=== PATIENT | female | born 1960 | race Caucasian/White ===

== ENCOUNTER 2016-07-15 17:54 | Emergency (ER) | payer OTHER ==
[~2016-07-15] VITALS: Ht 162.6 cm; Wt 127.0 kg
[~2016-07-15 17:54] MED LIST: ALBUTEROL SULFAT3 M1 INH; ATORVASTATIN CA40 MG PO; AUGMENTIN 875 M1 TAB PO; CARISOPRODOL350 MG PO; CELECOXIB200 MG PO; DEXTROAMPH SACC20 MG PO; FLUTICASON0.05 MG/A2 NAS; FUROSEMIDE40 MG PO; HUMALOG 100U100 U/ML SC; LEVAQUIN500 MG PO; LEVEMIR FL300 UNITS/ SC; LISINOPRIL20 MG PO; LYRICA150 MG PO; METFORMIN HYD1000 MG PO; METHADONE HYDRO10 MG PO; MONTELUKAST SOD10 MG PO; MORPHINE SULFAT30 M1 PO; POTASSIUM CHLO20 ME1 PO; TUSSIONEX PENN480 ML PO
--- NOTE | 2016-07-15 18:20 | ED GENERAL ADULT ---
History of Present Illness General Chief Complaint: General Adult Stated Complaint: BIBA FOR LOW BLOOD SUGAR Source: patient Exam Limitations: no limitations Vital Signs & Intake/Output Vital Signs & Intake/Output Vital Signs Date Time Temp Pulse Resp B/P Pulse O2 O2 Flow FiO2 Ox Delivery Rate 07/15 2045 97.9 81 20 147/76 91 Room Air 07/15 1849 Room Air 07/15 1808 98.3 73 16 117/55 98 Room Air Allergies Coded Allergies: NO KNOWN ALLERGIES (03/19/11) Reconcile Medications Albuterol Sulfate 3 ML NEB 3 ML INH TID ASTHMA/BRONCHITIS (Reported) AMOXICILLIN/POTASSIUM CLAV (Augmentin 875-125 Tablet) 875 MG/125 MG TAB 1 TAB PO BID DOG BITE/OPEN FRACTURE Amphetamine Salt Combination (Dextroamph Sacc/Amph Asp/Dextroam Sulf/Amphet) 20 MG TAB 1 TAB PO TID ADHD (Reported) Atorvastatin Calcium (Lipitor) 40 MG TABLET 1 TAB PO DAILY CHOLESTEROL ( Reported) Carisoprodol 350 MG TABLET 1 TAB PO 4 TIMES/DAY MUSCLE SPASMS (Reported) Celecoxib 200 MG CAPSULE 1 CAP PO DAILY OA (Reported) Fluticasone Propionate 50 MCG/ACTUATION SPRAY.SUSP 1 SPRAY JOSELO DAILY SINUSES (Reported) Furosemide 40 MG TABLET 1-2 TAB PO AD DIURETIC (Reported) HYDROCODONE/CHLORPHEN P-STIREX (Tussionex Pennkinetic Susp) (Unknown Strength) ALICIA.ER.12H (Unknown Dose) PO AD BRONCHITIS (Reported) Insulin Detemir (Levemir Flexpen) 100 UNIT/ML (3 ML) INSULN.PEN 23 UNITS SC QHS DIABETES (Reported) Insulin Lispro (Humalog) 100 UNIT/ML VIAL 10-20 UNITS SC TID AC DIABETES ( Reported) Levofloxacin (Levaquin) 500 MG TABLET 1 TAB PO DAILY BRONCHITIS/SINUS INFECTION (Reported) Lisinopril 20 MG TABLET 1 TAB PO DAILY BP (Reported) METFORMIN HCL (Metformin Hydrochloride) 1,000 MG TABLET 0.5 TAB PO DAILY DIABETES (Reported) METHADONE HCL (Methadone Hydrochloride) 10 MG TABLET 8 TAB PO AD PAIN ( Reported) Montelukast Sodium 10 MG TABLET 1 TAB PO QPM ALLERGIES (Reported) Morphine Sulfate 30 MG TAB 1 TAB PO 4 TIMES/DAY PAIN (Reported) Potassium Chloride 20 MEQ TABLET.ER 1 TAB PO DAILY SUPPLEMENT (Reported) Pregabalin (Lyrica) 150 MG CAPSULE 1 CAP PO BID NEUROPATHY (Reported) Triage Nurses Notes Reviewed? yes HPI: This patient is a 55 year old female with a past medical history including diabetes who presented to the emergency department [facility] for evaluation of low blood sugar. The patient reported that she went to a doctor's appointment this afternoon without eating anything beforehand. She reported that after her appointment she went to a restaurant to get soup. She reported, "I must have started to pass out or something because then the police came and brought me here."Her blood sugar en route was 40. She was given 200cc of D10 which brought the sugar up to 147. The patient is denying and chest pain, difficulty breathing , nausea, vomiting, headache, dizziness, lightheadedness, fevers, or any other symptoms. She reported, "I just dont feel good." (DANIELLE ALSTON PA-C) Past History Travel History Traveled to [place] past 21 day No Medical History Any Pertinent Medical History? see below for history Cardiovascular: hypertension, hyperlipidemia Respiratory: asthma Musculoskeletal: chronic back pain Endocrine: diabetes Tetanus Vaccine: 08/23/14 Surgical History Surgical History: non-contributory Psychosocial History What is your primary language Vietnamese Family History Hx Contributory? No (DANIELLE ALSTON PA-C) Review of Systems Review of Systems Constitutional: Reports: no symptoms. EENTM: Reports: no symptoms. Respiratory: Reports: no symptoms. Cardiovascular: Reports: no symptoms. GI: Reports: no symptoms. Genitourinary: Reports: no symptoms. Musculoskeletal: Reports: no symptoms. Skin: Reports: no symptoms. Neurological/Psychological: Reports: no symptoms. Hematologic/Endocrine: Reports: see HPI. All Other Systems: Reviewed and Negative (DANIELLE ALSTON PA-C) Physical Exam Physical Exam General Appearance: well developed/nourished, alert, awake, mild distress Comments: Well-developed well-nourished person in no acute distress HEENT: Normal EENT exam, head normocephalic, moist mucous membranes PERRLA bilaterally Neck: Supple, no lymphadenopathy Back: Normal inspection Cardiovascular: Regular rate and rhythm with no murmurs, rubs, or gallops Respiratory: Chest nontender. No respiratory distress. Few scattered expiratory wheezes heard on auscultation with no rales or rhonchi Abdomen: Soft, nontender nondistended, no appreciable organomegaly. Normal bowel sounds. No ascites Extremity: Noormal and equal pulses. Neuro: Alert oriented x3, cranial nerves II through XII grossly intact. Skin: No appreciable rash on exposed skin, skin is warm and dry. Psych: Mood and affect is flat Core Measures ACS in differential dx? Yes CVA/TIA Diagnosis: No Severe Sepsis Present: No Septic Shock Present: No (GAMALIEL PRYOR,DANIELLE) Progress Differential Diagnoses I considered the following diagnoses in my evaluation of the patient: [ hypoglycemia, DKA, medicaiton reaction, syncope, sepsis] Diagnostic Imaging: Viewed by Me: Radiology Read. Discussed w/RAD: Radiology Read. CXR Impression: PATIENT: ANGEL PARR PRESENT AGE: 55 PATIENT ACCOUNT NO: [id number] : 58 LOCATION: [facility] ORDERING PHYSICIAN: DANIELLE ALSTON PA-C SERVICE DATE: 07/15/16 EXAM TYPE: RAD - XRY- PORTABLE CHEST XRAY EXAMINATION: XR PORTABLE CHEST CLINICAL INFORMATION: Low breath sounds. Wheezing. COMPARISON: Chest x-ray 06/13/2013 TECHNIQUE: Portable AP portable view of the chest was obtained. 7:10 PM FINDINGS: Patient rotated to the right. Status post median sternotomy. No pulmonary vascular congestion. No infiltrate or pleural effusion. No pneumothorax. IMPRESSION: No acute change of chest. DICTATED BY: ROCCO RUBIO MD DATE/TIME DICTATED:07/15/162018 GREASE PACKER:NITIN DATE/TIME TRANSCRIBED:07/15/162018 CONFIDENTIAL, DO NOT COPY WITHOUT APPROPRIATE AUTHORIZATION. <Electronically signed in Other Vendor System> SIGNED BY: ROCCO RUBIO MD 07/15/162023 Initial ED EKG: none Comments: 07/15/2016 7:38:24 PM: Informed by RN that the patient is refusing second amp of D50. The patient was up to void and is currently sitting up eating a food tray. She is calling her to let him know where she is. Discussed this patient with Dr. Garcia who suggested that she be put on a D10 drip. 07/15/2016 8:17:38 PM: I was at the patient's bedside for [id number] evaluation. She is sitting up in the stretcher, alert and oriented. She is currently eating from a food tray. No acute distress and nontoxic appearing. The patient is still refusing another amp of D50. She reported, "I just need to eat." 07/15/2016 8:58:11 PM: Again at the patient's bedside for re-evaluation. She finished eating and is alert and oriented. Reporting that she wants to go home. Last took insulin at around 12:30PM. Will recheck blood sugar. 07/15/2016 9:59:13 PM: This patient is requesitng to go home. Alert and oriented x23. BS 130. Discussed this patient with Dr. Garcia who is in agreement that this patient can be discharged at this time. (GAMALIEL PRYOR,DANIELLE) Plan of Care: Orders Procedure Date/time Status Heart Healthy Diet 07/16 B Active LACTIC ACID 07/15 2118 Active URINALYSIS 07/15 1818 Complete AMMONIA 07/15 1818 Complete LACTIC ACID 07/15 1818 Complete COMPREHENSIVE METABOLIC PANEL 07/15 1818 Complete CBC WITHOUT DIFFERENTIAL 07/15 1818 Complete ACETONE 07/15 1818 Complete Laboratory Tests 07/15/16 1930: Urine Color YEL, Urine Clarity CLEAR, Urine pH 6.5, Ur Specific [place] <= 1.005 , Urine Protein NEG, Urine Ketones NEG, Urine Nitrite NEG, Urine Bilirubin NEG, Urine Urobilinogen 0.2, Ur Leukocyte Esterase NEG, Ur Microscopic EXAM NOT REQUIRED, Urine Hemoglobin NEG, Urine Glucose NEG 07/15/16 1840: Anion Gap 8, Estimated GFR > 60, BUN/Creatinine Ratio 20.0, Glucose 197 H, Lactic Acid 1.1, Calcium 8.7, Total Bilirubin 0.2, AST 35, ALT 78 H, Alkaline Phosphatase 93, Ammonia 12, Total Protein 6.4, Albumin 3.6, Globulin 2.8, Albumin/Globulin Ratio 1.3, CBC w Diff NO MAN DIFF REQ, RBC 4.18 L, MCV 86.6, MCH 28.8, RDW 15.7 H, MPV 7.9, Gran % 75.7 H, Lymphocytes % 14.3 L, Monocytes % 7.8, Eosinophils % 2.0, Basophils % 0.2, Absolute Granulocytes 8.5 H, Absolute Lymphocytes 1.6, Absolute Monocytes 0.9 H, Absolute Eosinophils 0.2, Absolute Basophils 0, PUBS MCHC 33.2, Acetone Level NEGATIVE Departure Departure Disposition: HOME OR SELF CARE Condition: Stable Clinical Impression Primary Impression: Hypoglycemia Referrals: DAVID NORTH,ENMA Allen (PCP/Family) Additional Instructions: Please schedule a follow-up appointment with your primary care physician. Return iummediately for any worsening symptoms or concerns. Departure Forms: Customer Survey General Discharge Information (DANIELLE ALSTON PA-C) PA/DISK OPERATOR Co-Sign Statement Statement: ED Attending supervision documentation- [] I saw and evaluated the patient. I have also reviewed all the pertinent lab results and diagnostic results. I agree with the findings and the plan of care as documented in the PA's/DISK OPERATOR's documentation. [X] I have reviewed the ED Record and agree with the PA's/DISK OPERATOR's documentation. [] Additions or exceptions (if any) to the PAs/DISK OPERATOR's note and plan are summarized below: [] (GLORIA NORTH,CEE Torre) Critical Care Note Critical Care Note Critical Care Time: 30-74 min (DANIELLE ALSTON PA-C)
[2016-07-15 18:48] LABS: ABSOLUTE BASOPHIL COUNT 0 /CUMM (0.0-0.2); ABSOLUTE EOSINOPHIL COUNT 0.2 /CUMM (0.0-0.7); ABSOLUTE GRANULOCYTE CT 8.5 /CUMM (1.4-6.5); ABSOLUTE LYMPH COUNT 1.6 /CUMM (1.2-3.4); ABSOLUTE MONOCYTE COUNT 0.9 /CUMM (0.10-0.60); BASOPHIL % 0.2 % (0.0-2.0); GRANULOCYTE % 75.7 % (42.2-75.2); HEMATOCRIT 36.2 % (37-47); MEAN CORPUSCULAR HGB 28.8 PG (27.0-31.0); MEAN CORPUSCULAR HGB CONC 33.2 G/DL (33.0-37.0); MEAN CORPUSCULAR VOLUME 86.6 FL (81.0-99.0); MEAN PLATELET VOLUME 7.9 FL (7.4-10.4); PLATELET COUNT 271 /CUMM (130-400); RBC DISTRIBUTION WIDTH 15.7 % (11.5-14.5); RED BLOOD CELL CT 4.18 /CUMM (4.20-5.40); WHITE BLOOD CELL COUNT 11.2 /CUMM (4.8-10.8)
--- NOTE | 2016-07-15 20:24 | RADIOLOGY REPORT ---
EXAMINATION: XR PORTABLE CHEST CLINICAL INFORMATION: Low breath sounds. Wheezing. COMPARISON: Chest x-ray 06/13/2013 TECHNIQUE: Portable AP portable view of the chest was obtained. 7:10 PM FINDINGS: Patient rotated to the right. Status post median sternotomy. No pulmonary vascular congestion. No infiltrate or pleural effusion. No pneumothorax. IMPRESSION: No acute change of chest.
[2016-07-15 20:46] VITALS: BP 147/76
== END 2016-07-15 22:06 ==
LOC: ERH 17:54
PROVIDERS: Physician Assistant
DX: E11.649 Type 2 diabetes mellitus with hypoglycemia without coma (principal)
CPT/HCPCS: 81003; 96374

== ENCOUNTER 2016-08-28 15:21 | Inpatient (IN) | payer OTHER, MEDICARE ==
[~2016-08-28] VITALS: Ht 162.6 cm; Wt 122.5 kg
--- NOTE | 2016-08-28 15:25 | NUR ---
56 YEAR OLD FEMALE BIBA FROM DOCTORS OFFICE FOR SHORTNESS OF BREATH. PER EMS PT HAS BEEN TREATED FOR URI SYMPTOMS, UPON ARRIVAL O2 SAT WAS IN THE LOW 90'S. PT ARRIVED TO DEPARTMENT ALERT AND ORIENTED X3 WITH DUONEB RUNNING. PT REPORTS RELIEF FROM BREATHING TREATMENT, SPEAKING IN FULL SENTENCES. PT CHIEF COMPLAINT IS OF RASH ON ABDOMEN, PT ALSO REPORTS THE CELLULITIS IN BLE IS "FLARED UP."
--- NOTE | 2016-08-28 15:34 | ED GENERAL ADULT ---
History of Present Illness General Chief Complaint: Dyspnea (COPD, CHF, Other) Stated Complaint: BIBA SOB Source: patient, EMS Exam Limitations: no limitations Vital Signs & Intake/Output Vital Signs & Intake/Output Vital Signs Date Time Temp Pulse Resp B/P Pulse O2 O2 Flow FiO2 Ox Delivery Rate 08/29 2023 96.5 80 18 162/82 93 Nasal 2.0L Cannula 08/28 1850 94 Nasal 3.0L Cannula 08/28 1741 96.2 86 20 146/68 95 Nasal 2.0L Cannula 08/28 1606 91 Nasal 3.0L Cannula 08/28 1550 97 Nasal 4.0L Cannula 08/28 1547 98.8 22 84 Room Air Room Air 08/28 1524 88 22 132/68 98 Non ReBreather Allergies Coded Allergies: NO KNOWN ALLERGIES (03/19/11) Reconcile Medications Albuterol Sulfate 2.5 MG/3 ML (0.083 %) VIAL.NEB 1 Vial INH/ABBEY 4 TIMES/DAY COPD (Reported) Albuterol Sulfate (Ventolin Hfa) 90 MCG HFA.AER.AD 2 PUF INH PRN COPD ( Reported) Carisoprodol 350 MG TABLET 1 TAB PO TID MUSCLE RELAXER (Reported) Fluticasone Propionate 50 MCG/ACTUATION SPRAY.SUSP 2 SPRAY [place]B DAILY ALLERGIES (Reported) Fluticasone/Salmeterol (Advair 250-50 Diskus) 250 MCG-50 MCG/DOSE BLST.W.DEV 1 PUF INH BID COPD (Reported) Furosemide 80 MG TABLET 2 TAB PO QAM DIURETIC (Reported) Furosemide (Lasix) 80 MG TABLET 1 TAB PO QPM DIURETIC (Reported) Insulin Detemir (Levemir Flextouch) 100 UNIT/ML (3 ML) INSULN.PEN 24 UNITS SC QHS DM (Reported) Insulin Lispro (Humalog Kwikpen U-100) 100 UNIT/ML INSULN.PEN 15 UNITS SC QAM DM (Reported) Insulin Lispro (Humalog Kwikpen U-100) 100 UNIT/ML INSULN.PEN 30 UNITS SC BID DM (Reported) Levofloxacin 500 MG TABLET 1 TAB PO DAILY ANTIBIOTIC (Reported) Lisinopril 20 MG TABLET 1 TAB PO DAILY BP (Reported) Metformin HCl 1,000 MG TABLET 1 TAB PO BID DM (Reported) Methadone Hydrochloride (Methadone HCl) 10 MG TABLET 70 MG PO DAILY PAIN ( Reported) Metolazone 2.5 MG TABLET 1 TAB PO 2XW DIURETIC (Reported) Morphine Sulfate 15 MG TABLET 1 TAB PO TID PAIN (Reported) Potassium Chloride 20 MEQ TAB.ER.PRT 1 TAB PO TID SUPPLEMENT (Reported) Prednisone 5 MG TABLET 10 MG PO BID STEROID (Reported) Pregabalin (Lyrica) 300 MG CAPSULE 1 CAP PO BID NERVE PAIN (Reported) Tiotropium [place] (Spiriva) 18 MCG CAP.W.DEV 1 CAP INH DAILY COPD (Reported) Trazodone HCl 50 MG TABLET 1 TAB PO QPM SLEEP (Reported) Triamcinolone Acetonide 0.1 % CREAM..G. 1 KENA TOP PRN RASH (Reported) Triage Note: 56 YEAR OLD FEMALE BIBA FROM DOCTORS OFFICE FOR SHORTNESS OF BREATH. PER EMS PT HAS BEEN TREATED FOR URI SYMPTOMS, UPON ARRIVAL O2 SAT WAS IN THE LOW 90'S. PT ARRIVED TO DEPARTMENT ALERT AND ORIENTED X3 WITH DUONEB RUNNING. PT REPORTS RELIEF FROM BREATHING TREATMENT, SPEAKING IN FULL SENTENCES. PT CHIEF COMPLAINT IS OF RASH ON ABDOMEN, PT ALSO REPORTS THE CELLULITIS IN BLE IS "FLARED UP." Triage Nurses Notes Reviewed? yes Onset: Abrupt Duration: day(s): Timing: recent history HPI: 08/28/16 The patient was seen on arrival She is a 56-year-old female presents to the emergency department with severe difficulty breathing and expiratory wheezes. She has significant COPD. She continues to smoke. The onset of the symptoms were abrupt, the duration is really unknown, the severity is significant as her symptoms required her to come to the emergency department for care. Upon arrival her O2 sats were in the low 80s. She was confused at times. She is placed on oxygen. She was given albuterol Atrovent nebulizer treatment. Past History Travel History Traveled to [place] past 21 day No Medical History Any Pertinent Medical History? see below for history Neurological: NONE EENT: NONE Cardiovascular: hypertension, hyperlipidemia Respiratory: asthma Gastrointestinal: NONE Hepatic: NONE Renal: NONE Musculoskeletal: chronic back pain Psychiatric: NONE Endocrine: diabetes Blood Disorders: NONE Cancer(s): NONE Tetanus Vaccine: 08/23/14 Surgical History Surgical History: non-contributory Psychosocial History What is your primary language Uzbek Tobacco Use: Never used Family History Hx Contributory? No Review of Systems Review of Systems Constitutional: Denies: fever. EENTM: Denies: visual changes. Respiratory: Reports: cough, short of breath. Cardiovascular: Denies: chest pain. GI: Denies: abdominal pain. Genitourinary: Reports: no symptoms. Musculoskeletal: Reports: no symptoms. Skin: Reports: no symptoms. Neurological/Psychological: Reports: no symptoms. Hematologic/Endocrine: Denies: bruising, bleeding. Physical Exam Physical Exam General Appearance: alert, awake, anxious, moderate distress Head: atraumatic, normal appearance Eyes: Bilateral: normal appearance, PERRL, EOMI. Ears, Nose, Throat: normal ENT inspection Neck: normal inspection, supple Respiratory: decreased breath sounds, wheezing Cardiovascular: tachycardia Peripheral Pulses: 4+ radial (R), 4+ radial (L) Gastrointestinal: soft, non-tender Back: normal range of motion Extremities: pedal edema Neurologic/Psych: awake, alert, oriented x 3 Skin: intact, normal color, warm/dry Core Measures ACS in differential dx? No CVA/TIA Diagnosis: No Severe Sepsis Present: No Septic Shock Present: No Progress Differential Diagnoses I considered the following diagnoses in my evaluation of the patient: [COPD, CHF , pulmonary embolism, pneumonia] Plan of Care: Orders Procedure Date/time Status Consistent Carbohydrate 3 08/29 B Active CBC WITHOUT DIFFERENTIAL 08/29 0600 Active BASIC ELECTROLYTES PLUS BUN&CR 08/29 0600 Active TRC EVALUATION (GEN) 08/28 2120 Active Pathway - chart 08/28 2120 Active CULTURE,URINE 08/28 2120 Active STREP PNEUMO URINARY ANTIGEN 08/28 2120 Active LEGIONELLA URINARY ANTIGEN 08/28 2120 Active BLOOD CULTURE 08/28 2120 Active URINE DRUGS OF ABUSE 08/28 2120 Active URINALYSIS 08/28 2120 Active TROPONIN LEVEL 08/28 2120 Active EKG 08/28 2120 Active CTA CHEST-PULMONARY EMBOLISM 08/29 2055 Active Patient Data 08/28 1927 Active ED Holding Orders 08/28 1841 Active Admit to inpatient 08/28 1841 Active Vital Signs 08/28 1841 Active Code Status 08/28 1841 Active CIWA 08/28 1750 Active FingerStick- Glucose 08/28 1602 Active Add-on Test (ER Only) 08/28 1551 Active ARTERIAL BLOOD GAS (GEN) 08/28 1544 Active Telemetry/Process Technician 08/28 1544 Complete Intake & Output 08/28 1543 Active B-TYPE NATRIURETIC PEP (BNP) 08/28 1529 Complete TROPONIN LEVEL 08/28 1528 Complete D-DIMER 08/28 1528 Complete COMPREHENSIVE METABOLIC PANEL 08/28 1528 Complete CBC WITHOUT DIFFERENTIAL 08/28 1528 Complete EKG 08/28 1525 Active US-EXT BILAT VENOUS DOPPLER 08/28 UNK Active House Staff 08/28 UNK Active VTE Mechanical Prophylaxis 08/28 UNK Active Vital Signs 08/28 UNK Active Intake & Output 08/28 UNK Active FingerStick- Glucose 08/28 UNK Active Current Medications Sig/Zeyad Start time Last Medication Dose Stop Time Status Admin Furosemide 160 MG DAILY 08/29 1000 AC (Lasix) Lisinopril 20 MG DAILY 08/29 1000 AC (Prinivil) Methadone HCl 70 MG DAILY 08/29 1000 AC (Dolophine) Pregabalin 300 MG BID 08/29 1000 AC (Lyrica) Tiotropium [place] 1 PUF DAILY 08/29 1000 AC (Spiriva) Insulin Aspart 0 TIDAC 08/29 0800 AC (NovoLOG) Methylprednisolone 40 MG Q8 08/29 0600 AC (Solumedrol) Azithromycin 500 MG DAILY 08/28 2200 AC (Zithromax) Sodium Chloride 250 ML (Normal Saline 0.9%) Budesonide/ 2 PUF BID 08/28 2200 AC Formoterol Fumarate (Symbicort) Carisoprodol 350 MG TID 08/28 2200 AC (Soma) Furosemide 80 MG QPM 08/28 220 AC (Lasix) Heparin Sodium 5,000 UNIT Q8 08/280 AC (Porcine) Insulin Detemir 12 UNITS BID 08/28 2199 AC (Levemir) Morphine Sulfate 15 MG TID 08/28 2199 AC (MSIR) Trazodone HCl 50 MG QPM 08/28 220 AC (Desyrel) Laboratory Tests 08/28/16 1550: pH 7.36, pCO2 48 H, pO2 73 L, HCO3 27, ABG O2 Sat (Measured) 91.0 L, P-50 ( Temp Corrected) N, Carboxyhemoglobin 2.5, O2 Concentration % 4L, Temperature 98.8, O2 Delivery Method NC, Phlebotomy Draw Site RIGHT RADIAL 08/28/16 1544: Troponin I Cancelled, D-Dimer Cancelled 08/28/16 1529: Anion Gap 9, Estimated GFR > 60, BUN/Creatinine Ratio 14.0, Glucose 36 *L, Calcium 9.0, Total Bilirubin 0.4, AST 56 H, ALT 103 H, Alkaline Phosphatase 83 , Troponin I < 0.01, Hzg-O-Vkhqhcaqfzn Pept 653 H, Total Protein 6.6, Albumin 3.8, Globulin 2.8, Albumin/Globulin Ratio 1.4, CBC w Diff NO MAN DIFF REQ, RBC 4.30, MCV 86.6, MCH 28.6, RDW 16.4 H, MPV 8.0, Gran % 88.6 H, Lymphocytes % 6.5 L, Monocytes % 4.0, Eosinophils % 0.8, Basophils % 0.1, Absolute Granulocytes 9.5 H, Absolute Lymphocytes 0.7 L, Absolute Monocytes 0.4, Absolute Eosinophils 0.1, Absolute Basophils 0, PUBS MCHC 33.0 08/28/16 1528: D-Dimer 390 H Microbiology 08/28 2120 URINE ROUT: Legionella Antigen - ORD 08/28 2120 URINE ROUT: Streptococcus pneumoniae Antigen (M - ORD 08/28 2120 URINE ROUT: Urine Culture - ORD 08/28 2120 BLOOD: Blood Culture - ORD 08/28 2120 BLOOD: Blood Culture - ORD Initial ED EKG: NSR, nonspecific ST T wave chg, right bundle-branch block, left anterior fascicular block, no significant change from the old Prior EKG: unchanged Departure Departure Disposition: STILL A PATIENT Condition: Stable Clinical Impression Primary Impression: COPD (chronic obstructive pulmonary disease) Referrals: ENMA HERNANDEZ MD (PCP/Family) Departure Forms: Customer Survey General Discharge Information Comments Chest x-ray was negative for pneumonia PATIENT: ANGEL PARR PRESENT AGE: 56 PATIENT ACCOUNT NO: [id number] : 58 LOCATION: [facility] ORDERING PHYSICIAN: EDGARDO DAVIES DO SERVICE DATE: 08/28/16 EXAM TYPE: RAD - XRY-PORTABLE CHEST XRAY EXAMINATION: XR PORTABLE CHEST CLINICAL INFORMATION: Shortness of breath COMPARISON: Chest x-ray 07/15/2016 , 06/13/2013 TECHNIQUE: Portable AP view of the chest was obtained. 3:49 PM FINDINGS: There is breathing motion. Status post median sternotomy. Heart size is enlarged. No pulmonary vascular congestion. No infiltrate or pleural effusion. Leads overlie the chest. IMPRESSION: No acute abnormality of chest. DICTATED BY: ROCCO RUBIO MD DATE/TIME DICTATED:08/28/161558 REMOTE PILOT OPERATOR:NITIN DATE/TIME TRANSCRIBED:08/28/161558 CONFIDENTIAL, DO NOT COPY WITHOUT APPROPRIATE AUTHORIZATION. <Electronically signed in Other Vendor System> SIGNED BY: ROCCO RUBIO MD 08/28/16 1445 Admission Note Spoke With: DAVE VELÁSQUEZ MD Documentation of Exam: Documentation of any treatments & extenuating circumstances including Concerns Regarding Discharge (functional status, medication knowledge or non-compliance, living conditions, etc.) that warrant an admission rather than observation: [The patient needs admission for IV steroids, oxygen, nebulizer treatments every 4-6 hours] Critical Care Note Critical Care Note Critical Care Time: 30-74 min
--- NOTE | 2016-08-28 15:42 | NUR ---
DR. DAVIES TO BEDSIDE FOR EVAL.
[2016-08-28 15:47] LABS: ABSOLUTE BASOPHIL COUNT 0 /CUMM (0.0-0.2); ABSOLUTE EOSINOPHIL COUNT 0.1 /CUMM (0.0-0.7); ABSOLUTE GRANULOCYTE CT 9.5 /CUMM (1.4-6.5); ABSOLUTE LYMPH COUNT 0.7 /CUMM (1.2-3.4); ABSOLUTE MONOCYTE COUNT 0.4 /CUMM (0.10-0.60); BASOPHIL % 0.1 % (0.0-2.0); EOSINOPHIL % 0.8 % (0-5); GRANULOCYTE % 88.6 % (42.2-75.2); HEMATOCRIT 37.2 % (37-47); MEAN CORPUSCULAR HGB 28.6 PG (27.0-31.0); MEAN CORPUSCULAR VOLUME 86.6 FL (81.0-99.0); PLATELET COUNT 251 /CUMM (130-400); RBC DISTRIBUTION WIDTH 16.4 % (11.5-14.5); WHITE BLOOD CELL COUNT 10.7 /CUMM (4.8-10.8)
--- NOTE | 2016-08-28 15:48 | NUR ---
RESPIRATORY TO BEDSIDE FOR DUONEB. RADIOLOGY TO BEDSIDE FOR PCXY.
--- NOTE | 2016-08-28 16:05 | NUR ---
PT FOUND TO HAVE FBG <50, DR. DAVIES AWARE, PT PROVIDED WITH APPLE JUICE. WILL RECHECK IN 30 MINUTES.
--- NOTE | 2016-08-28 16:07 | RADIOLOGY REPORT ---
EXAMINATION: XR PORTABLE CHEST CLINICAL INFORMATION: Shortness of breath COMPARISON: Chest x-ray 07/15/2016 , 06/13/2013 TECHNIQUE: Portable AP view of the chest was obtained. 3:49 PM FINDINGS: There is breathing motion. Status post median sternotomy. Heart size is enlarged. No pulmonary vascular congestion. No infiltrate or pleural effusion. Leads overlie the chest. IMPRESSION: No acute abnormality of chest.
--- NOTE | 2016-08-28 16:15 | NUR ---
CRITICAL TEST RESULTS [id number] ANGEL PARR 56 F TESTS AND RESULTS: GLUCOSE 36 Results received and read back by: KELLY MAYO Results received date and time: 08/28/16 1615 The following provider was notified of the results, and read the results back: DR DAVIES Notified date and time: 08/28/16 at 1615
--- NOTE | 2016-08-28 16:33 | NUR ---
REPEAT FBG 70 AT THIS TIME.
--- NOTE | 2016-08-28 16:56 | NUR ---
ASSISTED PT UP TO BEDSIDE COMMODE. PT URINATED APPROX 300CC IN COMMODE. PT BACK IN BED, EATING FOOD TRAY AT THIS TIME
[2016-08-28] MEDS ORDERED: ALBUTEROL2.5 MG/3 M INH/SOL (18:29)
[2016-08-28] MEDS ORDERED: TRIAMCINOLONE A15 G1 TOP (18:30)
[2016-08-28] MEDS ORDERED: FUROSEMIDE80 M1 PO (18:30)
[2016-08-28] MEDS ORDERED: LASIX80 M1 PO (18:30)
[2016-08-28] MEDS ORDERED: ADVAIR 250-501 EACH INH (18:31)
[2016-08-28] MEDS ORDERED: METOLAZONE2.5 M1 PO (18:31)
[2016-08-28] MEDS ORDERED: METFORMIN HCL1000 M1 PO (18:32)
[2016-08-28] MEDS ORDERED: SPIRIVA18 MCG INH (18:32)
[2016-08-28] MEDS ORDERED: LEVOFLOXACIN500 M1 PO (18:32)
[2016-08-28] MEDS ORDERED: MORPHINE SULFAT15 M4 PO (18:33)
[2016-08-28] MEDS ORDERED: METHADONE HCL10 M1 PO (18:33)
[2016-08-28] MEDS ORDERED: PREDNISONE5 M1 PO (18:34)
[2016-08-28] MEDS ORDERED: POTASSIUM CHLO20 ME2 PO (18:34)
[2016-08-28] MEDS ORDERED: TRAZODONE HCL50 M1 PO (18:35)
[2016-08-28] MEDS ORDERED: VENTOLIN HFA18 GM INH (18:35)
[2016-08-28] MEDS ORDERED: HUMALOG KW100 UNIT/1 SC ×2 (18:36→18:37)
[2016-08-28] MEDS ORDERED: FLUTICASONE PRO16 GM NASB (18:36)
[2016-08-28] MEDS ORDERED: CARISOPRODOL350 M1 PO (18:37)
[2016-08-28] MEDS ORDERED: LISINOPRIL20 M1 PO (18:37)
[2016-08-28] MEDS ORDERED: LYRICA300 M1 PO (18:38)
[2016-08-28] MEDS ORDERED: LEVEMIR FL100 UNIT/1 SC (18:38)
--- NOTE | 2016-08-28 19:08 | NUR ---
RT TO BEDSIDE FOR SECOND DUONEB. PT REMAINS ON NC 3L WITH 02 SATURATION 95%.
--- NOTE | 2016-08-28 19:51 | NUR ---
PT ASSIGNED TO ROOM 220 BED 1
--- NOTE | 2016-08-28 20:02 | History & Physical ---
KAT NORTH,SERA 08/28/162000: General Information and HPI History of Present Illness: Ms. Erazo is a 56 year old lady with a PMH significant for HTN, type 2 DM, aortic stenosis s/p valve replacement, COPD, suspected NISHANT, chronic back pain on methadone, and chronic tobacco use, never been admitted to [facility] previously, who presents with worsening exertional dyspnea with cough producitve of yellow sputum over the past 2 weeks. Patient has had exertional dyspnea since December last year and has been on prednisone for the past 2 months. However her resp symptoms acutely worsened about 2 weeks ago. She was supposed to see her PCP but missed her appointment. Since then her dyspnea has even worsened and when she finally saw her PCP today she was found to be hypoxic in 70s. Patient was then sent in by the PCP to ED for further evaluation. She uses albuterol neb QID at home with Ventolin PRN. Patient usually smokes up to 2 PPD but recently only 7 cigs/day because of dyspnea. At the time of the interveiw the patieht denies any f/c, cough, palpitations, dizziness, lightheadedness, abdominal pain, dysuria. ROS remarkable for frequent urination and some chest discomfrt. In ED patient was found to be hypoglycemic with blood glucose of 36. Patient was given glucose with improvement in her FSG to 70 and then 248. On patient is a current smoker up to 2 PPD for 20+ years. She denies any alcohol or illciit drug use. She lives at home with her currently. Brother recently from heroin overdose. She uses a cane and scooter for ambulation. Patient denies any medical illnesses in her family. PCP - Dr. Raymond Pain - Dr. Camejo Full code. Allergies/Medications Allergies: Coded Allergies: NO KNOWN ALLERGIES (03/19/11) Home Med list Albuterol Sulfate 2.5 MG/3 ML (0.083 %) VIAL.NEB 1 Vial INH/ABBEY 4 TIMES/DAY COPD (Reported) Albuterol Sulfate (Ventolin Hfa) 90 MCG HFA.AER.AD 2 PUF INH PRN COPD ( Reported) Carisoprodol 350 MG TABLET 1 TAB PO TID MUSCLE RELAXER (Reported) Fluticasone Propionate 50 MCG/ACTUATION SPRAY.SUSP 2 SPRAY NASB DAILY ALLERGIES (Reported) Fluticasone/Salmeterol (Advair 250-50 Diskus) 250 MCG-50 MCG/DOSE BLST.W.DEV 1 PUF INH BID COPD (Reported) Furosemide 80 MG TABLET 2 TAB PO QAM DIURETIC (Reported) Furosemide (Lasix) 80 MG TABLET 1 TAB PO QPM DIURETIC (Reported) Insulin Detemir (Levemir Flextouch) 100 UNIT/ML (3 ML) INSULN.PEN 24 UNITS SC QHS DM (Reported) Insulin Lispro (Humalog Kwikpen U-100) 100 UNIT/ML INSULN.PEN 15 UNITS SC QAM DM (Reported) Insulin Lispro (Humalog Kwikpen U-100) 100 UNIT/ML INSULN.PEN 30 UNITS SC BID DM (Reported) Levofloxacin 500 MG TABLET 1 TAB PO DAILY ANTIBIOTIC (Reported) Lisinopril 20 MG TABLET 1 TAB PO DAILY BP (Reported) Metformin HCl 1,000 MG TABLET 1 TAB PO BID DM (Reported) Methadone Hydrochloride (Methadone HCl) 10 MG TABLET 70 MG PO DAILY PAIN ( Reported) Metolazone 2.5 MG TABLET 1 TAB PO 2XW DIURETIC (Reported) Morphine Sulfate 15 MG TABLET 1 TAB PO TID PAIN (Reported) Potassium Chloride 20 MEQ TAB.ER.PRT 1 TAB PO TID SUPPLEMENT (Reported) Prednisone 5 MG TABLET 10 MG PO BID STEROID (Reported) Pregabalin (Lyrica) 300 MG CAPSULE 1 CAP PO BID NERVE PAIN (Reported) Tiotropium [place] (Spiriva) 18 MCG CAP.W.DEV 1 CAP INH DAILY COPD (Reported) Trazodone HCl 50 MG TABLET 1 TAB PO QPM SLEEP (Reported) Triamcinolone Acetonide 0.1 % CREAM..G. 1 KENA TOP PRN RASH (Reported) Past History Travel History Traveled to [place] past 21 day No Medical History Neurological: NONE EENT: NONE Cardiovascular: hypertension, hyperlipidemia Respiratory: asthma Gastrointestinal: NONE Hepatic: NONE Renal: NONE Musculoskeletal: chronic back pain Psychiatric: NONE Endocrine: diabetes Blood Disorders: NONE Cancer(s): NONE Tetanus Vaccine: 08/23/14 Surgical History Surgical History: non-contributory Past Family/Social History Family History Relations & Conditions if any Family history was reviewed; no changes noted. Psychosocial History Where do you live? Home Who Do You Live With? spouse Smoking Status: Current Everyday Smoker ETOH Use: denies use Illicit Drug Use: denies illicit drug use Functional Ability Ambulation: cane Review of Systems Review of Systems Constitutional: Reports: see HPI. Exam & Diagnostic Data Last 24 Hrs of Vital Signs/I&O Vital Signs Date Time Temp Pulse Resp B/P Pulse O2 O2 Flow FiO2 Ox Delivery Rate 08/29 2023 96.5 80 18 162/82 93 Nasal 2.0L Cannula 08/28 1850 94 Nasal 3.0L Cannula 08/28 1741 96.2 86 20 146/68 95 Nasal 2.0L Cannula 08/28 1606 91 Nasal 3.0L Cannula 08/28 1550 97 Nasal 4.0L Cannula 08/28 1547 98.8 22 84 Room Air Room Air 08/28 1524 88 22 132/68 98 Non ReBreather Physical Exam General Appearance Alert, Oriented X3, Cooperative, No Acute Distress Skin Erythema and dry skin in BLEs HEENT Atraumatic, PERRLA, EOMI, Mucous Membr. moist/pink Neck Supple, No JVD, No LAD Cardiovascular Regular Rate, Normal S1, Normal S2, No Murmurs, Gallops, Rubs Lungs Clear to Auscultation, Normal Air Movement Abdomen Normal Bowel Sounds, Soft, No Tenderness Extremities Pedal edema in BLEs, Erythema up to the knees in both legs Vascular Normal Pulses, Pulses Symmetrical Last 24 Hrs of Labs/Romain: Laboratory Tests 08/28/16 1550: pH 7.36, pCO2 48 H, pO2 73 L, HCO3 27, ABG O2 Sat (Measured) 91.0 L, P-50 ( Temp Corrected) N, Carboxyhemoglobin 2.5, O2 Concentration % 4L, Temperature 98.8, O2 Delivery Method NC, Phlebotomy Draw Site RIGHT RADIAL 08/28/16 1544: Troponin I Cancelled, D-Dimer Cancelled 08/28/16 1529: Anion Gap 9, Estimated GFR > 60, BUN/Creatinine Ratio 14.0, Glucose 36 *L, Calcium 9.0, Total Bilirubin 0.4, AST 56 H, ALT 103 H, Alkaline Phosphatase 83 , Troponin I < 0.01, Eun-H-Vnrtemxybni Pept 653 H, Total Protein 6.6, Albumin 3.8, Globulin 2.8, Albumin/Globulin Ratio 1.4, CBC w Diff NO MAN DIFF REQ, RBC 4.30, MCV 86.6, MCH 28.6, RDW 16.4 H, MPV 8.0, Gran % 88.6 H, Lymphocytes % 6.5 L, Monocytes % 4.0, Eosinophils % 0.8, Basophils % 0.1, Absolute Granulocytes 9.5 H, Absolute Lymphocytes 0.7 L, Absolute Monocytes 0.4, Absolute Eosinophils 0.1, Absolute Basophils 0, PUBS MCHC 33.0 08/28/16 1528: D-Dimer 390 H Microbiology 08/28 2120 URINE ROUT: Legionella Antigen - ORD 08/28 2120 URINE ROUT: Streptococcus pneumoniae Antigen (M - ORD 08/28 2120 URINE ROUT: Urine Culture - ORD 08/28 2120 BLOOD: Blood Culture - ORD 08/28 2120 BLOOD: Blood Culture - ORD Assessment/Plan Assessment: Ms. Erazo is a 56 year old lady with a PMH significant for HTN, type 2 DM, asthma, supsected COPD not on home oxygen, NISHANT, chronic back pain on methadone, and chronic tobacco use, never been admitted to [facility] previously, who presents with worsening exertional dyspnea with cough producitve of yellow sputum over the past 2 weeks concerning for COPD exacerbation. # Acute hypoxic resp failure * Admit to * Vitals per protocol * TRC neb tx and O2 support as needed * CTA to r/o PE * Plans for COPD as discussed below # COPD exacerbation * IV Solumedrol * IV Zithromax * Consult pulm in the morning * Follow sputum cx # Poorly controlled DM type 2 * Hold oral hypoglycemics * Novolog SSI with accuchecks * Endo consulted for the morning, appreciate recs # Bilateral pedal edema Unlikely to be 2/2 cellulitis since it's bilateral and patient has been afebrile. * Resume Lasix at home dose * Venous doppler of BLE to r/o DVTs # Frequent urination May be contributed by Lasix use. Denies dysuria. Afebrile thus far. * Follow UA/Ucx & Bcx * Cont to monitor for signs of infection # HTN * Resume home meds lisinopril and Lasix # Chronic back pain * Cont home dose of methadone 70mg daily (40mg QAM & 30mg QHS) * Resume other home pain meds # Chronic tobacco use * Nicotine patch 21 - Diabetic diet - Severe pain pathway - DVT ppx with SQH - Full code Full code As Ranked By This Provider Problem List: 1. Hypoglycemia 2. COPD (chronic obstructive pulmonary disease) Core Measures/Miscellaneous Acute Coronary Syndrome ACS Diagnosis: No Cerebrovascular Accident CVA/TIA Diagnosis: No Congestive Heart Failure CHF Diagnosis: No Venous Thromboembolism VTE Risk Factors: Age > 40 No [facility] VTE prophylaxis d/t: LE Edema No VTE Pharm Prophylaxis d/t: No contraindications VTE Diagnosis: No VTE Type: NONE VTE Confirmed by (Test): NONE Sepsis Focused Exam Sepsis Cardiac Exam: Tachycardia Severe Sepsis Severe Sepsis Present: No Septic Shock Septic Shock Present: No Miscellaneous Documentation Attending Case Discussed With: DAVE VELÁSQUEZ MD Primary Care Physician: ENMA HERNANDEZ MD Patient sees these Specialists See HPI Level of Patient Care: General Medicine RACHEL NORTH,MIRA 08/28/168: Resident Review Statement Resident Statement: examined this patient, discussed with purchasing internship Other Findings: Ms. Erazo is a 56-year-old lady with a medical history of extensive nicotine use, diabetes, COPD, hypertension, chronic back pain on methadone, that presented to the emergency room with complaint of dyspnea. She saw her PCP today and was noted to be hypoxic in the 70s and was subsequently sent to the emergency room. She was also found to be hypoglycemic, she had one such episode again back in June 2016. She admitted to having some fevers and muscle aches, yellowish-green sputum going on over the course of last couple of days, she was given Levaquin a couple of days ago by her PCP without much alleviation of her symptoms. Denies any chest pain. She also has chronic venous insufficiency because of which she takes heavy doses of Lasix. She had aortic valve repair back in the 1970s and again in 1998. Vital signs are stable, lungs are rhonchorous and bilateral wheezes appreciated, heart sounds are normal, abdomen soft, constant non-tender bowel sounds are present, bilateral lower extremities are erythematous however not warm Chest x-ray shows no acute abnormality Labs are significant for an elevated d-dimer (possibly because of obesity), hypoglycemia Assessment- 1. COPD exacerbation 2. Obstructive sleep apnea, likelyl given body habitus but never had a sleep study 3. Hypoglycemia, likely secondary to dietary nonadherence after taking insulin 4. Hypertension 5. Insulin-dependent diabetes mellitus 6. Chronic back pain 7. UTI like symptoms 8. Nicotine dependance Plan- GEN med admit Vitals per protocol Garrison culture IV azithromycin for now, IV steroids Urinalysis and culture, U tox Endocrine and pulmonary consults Confirm methadone dose with pharmacy Nicotine 21 g patch Check one more set of troponin and EKG CTA and bilateral lower extremity Dopplers Continue home dose of pain meds DVT prophylaxis with subcutaneous heparin Consistent carb diet Full code DIDIER NORTH, [facility] 08/28/16 2200: Attending MD Review Statement Attending Statement Attending MD Statement: examined this patient, discuss w/resident/PA/RADIO STATION OPERATOR, agreed w/resident/PA/RADIO STATION OPERATOR Attending Assessment/Plan: 56 yo morbidly obese F, smoker, with h/o T2DM, HTN, asthma/?COPD, chronic back pain/lumbar radiculopathy on methadone (previous neurostimulator implant), chronic LE edema, 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 Chills+, chest discomfort+. She reports that since Dec 2015, her symptoms have gradually worsened. She has been treated with Azithro and most recently placed on Levofloxacin, and has been on prednisone (2 tabs now up to 4 tabs QD) for past 1-2 months, without much relief. She has never been diagnosed with COPD, sleep apnea and has not seen a Senior Compliance Officer. ROS: Urinary frequency+, no dysuria. She was seen in the ER on Jul 15 for hypoglycemia as she took insulin but did not eat. She had seen Endocrine @ [facility], but never really followed up. Vitals: sats 84% RA --> 94% on 4L, afebrile, HR 80's. Exam: dry mucous membranes. Pupils equal and RTL, not pin point. Chest b/l expiratory wheezes, reduced air entry. Heart S1S2 regular, ?systolic murmur+, Abdo: soft, NT, multiple scratch/ scab perez. LE: B/l 2+ pitting edema with stasis dermatitis+. Labs: no leukocytosis, D-dimer 390, bicarb 33, glucose 36, AST 56, ALT 103, trop < 0.01, proBNP 653. AB.36/48/73/27 (chronic compensated respiratory acidosis , with metabolic alkalosis). CXR: no infiltrate or effusion. EKG: SR, RBBB, LVH, Qtc 488. Echo (2016): EF 65%, stage 1 diastolic dysfunction, LVH, mild aortic stenosis. 1. Acute hypoxemic respiratory failure, chronic compensated respiratory acidosis / hypercarbia in the setting of COPD exacerbation. No underlying pneumonia or CHF. She may have an undiagnosed component of NISHANT or OHS. Also, she is on chronic opiate therapy placing her at high risk for hypercarbic respiratory failure. GM admit, TRC nebs, sputum culture, IV steroids, IV azithromycin, CTA chest to rule out PE, smoking cessation counseling, nicotine patch. Patient has never had a formal PFT, obtain Pulm consult and outpatient PFTs/ sleep study. Check urine tox screen, UA to rule out UTI. Check TSH, free T4. Check serial ekg and troponin. 2. Recurrent hypoglycemia in this patient with T2DM on insulin. Patient takes her insulin but does not eat after, causing hypoglycemic episodes. She needs nutritional consult, diabetic teaching and re-adjustment of her diabetic meds. Monitor accucheks, check HbA1c, hold OHA, continue insulin lantus and humalog at lower dose. Obtain Endo consult. 3. B/l LE edema appears chronic with stasis dermatitis. I do not think she has bilateral cellulitis. Elevate lower extremities. Will obtain LE dopplers to rule out DVT. Continue lasix and metolazone as prescribed. 4. Chronic back pain on methadone. Prescribed by Dr. Laws and received from [facility]. Confirm dose in AM and resume. Continue morphine 15 TID. 5. Transaminitis of unclear etiology. IV hydration and recheck LFTs in AM. If persistentl elevated, consider RUQ ultrasound, hepatitis panel, etc. DVT ppx Hep SC. Full code.
--- NOTE | 2016-08-28 22:01 | Admission Certification ---
Admission Certification Certification Statement - As attending physician, I certify that at the time of - admission, based on clinical presentation, severity of - symptoms, need for further diagnostic testing and - therapeutic interventions, and risk of adverse outcomes - without in-hospital treatment, in my clinical assessment, - this patient requires an acute hospital stay for a minimum - of two nights or longer. I have also considered psychsocial - factors such as support system, advanced age, financial - issues, cognitive issues, and failed out-patient treatments, - past re-admission history, safety of patient, and lack of - compliance as applicable. Specific rationale supporting this admission is: Acute hypoxemic respiratory failure, chronic hypercarbia in the setting of COPD exacerbation.
--- NOTE | 2016-08-28 22:52 | NUR ---
NURSE NOTE: PT CAME TO FLOOR AAOX3, 2LNC, IV ACESSS. 10/25 PAIN. REPORT FROM JEAN-CLAUDE IN ED. PT CAME TO FLOOR VIA TRANSPORT ONLY, NO FAMILY ETC. VSS, WILL CONTINUE TO MONITOR.
--- NOTE | 2016-08-28 22:55 | NUR ---
NURSE NOTE: PT WENT TO CAT SCAN FOR CHEST CT. RADIOLOGY JUST CALLED TO INFORM PT LIKELY TO REFUSE. WILL CONTINUE TO MONITOR.
--- NOTE | 2016-08-28 23:05 | NUR ---
NURSE NOTE: CT SCAN CALLED PT REFUSED SCAN.
[2016-08-28 23:30] VITALS: BP 153/78
[2016-08-29] VITALS: BP 153/78
--- NOTE | 2016-08-29 02:37 | CT SCAN REPORT ---
EXAMINATION: CT PULMONARY EMBOLISM STUDY CLINICAL INFORMATION: Dyspnea, tachycardia. COMPARISON: 08/28/2016. TECHNIQUE: Contiguous helical images of the chest were obtained following the administration of IV contrast. Multiplanar reconstructions were performed. MIPS were obtained and reviewed. DLP: 585 mGy-cm. CONTRAST: 73 mL of Optiray 350 were administered without incident. FINDINGS: The heart is of normal size. There is no pericardial effusion. The great vessels are unremarkable. Specifically, there is no pulmonary arterial filling defect. There is no CT evidence for pulmonary embolism. There are no chest wall masses. Intact midline sternal wires are present. Review of lung windows demonstrates that there are neither pleural effusions nor pneumothoraces. There is a small focus of and groundglass opacification within the superior segment of the right lower lobe. There are no pulmonary parenchymal nodules. Limited evaluation of the upper abdomen demonstrates that the liver is of normal size and attenuation without focal lesions. Normal adrenal glands are identified. IMPRESSION: No CT evidence for pulmonary embolism. Small focus of groundglass opacification within the superior segment of the right lower lobe.
[2016-08-29 07:27] VITALS: BP 142/76
--- NOTE | 2016-08-29 07:45 | NUR ---
APPX 2310, PT RETURNED FROM CT SCAN HAVING REFUSED PROCEDURE. AFTER VISIT FROM MD KAT ZAMORA, PT AGREED TO TRY SCAN AGAIN. XANAX ORDERED BY AND GIVEN TO PT. ORDERED SCEDULED METHADONE NOT BE GIVEN UNTIL PT RETURNED FROM CT SCAN. UPON RETURN, PT GIVEN METHADONE AND RESTING COMFORTABLY
[2016-08-29 08:04] LABS: ABSOLUTE BASOPHIL COUNT 0 /CUMM (0.0-0.2); ABSOLUTE EOSINOPHIL COUNT 0 /CUMM (0.0-0.7); ABSOLUTE GRANULOCYTE CT 5.7 /CUMM (1.4-6.5); ABSOLUTE LYMPH COUNT 0.8 /CUMM (1.2-3.4); ABSOLUTE MONOCYTE COUNT 0.5 /CUMM (0.10-0.60); BASOPHIL % 0.2 % (0.0-2.0); EOSINOPHIL % 0 % (0-5); GRANULOCYTE % 80.9 % (42.2-75.2); HEMATOCRIT 34.9 % (37-47); MEAN CORPUSCULAR HGB 28.8 PG (27.0-31.0); MEAN CORPUSCULAR HGB CONC 33.2 G/DL (33.0-37.0); MEAN CORPUSCULAR VOLUME 86.8 FL (81.0-99.0); MEAN PLATELET VOLUME 8.4 FL (7.4-10.4); PLATELET COUNT 254 /CUMM (130-400); RBC DISTRIBUTION WIDTH 16.5 % (11.5-14.5); RED BLOOD CELL CT 4.02 /CUMM (4.20-5.40)
--- NOTE | 2016-08-29 09:19 | Cons- Pulmonary ---
General Information and HPI Consulting Request Date of Consult: 08/29/16 Requested By: nam Reason for Consult: Hypoxic respiratory failure COPD exacerbation History of Present Illness: Patient is a 56-year-old morbidly obese woman actively smoking history of chronic pain on multiple opiates suspected sleep apnea status post aVR admitted with acute on chronic shortness of breath. Patient smokes as much as 2 packs per day and has had persistent shortness of breath. She presented hypoxic to the emergency room. CTA was negative for PE or evidence of pneumonia. Oxygen saturation on 2 L is 98%. Cardiac ultrasound in January showed no evidence of pulmonary hypertension. Allergies/Medications Allergies: Coded Allergies: NO KNOWN ALLERGIES (03/19/11) Home Med List: Albuterol Sulfate 2.5 MG/3 ML (0.083 %) VIAL.NEB 1 Vial INH/ABBEY 4 TIMES/DAY COPD (Reported) Albuterol Sulfate (Ventolin Hfa) 90 MCG HFA.AER.AD 2 PUF INH PRN COPD ( Reported) Carisoprodol 350 MG TABLET 1 TAB PO TID MUSCLE RELAXER (Reported) Fluticasone Propionate 50 MCG/ACTUATION SPRAY.SUSP 2 SPRAY NASB DAILY ALLERGIES (Reported) Fluticasone/Salmeterol (Advair 250-50 Diskus) 250 MCG-50 MCG/DOSE BLST.W.DEV 1 PUF INH BID COPD (Reported) Furosemide 80 MG TABLET 2 TAB PO QAM DIURETIC (Reported) Furosemide (Lasix) 80 MG TABLET 1 TAB PO QPM DIURETIC (Reported) Insulin Detemir (Levemir Flextouch) 100 UNIT/ML (3 ML) INSULN.PEN 24 UNITS SC QHS DM (Reported) Insulin Lispro (Humalog Kwikpen U-100) 100 UNIT/ML INSULN.PEN 15 UNITS SC QAM DM (Reported) Insulin Lispro (Humalog Kwikpen U-100) 100 UNIT/ML INSULN.PEN 30 UNITS SC BID DM (Reported) Levofloxacin 500 MG TABLET 1 TAB PO DAILY ANTIBIOTIC (Reported) Lisinopril 20 MG TABLET 1 TAB PO DAILY BP (Reported) Metformin HCl 1,000 MG TABLET 1 TAB PO BID DM (Reported) Methadone Hydrochloride (Methadone HCl) 10 MG TABLET 70 MG PO DAILY PAIN ( Reported) Metolazone 2.5 MG TABLET 1 TAB PO 2XW DIURETIC (Reported) Morphine Sulfate 15 MG TABLET 1 TAB PO TID PAIN (Reported) Potassium Chloride 20 MEQ TAB.ER.PRT 1 TAB PO TID SUPPLEMENT (Reported) Prednisone 5 MG TABLET 10 MG PO BID STEROID (Reported) Pregabalin (Lyrica) 300 MG CAPSULE 1 CAP PO BID NERVE PAIN (Reported) Tiotropium [place] (Spiriva) 18 MCG CAP.W.DEV 1 CAP INH DAILY COPD (Reported) Trazodone HCl 50 MG TABLET 1 TAB PO QPM SLEEP (Reported) Triamcinolone Acetonide 0.1 % CREAM..G. 1 KENA TOP PRN RASH (Reported) Review of Systems Review of Systems Constitutional: Denies: chills, fever. Cardiovascular: Reports: edema. Denies: chest pain. Respiratory: Reports: cough, orthopnea, short of breath. GI: Denies: abdominal pain, diarrhea, melena. Past History Travel History Traveled to [place] past 21 day No Medical History Neurological: NONE EENT: NONE Cardiovascular: hypertension, hyperlipidemia Respiratory: asthma Gastrointestinal: NONE Hepatic: NONE Renal: NONE Musculoskeletal: chronic back pain Psychiatric: NONE Endocrine: diabetes Blood Disorders: NONE Cancer(s): NONE Surgical History Surgical History: non-contributory Psychosocial History Where Do You Live? Home Who Do You Live With? spouse Smoking Status: Current Everyday Smoker ETOH Use: denies use Illicit Drug Use: denies illicit drug use Functional Ability Ambulation: cane Exam & Diagnostic Data Last 24 Hrs of Vital Signs/I&O Vital Signs Date Time Temp Pulse Resp B/P Pulse O2 O2 Flow FiO2 Ox Delivery Rate 08/29 0727 97.6 80 20 142/76 98 Nasal 2.0L Cannula 08/29 0000 Nasal 2.0L Cannula 08/29 0000 98.7 20 88 153/78 08/28 2330 98.7 88 20 153/78 95 Nasal 2.0L Cannula 08/28 2210 95 Nasal 2.0L Cannula 08/28 202 96.5 80 18 162/82 93 Nasal 2.0L Cannula 08/28 1850 94 Nasal 3.0L Cannula 08/28 1741 96.2 86 20 146/68 95 Nasal 2.0L Cannula 08/28 1606 91 Nasal 3.0L Cannula 08/28 1550 97 Nasal 4.0L Cannula 08/28 1547 98.8 22 84 Room Air Room Air 08/28 1524 88 22 132/68 98 Non ReBreather Intake & Output 08/29 1600 08/29 0800 08/29 0000 Intake Total 270 240 Output Total 1400 Balance -1130 240 Intake, IV 270 Intake, Oral 240 Output, Urine 1400 Patient 270 lb Weight Last 48 Hrs of Labs/Romain: Laboratory Tests 08/29/16 0900: pH 7.41, pCO2 52 H, pO2 86, HCO3 33 H, ABG O2 Sat (Measured) 96.0, Carboxyhemoglobin 1.2 L, O2 Concentration % 3L, O2 Delivery Method NC, Phlebotomy Draw Site RIGHT RADIAL 08/29/16 0611: Anion Gap 9, Estimated GFR > 60, BUN/Creatinine Ratio 15.0, Glucose Pending, Hemoglobin A1c Pending, Total Bilirubin 0.2, Direct Bilirubin 0.2, AST 41 H, ALT 101 H, Alkaline Phosphatase 115, Total Protein 6.1 L, Albumin 3.4 L, CBC w Diff NO MAN DIFF REQ, RBC 4.02 L, MCV 86.8, MCH 28.8, RDW 16.5 H, MPV 8.4, Gran % 80.9 H, Lymphocytes % 11.4 L, Monocytes % 7.5, Eosinophils % 0, Basophils % 0.2, Absolute Granulocytes 5.7, Absolute Lymphocytes 0.8 L, Absolute Monocytes 0.5, Absolute Eosinophils 0, Absolute Basophils 0, PUBS MCHC 33.2 08/29/16 0225: Urine Opiates Screen 1805.00, Methadone Screen > 735 H, Barbiturate Screen < 60 , Ur Phencyclidine Scrn < 6.00, Amphetamines Screen < 100, U Benzodiazepines Scrn < 85, Urine Cocaine Screen < 50, Urine Cannabis Screen < 5.00, Urine Color YEL, Urine Clarity CLEAR, Urine pH 6.0, Ur Specific [place] 1.010, Urine Protein NEG, Urine Ketones NEG, Urine Nitrite NEG, Urine Bilirubin NEG, Urine Urobilinogen 0.2, Ur Leukocyte Esterase NEG, Ur Microscopic EXAM NOT REQUIRED, Urine Hemoglobin NEG, Urine Glucose >=1000 H 08/29/16 0015: Troponin I < 0.01 08/28/16 1550: pH 7.36, pCO2 48 H, pO2 73 L, HCO3 27, ABG O2 Sat (Measured) 91.0 L, P-50 ( Temp Corrected) N, Carboxyhemoglobin 2.5, O2 Concentration % 4L, Temperature 98.8, O2 Delivery Method NC, Phlebotomy Draw Site RIGHT RADIAL 08/28/16 1544: Troponin I Cancelled, D-Dimer Cancelled 08/28/16 1529: Anion Gap 9, Estimated GFR > 60, BUN/Creatinine Ratio 14.0, Glucose 36 *L, Calcium 9.0, Total Bilirubin 0.4, AST 56 H, ALT 103 H, Alkaline Phosphatase 83 , Troponin I < 0.01, Ual-C-Vzracpoigvv Pept 653 H, Total Protein 6.6, Albumin 3.8, Globulin 2.8, Albumin/Globulin Ratio 1.4, TSH 1.410, Free T4 1.16, CBC w Diff NO MAN DIFF REQ, RBC 4.30, MCV 86.6, MCH 28.6, RDW 16.4 H, MPV 8.0, Gran % 88.6 H, Lymphocytes % 6.5 L, Monocytes % 4.0, Eosinophils % 0.8, Basophils % 0.1, Absolute Granulocytes 9.5 H, Absolute Lymphocytes 0.7 L, Absolute Monocytes 0.4, Absolute Eosinophils 0.1, Absolute Basophils 0, PUBS MCHC 33.0 08/28/16 1528: D-Dimer 390 H Assessment/Plan Impression/Plan: 36-year-old morbidly obese woman on high-dose opiates admitted with exacerbation of COPD she's been counseled regarding the need for smoking cessation. She likely has evidence of chronic hypercarbia based on elevated bicarbonate. There is high suspicion for pulmonary hypertension and venous insufficiency with chronic edema and erythema. Recommendations: Assess blood gas. Trial of BiPAP especially at night with settings of ST 28 IPAP 18 EPAP 6. Continue IV steroids and antibiotics. Minimize narcotics with evidence of hypercarbia. Patient should have an outpatient sleep study. Patient is been counseled regarding the need for smoking cessation. Agent will require follow-up outpatient CT scan for groundglass opacity seen on CAT scan. DVT prophylaxis Consult Acknowledgment - Thank you for your consult request.
--- NOTE | 2016-08-29 11:26 | PN- Housestaff ---
SAUL NORTH,BANDAR 08/29/16 1126: Subjective Follow-up For: COPD exacerbation Elevated d-dimer Bilateral lower extremity edema Increase LFT Subjective: Saw patient at bedside this a.m. She seems significantly lethargic when speaking with her she kept falling asleep in the middle of the conversation. Patient denied any dizziness confusion and headache nausea vomiting. She stated to his usual health. We'll order an ABG. Patient states that she is not on CPAP or BiPAP or oxygen at home. Review of Systems Constitutional: Reports: malaise. Denies: chills, fever. EENTM: Reports: no symptoms. Cardiovascular: Denies: chest pain, palpitations. Respiratory: Denies: cough, short of breath, sputum production, wheezing. Gastrointestinal: Reports: no symptoms. Genitourinary: Reports: no symptoms. Musculoskeletal: Denies: muscle pain, muscle stiffness. Skin: Denies: erythema, lesions, rash. Objective Last 24 Hrs of Vital Signs/I&O Vital Signs Date Time Temp Pulse Resp B/P Pulse O2 O2 Flow FiO2 Ox Delivery Rate 08/29 1558 96 Nasal 3.0L Cannula 08/29 1424 98.2 77 20 150/70 92 08/29 1058 Nasal 3.0L Cannula 08/29 1025 80 142/76 08/29 0917 Nasal 3.0L Cannula 08/29 0800 Nasal 2.0L Cannula 08/29 0727 97.6 80 20 142/76 98 Nasal 2.0L Cannula 08/29 0000 Nasal 2.0L Cannula 08/29 0000 98.7 20 88 153/78 08/28 2330 98.7 88 20 153/78 95 Nasal 2.0L Cannula 08/28 2210 95 Nasal 2.0L Cannula 08/28 2024 96.5 80 18 162/82 93 Nasal 2.0L Cannula 08/28 1850 94 Nasal 3.0L Cannula 08/28 1741 96.2 86 20 146/68 95 Nasal 2.0L Cannula Intake & Output 08/29 1600 08/29 0800 08/29 0000 Intake Total 270 240 Output Total 1601 1400 Balance -1601 -1130 240 Intake, IV 270 Intake, Oral 240 Output, Stool 1 Output, Urine 1600 1400 Patient 122.47 kg Weight Physical Exam General Appearance: Alert, Oriented X3, Cooperative, No Acute Distress Skin: No Rashes, No Significant Lesion HEENT: Atraumatic, PERRLA, EOMI Neck: Supple Cardiovascular: Regular Rate, Normal S1, Normal S2, No Murmurs Lungs: lungs sounded extremely tight with decreased air movement. She had some slight expiratory wheezes. No crackles or rhonchi appreciated Abdomen: Soft, No Tenderness Extremities: bilateral lower extremities erythematous from ankle to knee. Significant cracking of the heels. Patient looks like she has poor hygiene. She also has chronic venous stasis changes. Both lower extremities warm to touch. Right > Left lower extremity erythema Vascular: Pulses Symmetrical Assessment/Plan Assessment: This is a 56-year-old female past medical history significant for hypertension, diabetes, aortic stenosis status post valve replacement, COPD not on home OT, NISHANT, chronic back pain on methadone, and a 2 pack per day habit for "forever." She comes in for chief complaint of exertional dyspnea or productive cough. Patient states her symptoms worsened acutely over the past 2 weeks however they' ve been present since last December. She has been on chronic prednisone therapy for the past 2 months. She is admitted to the general medicine floor for continued evaluation of bilateral lower extremity erythema and COPD exacerbation. Plan 1. Acute hypoxic 20 failure: Patient was found to be desaturating to the 70s and 80s at PCP office. Was sent to ED. She has been saturating well on 2 L O2. She does not use any oxygen at home. She is on chronic prednisone therapy for the past 2 months per PCP. She has a 2 pack per day habit of smoking. She is somnolent and lethargic this AM. * Follow-up ABG * Appreciate pulmonary consult. * BiPAP trial for night, see supervisor lump room note for settings 2. Diabetes: Patient given an episode of hypoglycemia. She states that she took overdose of insulin but different doctor's appointment and did not have time to eat. To have hypoglycemia down to 36 in ED upon admission. Her usual home regimen involves 24 units of Levemir twice a day and 15 units of short- acting prior to breakfast, followed by 15 units prior to lunch and 30 units prior to dinner. * Endocrinology consult appreciated * Levemir decreased to 12 units to this regimen * Her sliding scale was modified see order. 3. Elevated d-dimer: Patient given a d-dimer 390, given shortness of breath there was suspicion for possibility of PE. CTA was negative. However did show some groundglass opacities. * Unsure of etiology of elevated d-dimer. Patient does have lower extremity erythema, possibly DVT versus cellulitis. 4. Bilateral lower extremity erythema: Patient came in with bilateral lower extremity edema THAT she states acutely worsened over the past 4 days. There are some ground glass opacities present bilaterally. Need to rule out DCT vs cellulitis. * bilat le dopplers * watch off abx full code chemical dvt ppx diabetic diet Problem List: 1. COPD (chronic obstructive pulmonary disease) 2. Hypoglycemia Pain Ratin Pain Location: none Pain Goal: Remain pain free Pain Plan: current reg Tomorrow's Labs & Rationales: cbc bep MELISSA COREAS 08/29/16 1300: Objective Last 24 Hrs of Vital Signs/I&O Vital Signs Date Time Temp Pulse Resp B/P Pulse O2 O2 Flow FiO2 Ox Delivery Rate 08/31 0955 80 120/80 08/31 0853 93 Nasal 2.0L Cannula 08/31 0800 92 Nasal 2.0L Cannula 08/31 0651 98.2 73 20 140/80 100 Nasal Cannula 08/31 0600 98.2 73 20 140/80 08/31 0354 88 95 08/31 0038 82 96 08/31 0000 96 BIPAP 30% 08/30 2310 88 97 08/30 2140 98.1 81 20 140/80 96 08/30 1630 96 08/30 1600 Nasal 2.0L Cannula 08/30 1555 89 97 08/30 1539 97 Nasal 2.0L Cannula 08/30 1401 98.7 76 20 142/80 96 Nasal 3.0L Cannula 08/30 1205 95 Intake & Output 08/31 1600 08/31 0800 08/31 0000 Intake Total 600 600 Output Total 1600 501 Balance -1000 99 Intake, IV 0 Intake, Oral 600 600 Number 0 Bowel Movements Output, Stool 1 Output, Urine 1600 500 Attending MD Review Statement Attending Statement Attending MD Statement: examined this patient, discuss w/resident/PA/CHURN OPERATOR MARGARINE, agreed w/resident/PA/CHURN OPERATOR MARGARINE, discussed with family, reviewed EMR data (avail), discussed with nursing, discussed with case mgmt, reviewed images Attending Assessment/Plan: "56 yo morbidly obese F, smoker, with h/o T2DM, HTN, asthma/?COPD, chronic back pain/lumbar radiculopathy on methadone (previous neurostimulator implant), chronic LE edema, 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 Chills+, chest discomfort+. She reports that since Dec 2015, her symptoms have gradually worsened. She has been treated with Azithro and most recently placed on Levofloxacin, and has been on prednisone (2 tabs now up to 4 tabs QD) for past 1-2 months, without much relief. She has never been diagnosed with COPD, sleep apnea and has not seen a Knitting Inspector." ASSESSMENT AND PLAN 1. Acute respiratory failure, chronic compensated respiratory acidosis/ hypercarbia in the setting of COPD exacerbation. No underlying pneumonia or CHF. She may have an undiagnosed component of NISHANT or OHS. Pulmonary consulted , c/w iv Steroids, abx. trial of bipap at night as per pulm. obtain ECHO. Patient will require f/u o/p CT chest for groundglass opacity. 2. Recurrent hypoglycemia in this patient with T2DM on insulin. Diabetes education RISS and titrate insulin as needed. 3. B/l LE edema appears chronic with stasis dermatitis. refused USG b/l legs 4. Chronic back pain on methadone. Prescribed by Dr. Laws and received from [facility]. resume methadone. 5. Transaminitis of unclear etiology. IV hydration. If persistently elevated, consider RUQ ultrasound, hepatitis panel, etc. DVT ppx Hep SC. Full code.
--- NOTE | 2016-08-29 12:48 | Cons- Endocrinology ---
General Information and HPI Consulting Request Date of Consult: 08/29/16 Requested By: medical team Reason for Consult: management of DM type 2 Source of Information: patient, old records Exam Limitations: no limitations History of Present Illness: 56 year old female with a PMH significant for HTN, type 2 DM, aortic stenosis s/ p valve replacement, COPD, ? NISHANT, chronic back pain on methadone, and chronic tobacco use, presented with worsening exertional dyspnea, producitve cough of yellow sputum over the past 2 weeks, and skins lesions along with ? cellulitis of both LE. At home, she was on metformin, twice a day, Levemir 24 units daily and Humalog before meals. She was on prednisone prior to admission. In hospital, she has been on Levemir 12 units twice a day, Novolog coverage before meals. Her FSGs were 70, 248, 279 and 218. Allergies/Medications Allergies: Coded Allergies: NO KNOWN ALLERGIES (03/19/11) Home Med List: Albuterol Sulfate 2.5 MG/3 ML (0.083 %) VIAL.NEB 1 Vial INH/ABBEY 4 TIMES/DAY COPD (Reported) Albuterol Sulfate (Ventolin Hfa) 90 MCG HFA.AER.AD 2 PUF INH PRN COPD ( Reported) Carisoprodol 350 MG TABLET 1 TAB PO TID MUSCLE RELAXER (Reported) Fluticasone Propionate 50 MCG/ACTUATION SPRAY.SUSP 2 SPRAY [place]B DAILY ALLERGIES (Reported) Fluticasone/Salmeterol (Advair 250-50 Diskus) 250 MCG-50 MCG/DOSE BLST.W.DEV 1 PUF INH BID COPD (Reported) Furosemide 80 MG TABLET 2 TAB PO QAM DIURETIC (Reported) Furosemide (Lasix) 80 MG TABLET 1 TAB PO QPM DIURETIC (Reported) Insulin Detemir (Levemir Flextouch) 100 UNIT/ML (3 ML) INSULN.PEN 24 UNITS SC QHS DM (Reported) Insulin Lispro (Humalog Kwikpen U-100) 100 UNIT/ML INSULN.PEN 15 UNITS SC QAM DM (Reported) Insulin Lispro (Humalog Kwikpen U-100) 100 UNIT/ML INSULN.PEN 30 UNITS SC BID DM (Reported) Levofloxacin 500 MG TABLET 1 TAB PO DAILY ANTIBIOTIC (Reported) Lisinopril 20 MG TABLET 1 TAB PO DAILY BP (Reported) Metformin HCl 1,000 MG TABLET 1 TAB PO BID DM (Reported) Methadone Hydrochloride (Methadone HCl) 10 MG TABLET 70 MG PO DAILY PAIN ( Reported) Metolazone 2.5 MG TABLET 1 TAB PO 2XW DIURETIC (Reported) Morphine Sulfate 15 MG TABLET 1 TAB PO TID PAIN (Reported) Potassium Chloride 20 MEQ TAB.ER.PRT 1 TAB PO TID SUPPLEMENT (Reported) Prednisone 5 MG TABLET 10 MG PO BID STEROID (Reported) Pregabalin (Lyrica) 300 MG CAPSULE 1 CAP PO BID NERVE PAIN (Reported) Tiotropium [place] (Spiriva) 18 MCG CAP.W.DEV 1 CAP INH DAILY COPD (Reported) Trazodone HCl 50 MG TABLET 1 TAB PO QPM SLEEP (Reported) Triamcinolone Acetonide 0.1 % CREAM..G. 1 KENA TOP PRN RASH (Reported) Review of Systems Review of Systems Constitutional: Reports: see HPI. Cardiovascular: Denies: chest pain. Respiratory: Reports: cough, short of breath, sputum production. GI: Denies: abdominal pain. Genitourinary: Reports: frequency. Skin: Reports: see HPI (scattered lesions over body), erythema (on her LE bilaterally) . Past History Travel History Traveled to [place] past 21 day No Medical History Neurological: NONE EENT: NONE Cardiovascular: hypertension, hyperlipidemia Respiratory: asthma Gastrointestinal: NONE Hepatic: NONE Renal: NONE Musculoskeletal: chronic back pain Psychiatric: NONE Endocrine: diabetes Blood Disorders: NONE Cancer(s): NONE Surgical History Surgical History: non-contributory Psychosocial History Where Do You Live? Home Who Do You Live With? spouse Smoking Status: Current Everyday Smoker ETOH Use: denies use Illicit Drug Use: denies illicit drug use Functional Ability Ambulation: cane Exam & Diagnostic Data Last 24 Hrs of Vital Signs/I&O Vital Signs Date Time Temp Pulse Resp B/P Pulse O2 O2 Flow FiO2 Ox Delivery Rate 08/29 1058 Nasal 3.0L Cannula 08/29 1025 80 142/76 08/29 0917 Nasal 3.0L Cannula 08/29 0800 Nasal 2.0L Cannula 08/29 0727 97.6 80 20 142/76 98 Nasal 2.0L Cannula 08/29 0000 Nasal 2.0L Cannula 08/29 0000 98.7 20 88 153/78 08/28 2330 98.7 88 20 153/78 95 Nasal 2.0L Cannula 08/28 2210 95 Nasal 2.0L Cannula 08/29 2023 96.5 80 18 162/82 93 Nasal 2.0L Cannula 08/28 1850 94 Nasal 3.0L Cannula 08/28 1741 96.2 86 20 146/68 95 Nasal 2.0L Cannula 08/28 1606 91 Nasal 3.0L Cannula 08/28 1550 97 Nasal 4.0L Cannula 08/28 1547 98.8 22 84 Room Air Room Air 08/28 1524 88 22 132/68 98 Non ReBreather Intake & Output 08/29 1600 08/29 0800 08/29 0000 Intake Total 270 240 Output Total 600 1400 Balance -600 -1130 240 Intake, IV 270 Intake, Oral 240 Output, Urine 600 1400 Patient 270 lb Weight Physical Exam General Appearance: mild distress, obese Neck: cushingoid appearance ? due to steroid Respiratory: crackles, rhonchi, wheezing Cardiovascular: regular rate/rhythm Gastrointestinal: distention Extremities: swelling, erythema on LE bilaterally Labs/Romain Results: Laboratory Tests 08/29 08/29 0900 0611 Blood Gas pH (7.35 - 7.45 PH) 7.41 pCO2 (35 - 45 TORR) 52 H pO2 (80 - 100 TORR) 86 HCO3 (21 - 28 MEQ/L) 33 H ABG O2 Sat (Measured) (>96.0 %) 96.0 Carboxyhemoglobin (1.5 - 5.0 %) 1.2 L O2 Concentration % 3L O2 Delivery Method NC Chemistry Sodium (137 - 145 mmol/L) 138 Potassium (3.5 - 5.1 mmol/L) 3.9 Chloride (98 - 107 mmol/L) 93 L Carbon Dioxide (22 - 30 mmol/L) 36 H Anion Gap (5 - 16) 9 BUN (7 - 17 mg/dL) 9 Creatinine (0.5 - 1.0 mg/dL) 0.6 Estimated GFR (>60 ml/min) > 60 BUN/Creatinine Ratio (7 - 25 %) 15.0 Glucose (65 - 99 mg/dL) 324 H Hemoglobin A1c (4.2 - 5.8 %) 8.5 H Total Bilirubin (0.2 - 1.3 mg/dL) 0.2 Direct Bilirubin (< 0.4 mg/dL) 0.2 AST (14 - 36 U/L) 41 H ALT (9 - 52 U/L) 101 H Alkaline Phosphatase (<127 U/L) 115 Total Protein (6.3 - 8.2 g/dL) 6.1 L Albumin (3.5 - 5.0 g/dL) 3.4 L Hematology CBC w Diff NO MAN DIFF REQ WBC (4.8 - 10.8 /CUMM) 7.0 RBC (4.20 - 5.40 /CUMM) 4.02 L Hgb (12.0 - 16.0 G/DL) 11.6 L Hct (37 - 47 %) 34.9 L MCV (81.0 - 99.0 FL) 86.8 MCH (27.0 - 31.0 PG) 28.8 RDW (11.5 - 14.5 %) 16.5 H Plt Count (130 - 400 /CUMM) 254 MPV (7.4 - 10.4 FL) 8.4 Gran % (42.2 - 75.2 %) 80.9 H Lymphocytes % (20.5 - 51.1 %) 11.4 L Monocytes % (1.7 - 9.3 %) 7.5 Eosinophils % (0 - 5 %) 0 Basophils % (0.0 - 2.0 %) 0.2 Absolute Granulocytes (1.4 - 6.5 /CUMM) 5.7 Absolute Lymphocytes (1.2 - 3.4 /CUMM) 0.8 L Absolute Monocytes (0.10 - 0.60 /CUMM) 0.5 Absolute Eosinophils (0.0 - 0.7 /CUMM) 0 Absolute Basophils (0.0 - 0.2 /CUMM) 0 PUBS MCHC (33.0 - 37.0 G/DL) 33.2 Miscellaneous Phlebotomy Draw Site RIGHT RADIAL 08/29 08/29 0225 0015 Chemistry Troponin I (< 0.11 ng/ml) < 0.01 Toxicology Urine Opiates Screen (>2000 NG/ML) 1805.00 Methadone Screen (>300 NG/ML) > 735 H Barbiturate Screen (>200 NG/ML) < 60 Ur Phencyclidine Scrn (>25 NG/ML) < 6.00 Amphetamines Screen (>1000 NG/ML) < 100 U Benzodiazepines Scrn (>200 NG/ML) < 85 Urine Cocaine Screen (>300 NG/ML) < 50 Urine Cannabis Screen (>50 NG/ML) < 5.00 Urines Urine Color (YEL,AMB,STR) YEL Urine Clarity (CLEAR) CLEAR Urine pH (5.0 - 8.0) 6.0 Ur Specific [place] (1.001 - 1.035) 1.010 Urine Protein (NEG,<30 MG/DL) NEG Urine Ketones (NEG) NEG Urine Nitrite (NEG) NEG Urine Bilirubin (NEG) NEG Urine Urobilinogen (0.1 - 1.0 EU/dl) 0.2 Ur Leukocyte Esterase (NEG) NEG Ur Microscopic EXAM NOT REQUIRED Urine Hemoglobin (NEG) NEG Urine Glucose (N MG/DL) >=1000 H 08/28 08/28 1550 1544 Blood Gas pH (7.35 - 7.45 PH) 7.36 pCO2 (35 - 45 TORR) 48 H pO2 (80 - 100 TORR) 73 L HCO3 (21 - 28 MEQ/L) 27 ABG O2 Sat (Measured) (>96.0 %) 91.0 L P-50 (Temp Corrected) N Carboxyhemoglobin (1.5 - 5.0 %) 2.5 O2 Concentration % 4L Temperature (97.0 - 100.0 FARH) 98.8 O2 Delivery Method NC Chemistry Troponin I Cancelled Coagulation D-Dimer Cancelled Miscellaneous Phlebotomy Draw Site RIGHT RADIAL 08/28 08/28 1529 1528 Chemistry Sodium (137 - 145 mmol/L) 140 Potassium (3.5 - 5.1 mmol/L) 4.0 Chloride (98 - 107 mmol/L) 97 L Carbon Dioxide (22 - 30 mmol/L) 33 H Anion Gap (5 - 16) 9 BUN (7 - 17 mg/dL) 7 Creatinine (0.5 - 1.0 mg/dL) 0.5 Estimated GFR (>60 ml/min) > 60 BUN/Creatinine Ratio (7 - 25 %) 14.0 Glucose (65 - 99 mg/dL) 36 *L Calcium (8.4 - 10.2 mg/dL) 9.0 Total Bilirubin (0.2 - 1.3 mg/dL) 0.4 AST (14 - 36 U/L) 56 H ALT (9 - 52 U/L) 103 H Alkaline Phosphatase (<127 U/L) 83 Troponin I (< 0.11 ng/ml) < 0.01 Hlo-[id number]-Umgkvummxzl Pept (<125 pg/mL) 653 H Total Protein (6.3 - 8.2 g/dL) 6.6 Albumin (3.5 - 5.0 g/dL) 3.8 Globulin (1.9 - 4.2 gm/dL) 2.8 Albumin/Globulin Ratio (1.1 - 2.2 %) 1.4 TSH (0.270 - 4.200 uIU/mL) 1.410 Free T4 (0.64 - 1.79 ng/dL) 1.16 Coagulation D-Dimer (70 - 232 ng/ml) 390 H Hematology CBC w Diff NO MAN DIFF REQ WBC (4.8 - 10.8 /CUMM) 10.7 RBC (4.20 - 5.40 /CUMM) 4.30 Hgb (12.0 - 16.0 G/DL) 12.3 Hct (37 - 47 %) 37.2 MCV (81.0 - 99.0 FL) 86.6 MCH (27.0 - 31.0 PG) 28.6 RDW (11.5 - 14.5 %) 16.4 H Plt Count (130 - 400 /CUMM) 251 MPV (7.4 - 10.4 FL) 8.0 Gran % (42.2 - 75.2 %) 88.6 H Lymphocytes % (20.5 - 51.1 %) 6.5 L Monocytes % (1.7 - 9.3 %) 4.0 Eosinophils % (0 - 5 %) 0.8 Basophils % (0.0 - 2.0 %) 0.1 Absolute Granulocytes (1.4 - 6.5 /CUMM) 9.5 H Absolute Lymphocytes (1.2 - 3.4 /CUMM) 0.7 L Absolute Monocytes (0.10 - 0.60 /CUMM) 0.4 Absolute Eosinophils (0.0 - 0.7 /CUMM) 0.1 Absolute Basophils (0.0 - 0.2 /CUMM) 0 PUBS MCHC (33.0 - 37.0 G/DL) 33.0 Assessment/Plan Assessment/Plan 56 year old female with a PMH significant for HTN, type 2 DM, aortic stenosis s/ p valve replacement, COPD, ? NISHANT, chronic back pain on methadone, and chronic tobacco use, presented with worsening exertional dyspnea, producitve cough of yellow sputum over the past 2 weeks, and skins lesions along with ? cellulitis of both LE. Currently she is on solumedrol 40 mg iv every 8 hours and she is covered by Azithromycin. Plan: 1. continue Levemir 12 units twice a day; 2. adjust Novolog coverage before meals-- detail see the inpatient DM order; 3. add Novolog coverage at bedtime-- detail see the inpatient DM order; 4. recommend culture of skin lesions and consider antibiotic coverage for ? skin lesions. 5. monitor FSGs; will follow. Inpatient Diabetes Orders Before Each Meal: Bolus Insulin: Novolog < 80 mg/dl: no coverage 80-100 mg/dl: 4 units 101-120 mg/dl: 4 units 121-150 mg/dl: 4 units 151-200 mg/dl: 6 units 201-250 mg/dl: 8 units 251-300 mg/dl: 10 units 301-350 mg/dl: 12 units 351-400 mg/dl: 14 units > 400 mg/dl: 16 units Bedtime: Bolus Insulin: Novolog < 80 mg/dl: no coverage 80-100 mg/dl: no coverage 101-120 mg/dl: no coverage 121-150 mg/dl: no covearge 151-200 mg/dl: no coverage 201-250 mg/dl: 2 units 251-300 mg/dl: 4 units 301-350 mg/dl: 6 units 351-400 mg/dl: 7 units > 400 mg/dl: 8 units Consult Acknowledgment - Thank you for your consult request.
[2016-08-29 14:24] VITALS: BP 150/70
--- NOTE | 2016-08-29 14:53 | ULTRASOUND REPORT ---
EXAMINATION: US TRIPLEX LOWER EXTREMITY, BILATERAL CLINICAL INFORMATION: Bilateral lower extremity edema and swelling. COMPARISON: None. TECHNIQUE: Color-flow triplex imaging with spectral analysis and compression Doppler were performed on the bilateral lower extremities. FINDINGS: Respiratory variation, normal compression and augmented flow are noted throughout the bilateral lower extremities. The visualized common femoral vein, proximal greater saphenous vein, femoral vein, profunda femoral vein, popliteal vein and visualized mid calf venous segments show no evidence of deep venous thrombosis. There is no George's cyst. IMPRESSION: Normal triplex scan without evidence of deep venous thrombosis involving the bilateral lower extremities.
--- NOTE | 2016-08-29 18:17 | NUR ---
PT REQUESTING ALL 4 SIDE RAILS UP WHILE PATIENT IS SLEEPING AND HAS THEM DOWN WHEN PATIENT IS AWAKE. WILL CONTINUE TO MONITOR.
[2016-08-29 22:00] VITALS: BP 130/70
[2016-08-29 22:06] VITALS: BP 130/70
[2016-08-30 02:00] VITALS: BP 130/76
[2016-08-30 06:00] VITALS: BP 140/74
[2016-08-30 07:05] VITALS: BP 140/74
--- NOTE | 2016-08-30 08:32 | PN- Housestaff ---
[facility] 08/30/16 0831: Subjective Follow-up For: COPD exacerbation Elevated d-dimer Bilateral lower extremity edema Increase LFT Subjective: Afebrile, hemodynamically stable, has racing will on 3 L of oxygen, he would overnight events reported. Patient looks lethargic and sleepy. She denies any current pain. Review of Systems Constitutional: Reports: see HPI. Objective Last 24 Hrs of Vital Signs/I&O Vital Signs Date Time Temp Pulse Resp B/P Pulse O2 O2 Flow FiO2 Ox Delivery Rate 08/30 1401 98.7 76 20 142/80 96 Nasal 3.0L Cannula 08/30 1205 95 08/30 1054 84 99 08/30 0935 75 150/78 08/30 0845 92 Nasal 2.0L Cannula 08/30 0800 Nasal 3.0L Cannula 08/30 0705 97.9 78 20 140/74 97 CPAP 08/30 0600 97.9 78 20 140/74 08/30 0543 82 99 08/30 0337 70 98 08/30 0200 98.6 89 24 130/76 08/30 0058 71 98 08/30 0000 98 Nasal 2.0L Cannula 08/29 2217 90 98 08/29 2206 98.5 94 24 130/70 97 Nasal 2.0L Cannula 08/29 2200 98.5 90 24 130/70 08/29 1558 96 Nasal 3.0L Cannula Intake & Output 08/30 1600 08/30 0800 08/30 0000 Intake Total 260 Output Total 925 071 5718 Balance -600 -390 -1550 Intake, IV 20 Intake, Oral 240 Output, Urine 085 440 3238 Physical Exam General Appearance: Alert, Oriented X3, Cooperative, No Acute Distress Skin: rash over the chest and lower extremity bilaterally below-knee Cardiovascular: Regular Rate, Normal S1, Normal S2, No Murmurs Lungs: decrease air entry over both lungs with B/L wheezing Abdomen: Soft, No Tenderness Neurological: Normal Speech Extremities: No Clubbing, No Cyanosis, No Edema, bilateral lower extremity erythema below the knee level Current Medications: Current Medications Sig/Zeyad Start time Last Medication Dose Route Stop Time Status Admin Albuterol Sulfate 3 ML EVERY 4 HRS/AWAKE 08/29 0930 AC 08/30 INH 1149 Azithromycin 500 MG DAILY 08/28 2199 AC 08/30 Sodium Chloride 250 ML IV 0942 Budesonide/ 2 PUF BID 08/28 2200 AC 08/30 Formoterol Fumarate INH 0944 Carisoprodol 350 MG TID 08/28 2200 AC 08/30 PO 0938 Fluticasone 2 SPRAY DAILY 08/29 1552 AC 08/29 Propionate JOSELO 1647 Furosemide 160 MG DAILY 08/29 1000 AC 08/30 PO 0936 Furosemide 80 MG QPM 08/28 2200 AC 08/28 PO 2356 Heparin Sodium 5,000 UNIT Q8 08/28 2200 AC 08/30 (Porcine) SC 0526 Insulin Aspart 0 TIDAC/HS 08/29 1700 AC 08/30 SC 1236 Insulin Detemir 18 UNITS BID 08/30 2200 AC SC Insulin Detemir 12 UNITS BID 08/28 2200 DC 08/30 SC 0940 Lisinopril 20 MG DAILY 08/29 1000 AC 08/30 PO 0935 Methadone HCl 40 MG DAILY 08/29 1000 AC 08/30 PO 0939 Methadone HCl 30 MG AT BEDTIME 08/28 2230 AC 08/29 PO 2147 Methylprednisolone 40 MG Q12 08/300 AC IV Methylprednisolone 40 MG Q8 08/29 0600 DC 08/30 IV 0527 Morphine Sulfate 15 MG TID 08/28 2200 AC 08/30 PO 0938 Nicotine 21 MG DAILY 08/29 1000 AC 08/30 TOP 0551 Pregabalin 300 MG BID 08/29 1000 AC 08/30 PO 0938 Tiotropium [place] 1 PUF DAILY 08/29 1000 AC 08/30 INH 0943 Trazodone HCl 50 MG QPM 08/28 2200 AC 08/29 PO 2146 Last 24 Hrs of Lab/Romain Results Last 24 Hrs of Labs/Mics: Laboratory Tests 08/30/16 0850: Anion Gap 12, Estimated GFR > 60, BUN/Creatinine Ratio 20.0, CBC w Diff NO MAN DIFF REQ, RBC 4.24, MCV 87.2, MCH 28.5, RDW 16.9 H, MPV 8.6, Gran % 88.1 H, Lymphocytes % 7.3 L, Monocytes % 4.5, Eosinophils % 0.1, Basophils % 0 L, Absolute Granulocytes 8.2 H, Absolute Lymphocytes 0.7 L, Absolute Monocytes 0.4, Absolute Eosinophils 0, Absolute Basophils 0, PUBS MCHC 32.7 L Assessment/Plan Assessment: This is a 56-year-old female past medical history significant for hypertension, diabetes, aortic stenosis status post valve replacement, COPD not on home OT, NISHANT, chronic back pain on methadone, and a 2 pack per day habit for "forever." She comes in for chief complaint of exertional dyspnea or productive cough. Patient states her symptoms worsened acutely over the past 2 weeks however they' ve been present since last December. She has been on chronic prednisone therapy for the past 2 months. She is admitted to the general medicine floor for continued evaluation of bilateral lower extremity erythema and COPD exacerbation. Plan 1. Acute hypoxic resp failure: Patient was found to be desaturating to the 70s and 80s at PCP office. Was sent to ED. She has been saturating well on 2 L O2. She does not use any oxygen at home. She is on chronic prednisone therapy for the past 2 months per PCP. She has a 2 pack per day habit of smoking. She is somnolent and lethargic this AM. * Follow-up ABG * Appreciate pulmonary consult. * BiPAP trial for night, see assistant operator note for settings * We will decrease steroids to Solu-Medrol 40 mg every 12 * Pulmonology recommended outpatient sleep study. * She will be instructed to follow-up outpatient CT scan for groundglass opacity seen on CAT scan 2. Diabetes: Patient given an episode of hypoglycemia. She states that she took overdose of insulin but different doctor's appointment and did not have time to eat. To have hypoglycemia down to 36 in ED upon admission. Her usual home regimen involves 24 units of Levemir twice a day and 15 units of short- acting prior to breakfast, followed by 15 units prior to lunch and 30 units prior to dinner. * Endocrinology consult appreciated * Increased Levemir to 18 units twice a day * Her sliding scale was modified as per endocrinology (higher ) see order. 3. Elevated d-dimer: Patient given a d-dimer 390, given shortness of breath there was suspicion for possibility of PE. CTA was negative. * NTD for now 4. Bilateral lower extremity erythema: Patient came in with bilateral lower extremity edema THAT she states acutely worsened over the past 4 days. There are some ground glass opacities present bilaterally. Need to rule out DVT vs cellulitis. So lower extremity venous Doppler was done and was negative for DVTs * She is on azithromycin 500 mg IV daily full code chemical dvt ppx diabetic diet Problem List: 1. COPD (chronic obstructive pulmonary disease) Pain Ratin Pain Location: na Pain Goal: Remain pain free Pain Plan: See A&P Tomorrow's Labs & Rationales: CBC for WBC MELISSA COREAS 08/30/16 1012: Attending MD Review Statement Attending Statement Attending MD Statement: examined this patient, discuss w/resident/PA/METAL WINDOW SCREEN ASSEMBLER, agreed w/resident/PA/METAL WINDOW SCREEN ASSEMBLER, discussed with family, reviewed EMR data (avail), discussed with nursing, discussed with case mgmt, reviewed images Attending Assessment/Plan: "56 yo morbidly obese F, smoker, with h/o T2DM, HTN, asthma/?COPD, chronic back pain/lumbar radiculopathy on methadone (previous neurostimulator implant), chronic LE edema, 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 Chills+, chest discomfort+. She reports that since Dec 2015, her symptoms have gradually worsened. She has been treated with Azithro and most recently placed on Levofloxacin, and has been on prednisone (2 tabs now up to 4 tabs QD) for past 1-2 months, without much relief. She has never been diagnosed with COPD, sleep apnea and has not seen a [facility]." ASSESSMENT AND PLAN 1. Acute respiratory failure, chronic compensated respiratory acidosis/ hypercarbia in the setting of COPD exacerbation. No underlying pneumonia or CHF. She may have an undiagnosed component of NISHANT or OHS. Pulmonary on board, c/w iv Steroids, taper steroids, abx. trial of bipap at night as per pulm. obtain ECHO. Patient will require f/u o/p CT chest for groundglass opacity. 2. Recurrent hypoglycemia in this patient with T2DM on insulin. Diabetes education RISS and titrate insulin as needed. Endocrinology consulted, f/u endo recommendations. 3. B/l LE edema appears chronic with stasis dermatitis. refused USG b/l legs 4. Chronic back pain on methadone. Prescribed by Dr. Laws and received from [facility]. resume methadone. 5. Transaminitis f/u LFTs. DVT ppx Hep SC. Full code.
[2016-08-30 09:32] LABS: ABSOLUTE BASOPHIL COUNT 0 /CUMM (0.0-0.2); ABSOLUTE EOSINOPHIL COUNT 0 /CUMM (0.0-0.7); ABSOLUTE GRANULOCYTE CT 8.2 /CUMM (1.4-6.5); ABSOLUTE LYMPH COUNT 0.7 /CUMM (1.2-3.4); ABSOLUTE MONOCYTE COUNT 0.4 /CUMM (0.10-0.60); BASOPHIL % 0 % (0.0-2.0); EOSINOPHIL % 0.1 % (0-5); MEAN CORPUSCULAR HGB 28.5 PG (27.0-31.0); MEAN CORPUSCULAR HGB CONC 32.7 G/DL (33.0-37.0); MEAN CORPUSCULAR VOLUME 87.2 FL (81.0-99.0); MEAN PLATELET VOLUME 8.6 FL (7.4-10.4); PLATELET COUNT 287 /CUMM (130-400); RBC DISTRIBUTION WIDTH 16.9 % (11.5-14.5); RED BLOOD CELL CT 4.24 /CUMM (4.20-5.40); WHITE BLOOD CELL COUNT 9.3 /CUMM (4.8-10.8)
--- NOTE | 2016-08-30 09:32 | PN- Diabetes ---
Assessment/Plan Assessment: This 56-year-old woman has diabetes mellitus type 2 associated with morbid obesity. She came in with exacerbation of COPD and also has a rash with excoriated areas on her abdomen and chest. She has chronic edema of her legs with redness swelling and weeping. The patient's insulin regimen was adjusted by Dr. Anne yesterday. Fingerstick blood sugars remain high. Her fingerstick blood sugar before breakfast today is 322. Yesterday later in the day even after adjustment her before dinner blood sugar was 271 and bedtime 332. The patient is on Solu-Medrol 40 mg every 8 hours which is aggravating her sugar control. Plan: Suggest increase the patient's Levemir to 18 units twice a day. In addition we need to adjust her sliding scale NovoLog before meals. Sliding-scale NovoLog before meals should be 80-150 give 8 units Humalog, 151-200 give 10 units NovoLog, 201-250 give 12 units NovoLog, 251-300 give 14 units NovoLog, 301-350 give 16 units NovoLog, 351-400 give 18 units NovoLog. Bedtime sliding-scale NovoLog should be less than 250 give no insulin, 251-300 give 3 units NovoLog, 301-350 give 4 units NovoLog, 351-400 give 5 units NovoLog. Subjective Subjective: Concerned about rash Review of Systems Constitutional: Denies: chills, fever. Cardiovascular: Denies: chest pain. Respiratory: Reports: cough, short of breath. Gastrointestinal: Denies: nausea, vomiting. Skin: Reports: rash. Objective Last 24 Hrs of Vital Signs/I&O Vital Signs Date Time Temp Pulse Resp B/P Pulse O2 O2 Flow FiO2 Ox Delivery Rate 08/30 0845 92 Nasal 2.0L Cannula 08/30 0705 97.9 78 20 140/74 97 CPAP 08/30 0600 97.9 78 20 140/74 08/30 0543 82 99 08/30 0337 70 98 08/30 0200 98.6 89 24 130/76 08/30 0058 71 98 08/30 0000 98 Nasal 2.0L Cannula 08/29 2217 90 98 08/29 2206 98.5 94 24 130/70 97 Nasal 2.0L Cannula 08/29 2200 98.5 90 24 130/70 08/29 1558 96 Nasal 3.0L Cannula 08/29 1424 98.2 77 20 150/70 92 08/29 1058 Nasal 3.0L Cannula 08/29 1025 80 142/76 Intake & Output 08/30 1600 08/30 0800 08/30 0000 Intake Total 260 Output Total 650 1550 Balance -390 -1550 Intake, IV 20 Intake, Oral 240 Output, Urine 650 1550 Vital Signs Date Time Temp Pulse Resp B/P Pulse O2 O2 Flow FiO2 Ox Delivery Rate 08/30 0845 92 Nasal 2.0L Cannula 08/30 0705 97.9 78 20 140/74 97 CPAP 08/30 0600 97.9 78 20 140/74 08/30 0543 82 99 08/30 0337 70 98 08/30 0200 98.6 89 24 130/76 08/30 0058 71 98 08/30 0000 98 Nasal 2.0L Cannula 08/29 2217 90 98 08/29 2206 98.5 94 24 130/70 97 Nasal 2.0L Cannula 08/29 2200 98.5 90 24 130/70 08/29 1558 96 Nasal 3.0L Cannula 08/29 1424 98.2 77 20 150/70 92 08/29 1058 Nasal 3.0L Cannula 08/29 1025 80 142/76 Intake & Output 08/30 1600 08/30 0800 08/30 0000 Intake Total 260 Output Total 650 1550 Balance -390 -1550 Intake, IV 20 Intake, Oral 240 Output, Urine 650 1550 Physical Exam General Appearance: alert, awake, anxious Head: normal appearance Neck: normal inspection Respiratory: normal breath sounds, no respiratory distress Cardiovascular: regular rate/rhythm Abdomen: normal bowel sounds, obese Extremities: pedal edema Skin: rash (redness of both lower legs and) Current Medications: Current Medications Sig/Zeyad Start time Last Medication Dose Route Stop Time Status Admin Albuterol Sulfate 3 ML EVERY 4 HRS/AWAKE 08/29 0930 AC 08/30 INH 0837 Azithromycin 500 MG DAILY 08/28 2199 AC 08/29 Sodium Chloride 250 ML IV 0044 Budesonide/ 2 PUF BID 08/28 2199 AC 08/29 Formoterol Fumarate INH 2148 Carisoprodol 350 MG TID 08/28 220 AC 08/29 PO 2146 Fluticasone 2 SPRAY DAILY 08/29 1552 AC 08/29 Propionate JOSELO 1647 Furosemide 160 MG DAILY 08/29 1000 AC 08/29 PO 1025 Furosemide 80 MG QPM 08/28 2200 AC 08/28 PO 2356 Heparin Sodium 5,000 UNIT Q8 08/28 2200 AC 08/30 (Porcine) SC 0526 Insulin Aspart 0 TIDAC/HS 08/29 1700 AC 08/30 SC 0803 Insulin Aspart 0 TIDAC 08/29 0800 DC 08/29 SC 1251 Insulin Detemir 12 UNITS BID 08/28 2200 AC 08/29 SC 2145 Lisinopril 20 MG DAILY 08/29 1000 AC 08/29 PO 1025 Methadone HCl 40 MG DAILY 08/29 1000 AC 08/29 PO 1029 Methadone HCl 30 MG AT BEDTIME 08/28 2230 AC 08/29 PO 2147 Methylprednisolone 40 MG Q8 08/29 0600 AC 08/30 IV 0527 Morphine Sulfate 15 MG TID 08/28 2200 AC 08/29 PO 2146 Nicotine 21 MG DAILY 08/29 1000 AC 08/30 TOP 0551 Pregabalin 300 MG BID 08/29 1000 AC 08/29 PO 2146 Tiotropium [place] 1 PUF DAILY 08/29 1000 AC 08/29 INH 1025 Trazodone HCl 50 MG QPM 08/28 2200 AC 08/29 PO 2146 Findings Pertinent Lab/Romain Results: Laboratory Tests 08/30 0850 Chemistry Sodium Pending Potassium Pending Chloride Pending Carbon Dioxide Pending Anion Gap Pending BUN Pending Creatinine Pending BUN/Creatinine Ratio Pending Hematology CBC w Diff Pending WBC Pending RBC Pending Hgb Pending Hct Pending MCV Pending MCH Pending RDW Pending Plt Count Pending MPV Pending Gran % Pending Lymphocytes % Pending Monocytes % Pending Eosinophils % Pending Basophils % Pending Absolute Granulocytes Pending Absolute Lymphocytes Pending Absolute Monocytes Pending Absolute Eosinophils Pending Absolute Basophils Pending PUBS MCHC Pending
--- NOTE | 2016-08-30 09:42 | PN- Pulmonary ---
Subjective HPI/Critical Care Issues: Patient is awake alert shortness breath is improved she is diuresed 4 L Objective Current Medications: Current Medications Sig/Zeyad Start time Last Medication Dose Route Stop Time Status Admin Albuterol Sulfate 3 ML EVERY 4 HRS/AWAKE 08/29 0930 AC 08/30 INH 0837 Azithromycin 500 MG DAILY 08/28 2200 AC 08/29 Sodium Chloride 250 ML IV 0044 Budesonide/ 2 PUF BID 08/28 2200 AC 08/29 Formoterol Fumarate INH 2148 Carisoprodol 350 MG TID 08/28 2200 AC 08/29 PO 2146 Fluticasone 2 SPRAY DAILY 08/29 1552 AC 08/29 Propionate JOSELO 1647 Furosemide 160 MG DAILY 08/29 1000 AC 08/29 PO 1025 Furosemide 80 MG QPM 08/28 2200 AC 08/28 PO 2356 Heparin Sodium 5,000 UNIT Q8 08/28 2200 AC 08/30 (Porcine) SC 0526 Insulin Aspart 0 TIDAC/HS 08/29 1700 AC 08/30 SC 0803 Insulin Aspart 0 TIDAC 08/29 0800 DC 08/29 SC 1251 Insulin Detemir 12 UNITS BID 08/28 2200 AC 08/29 SC 2145 Lisinopril 20 MG DAILY 08/29 1000 AC 08/29 PO 1025 Methadone HCl 40 MG DAILY 08/29 1000 AC 08/29 PO 1029 Methadone HCl 30 MG AT BEDTIME 08/28 2230 AC 08/29 PO 2147 Methylprednisolone 40 MG Q8 08/29 0600 AC 08/30 IV 0527 Morphine Sulfate 15 MG TID 08/28 2200 AC 08/29 PO 2146 Nicotine 21 MG DAILY 08/29 1000 AC 08/30 TOP 0551 Pregabalin 300 MG BID 08/29 1000 AC 08/29 PO 2146 Tiotropium [place] 1 PUF DAILY 08/29 1000 AC 08/29 INH 1025 Trazodone HCl 50 MG QPM 08/28 2200 AC 08/29 PO 2146 Vital Signs & I&O Last 24 Hrs of Vitals and I&O: Vital Signs Date Time Temp Pulse Resp B/P Pulse O2 O2 Flow FiO2 Ox Delivery Rate 08/30 0845 92 Nasal 2.0L Cannula 08/30 0705 97.9 78 20 140/74 97 CPAP 08/30 0600 97.9 78 20 140/74 08/30 0543 82 99 08/30 0337 70 98 08/30 0200 98.6 89 24 130/76 08/30 0058 71 98 08/30 0000 98 Nasal 2.0L Cannula 08/29 2217 90 98 08/29 2206 98.5 94 24 130/70 97 Nasal 2.0L Cannula 08/29 2200 98.5 90 24 130/70 08/29 1558 96 Nasal 3.0L Cannula 08/29 1424 98.2 77 20 150/70 92 08/29 1058 Nasal 3.0L Cannula 08/29 1025 80 142/76 Intake & Output 08/30 1600 08/30 0800 08/30 0000 Intake Total 260 Output Total 650 1550 Balance -390 -1550 Intake, IV 20 Intake, Oral 240 Output, Urine 650 1550 Oxygen saturation 2 L 92% exam for chest shows diminished breath sounds are no wheezes cardiac exam shows regular S1 and S2 she has chronic brawny bilateral edema Impression/Plan Impression/Plan Impression/Plan: 36-year-old morbidly obese woman on high-dose opiates admitted with exacerbation of COPD she's been counseled regarding the need for smoking cessation. She likely has evidence of chronic hypercarbia based on elevated bicarbonate. There is high suspicion for pulmonary hypertension and venous insufficiency with chronic edema and erythema. Respiratory status is improved with diuresis Recommendations: Trial of BiPAP especially at night with settings of ST 28 IPAP 18 EPAP 6. Decrease steroids to every 12 hours Minimize narcotics with evidence of hypercarbia. Patient should have an outpatient sleep study. Patient is been counseled regarding the need for smoking cessation. Patient will require follow -up outpatient CT scan for groundglass opacity seen on CAT scan. DVT prophylaxis
[2016-08-30 11:02] LABS: GRANULOCYTE % 88.1 % (42.2-75.2)
[2016-08-30 14:01] VITALS: BP 142/80
--- NOTE | 2016-08-30 15:37 | NUR ---
PT IS ANXIOUS AT TIMES. PT REFUSES BED ALARM AND RED SOCKS. PT HAS A RASH SCABBED AREA ON HER ABDOMEN/CHEST. INFORMED MD. MD STATES SHE DOES NOT NEED TO BE IN ISOLATION. FOLLOW STANDARD/UNIVERSAL PRECAUTIONS.
--- NOTE | 2016-08-30 17:30 | NUR ---
PT PREFERS FOR ALL 4 SIDE RAILS TO BE UP WHEN SHE IS SLEEPING BECAUSE IT MAKES HER FEEL SAFER. PT OOB TO BSC FREQUENTLY AND SITTING ON EDGE OF BED FREQUENTLY. MANAGER PUBLIC AWARE THAT 4 SIDE RAILS NOT UP AT ALL TIMES DUE TO PTS PREFERENCE. RESTRAINT ORDERED COMPLETED. WILL REASSESS AND CONSULT MD AT BEDTIME IF PT PREFERS 4 SIDE RAILS UP AGAIN. SAFETY PRECAUTIONS REMAIN IN PLACE. WILL CONTINUE TO MONITOR.
[2016-08-30 21:40] VITALS: BP 140/80
[2016-08-31 06:00] VITALS: BP 140/80
[2016-08-31 06:51] VITALS: BP 140/80
--- NOTE | 2016-08-31 08:12 | PN- Housestaff ---
[facility] 08/31/16 0812: Subjective Follow-up For: COPD exacerbation Elevated d-dimer Bilateral lower extremity edema Increase LFT Subjective: Afebrile, hemodynamically stable, saturating well on 2 L of oxygen, no overnight events reported. she reported improvement on her shortness breath. She denies any current pain. Review of Systems Constitutional: Reports: no symptoms. Objective Last 24 Hrs of Vital Signs/I&O Vital Signs Date Time Temp Pulse Resp B/P Pulse O2 O2 Flow FiO2 Ox Delivery Rate 08/31 0955 80 120/80 08/31 0853 93 Nasal 2.0L Cannula 08/31 0800 92 Nasal 2.0L Cannula 08/31 0651 98.2 73 20 140/80 100 Nasal Cannula 08/31 0600 98.2 73 20 140/80 08/31 0354 88 95 08/31 0038 82 96 08/31 0000 96 BIPAP 30% 08/30 2310 88 97 08/30 2140 98.1 81 20 140/80 96 08/30 1630 96 08/30 1600 Nasal 2.0L Cannula 08/30 1555 89 97 08/30 1539 97 Nasal 2.0L Cannula 08/30 1401 98.7 76 20 142/80 96 Nasal 3.0L Cannula Intake & Output 08/31 1600 08/31 0800 08/31 0000 Intake Total 600 600 Output Total 800 2400 501 Balance -800 -1800 99 Intake, IV 0 Intake, Oral 600 600 Number 0 Bowel Movements Output, Stool 1 Output, Urine 800 2400 500 Physical Exam General Appearance: Alert, Oriented X3, Cooperative, No Acute Distress HEENT: Atraumatic, PERRLA, EOMI, Mucous Membr. moist/pink Cardiovascular: Regular Rate, Normal S1, Normal S2, No Murmurs Lungs: wheezing all over both lungs Abdomen: Normal Bowel Sounds, Soft, No Tenderness Neurological: Normal Speech Extremities: No Clubbing, No Cyanosis, No Edema, erythema over right lower extremity below the knee level Current Medications: Current Medications Sig/Zeyad Start time Last Medication Dose Route Stop Time Status Admin Albuterol Sulfate 3 ML EVERY 4 HRS/AWAKE 08/29 0930 AC 08/31 INH 1142 Azithromycin 500 MG DAILY 08/28 2199 AC 08/31 Sodium Chloride 250 ML IV 0957 Benzonatate 100 MG Q8P PRN 08/31 0645 AC 08/31 PO 0955 Budesonide/ 2 PUF BID 08/28 2200 AC 08/31 Formoterol Fumarate INH 0958 Carisoprodol 350 MG TID 08/28 2200 AC 08/31 PO 0955 Fluticasone 2 SPRAY DAILY 08/29 1552 AC 08/31 Propionate JOSELO 0954 Furosemide 80 MG 1800 08/31 1800 AC PO Furosemide 160 MG 0700 08/31 0700 AC 08/31 PO 0626 Furosemide 160 MG DAILY 08/29 1000 DC 08/30 PO 0936 Furosemide 80 MG QPM 08/28 2200 DC 08/28 PO 2356 Heparin Sodium 5,000 UNIT Q8 08/28 2200 AC 08/31 (Porcine) SC 0626 Insulin Aspart 0 TIDAC/HS 08/29 1700 AC 08/31 SC 1220 Insulin Detemir 18 UNITS BID 08/30 2200 AC 08/31 SC 0954 Lisinopril 20 MG DAILY 08/29 1000 AC 08/31 PO 0955 Methadone HCl 40 MG DAILY 08/29 1000 AC 08/31 PO 0955 Methadone HCl 30 MG AT BEDTIME 08/28 2230 AC 08/30 PO 2114 Methylprednisolone 40 MG Q12 08/30 2200 DC 08/30 IV 2114 Morphine Sulfate 15 MG TID 08/28 2200 AC 08/31 PO 0955 Nicotine 21 MG DAILY 08/29 1000 AC 08/31 TOP 0745 Prednisone 60 MG DAILY 08/31 1000 AC 08/31 PO 1031 Pregabalin 300 MG BID 08/29 1000 AC 08/31 PO 0955 Tiotropium [place] 1 PUF DAILY 08/29 1000 AC 08/31 INH 0955 Trazodone HCl 50 MG QPM 08/28 2200 AC 08/30 PO 2120 Last 24 Hrs of Lab/Romain Results Last 24 Hrs of Labs/Mics: Laboratory Tests 08/31/16 1219: Sodium Pending, Potassium Pending, Chloride Pending, Carbon Dioxide Pending, Anion Gap Pending, BUN Pending, Creatinine Pending, BUN/Creatinine Ratio Pending , Glucose Pending Assessment/Plan Assessment: This is a 56-year-old female past medical history significant for hypertension, diabetes, aortic stenosis status post valve replacement, COPD not on home OT, NISHANT, chronic back pain on methadone, and a 2 pack per day habit for "forever." She comes in for chief complaint of exertional dyspnea or productive cough. Patient states her symptoms worsened acutely over the past 2 weeks however they' ve been present since last December. She has been on chronic prednisone therapy for the past 2 months. She is admitted to the general medicine floor for continued evaluation of bilateral lower extremity erythema and COPD exacerbation. Plan 1. Acute hypoxic resp failure: Patient was found to be desaturating to the 70s and 80s at PCP office. Was sent to ED. She has been saturating well on 2 L O2. She does not use any oxygen at home. She is on chronic prednisone therapy for the past 2 months per PCP. She has a 2 pack per day habit of smoking. * Appreciate pulmonary consult. * BiPAP trial for night, see weight caller note for settings * We'll switch Solu-Medrol 40 mg every 12 to prednisone 60 mg daily * We will DC azithromycin 500 mg IV daily after the third dose today * Pulmonology recommended outpatient sleep study. * She will be instructed to follow-up outpatient CT scan for groundglass opacity seen on CAT scan 2. Diabetes: Patient given an episode of hypoglycemia. She states that she took overdose of insulin but different doctor's appointment and did not have time to eat. To have hypoglycemia down to 36 in ED upon admission. Her usual home regimen involves 24 units of Levemir twice a day and 15 units of short- acting prior to breakfast, followed by 15 units prior to lunch and 30 units prior to dinner. * Endocrinology consult appreciated * Continue Levemir to 18 units twice a day * Her sliding scale was modified yesterday as per endocrinology (higher ) see order. * H and started steroid taper today her blood glucose level 3. Elevated d-dimer: Patient given a d-dimer 390, given shortness of breath there was suspicion for possibility of PE. CTA was negative. * NTD for now 4. Bilateral lower extremity erythema: Patient came in with bilateral lower extremity edema THAT she states acutely worsened over the past 4 days. There are some ground glass opacities present bilaterally. Need to rule out DVT vs cellulitis. So lower extremity venous Doppler was done and was negative for DVTs * NTD for now full code chemical dvt ppx diabetic diet Problem List: 1. COPD (chronic obstructive pulmonary disease) Pain Ratin Pain Location: na Pain Goal: Remain pain free Pain Plan: See A&P Tomorrow's Labs & Rationales: MELISSA Villa 08/31/16 0846: Attending MD Review Statement Attending Statement Attending MD Statement: examined this patient, discuss w/resident/PA/GERIATRIC NURSE PRACTITIONER, agreed w/resident/PA/GERIATRIC NURSE PRACTITIONER, discussed with family, reviewed EMR data (avail), discussed with nursing, discussed with case mgmt, reviewed images, amended to note Attending Assessment/Plan: "56 yo morbidly obese F, smoker, with h/o T2DM, HTN, asthma/?COPD, chronic back pain/lumbar radiculopathy on methadone (previous neurostimulator implant), chronic LE edema, 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 Chills+, chest discomfort+. She reports that since Dec 2015, her symptoms have gradually worsened. She has been treated with Azithro and most recently placed on Levofloxacin, and has been on prednisone (2 tabs now up to 4 tabs QD) for past 1-2 months, without much relief. She has never been diagnosed with COPD, sleep apnea and has not seen a Wind Field Manager." ASSESSMENT AND PLAN 1. Acute respiratory failure, chronic compensated respiratory acidosis/ hypercarbia in the setting of COPD exacerbation. No underlying pneumonia or CHF. She may have an undiagnosed component of NISHANT or OHS. Pulmonary on board, c/w taper steroids, abx. trial of bipap at night as per pulm. recent ECHO reviewed. Patient will require f/u o/p CT chest for groundglass opacity. 2. DM uncontrolled hyperglycemia with Recurrent hypoglycemia in this patient with T2DM on insulin. Diabetes education, RISS and titrate insulin as needed. Endocrinology consulted, f/u endo recommendations. 3. B/l LE edema appears chronic with stasis dermatitis. refused USG b/l legs 4. Chronic back pain on methadone. Prescribed by Dr. Laws and received from [facility]. resumed methadone. 5. Transaminitis f/u LFTs. DVT ppx Hep SC. Full code.
--- NOTE | 2016-08-31 10:15 | PN- Pulmonary ---
Subjective HPI/Critical Care Issues: Patient is a short of breath she is awake alert Objective Current Medications: Current Medications Sig/Zeyad Start time Last Medication Dose Route Stop Time Status Admin Albuterol Sulfate 3 ML EVERY 4 HRS/AWAKE 08/29 0930 AC 08/31 INH 0852 Azithromycin 500 MG DAILY 08/28 2200 AC 08/31 Sodium Chloride 250 ML IV 0957 Benzonatate 100 MG Q8P PRN 08/31 0645 AC 08/31 PO 0955 Budesonide/ 2 PUF BID 08/28 2200 AC 08/31 Formoterol Fumarate INH 0958 Carisoprodol 350 MG TID 08/28 2200 AC 08/31 PO 0955 Fluticasone 2 SPRAY DAILY 08/29 1552 AC 08/31 Propionate JOSELO 0954 Furosemide 80 MG 1800 08/31 1800 AC PO Furosemide 160 MG 0700 08/31 0700 AC 08/31 PO 0626 Furosemide 160 MG DAILY 08/29 1000 DC 08/30 PO 0936 Furosemide 80 MG QPM 08/28 2200 DC 08/28 PO 2356 Heparin Sodium 5,000 UNIT Q8 08/28 2200 AC 08/31 (Porcine) SC 0626 Insulin Aspart 0 TIDAC/HS 08/29 1700 AC 08/31 SC 0747 Insulin Detemir 18 UNITS BID 08/30 2200 AC 08/31 SC 0954 Insulin Detemir 12 UNITS BID 08/28 2200 DC 08/30 SC 0940 Lisinopril 20 MG DAILY 08/29 1000 AC 08/31 PO 0955 Methadone HCl 40 MG DAILY 08/29 1000 AC 08/31 PO 0955 Methadone HCl 30 MG AT BEDTIME 08/28 2230 AC 08/30 PO 2114 Methylprednisolone 40 MG Q12 08/30 2200 DC 08/30 IV 2114 Methylprednisolone 40 MG Q8 08/29 0600 DC 08/30 IV 0527 Morphine Sulfate 15 MG TID 08/28 2200 AC 08/31 PO 0955 Nicotine 21 MG DAILY 08/29 1000 AC 08/31 TOP 0745 Prednisone 60 MG DAILY 08/31 1000 AC PO Pregabalin 300 MG BID 08/29 1000 AC 08/31 PO 0955 Tiotropium [place] 1 PUF DAILY 08/29 1000 AC 08/31 INH 0955 Trazodone HCl 50 MG QPM 08/28 2200 AC 08/30 PO 2120 Vital Signs & I&O Last 24 Hrs of Vitals and I&O: Vital Signs Date Time Temp Pulse Resp B/P Pulse O2 O2 Flow FiO2 Ox Delivery Rate 08/31 0955 80 120/80 08/31 0853 93 Nasal 2.0L Cannula 08/31 0651 98.2 73 20 140/80 100 Nasal Cannula 08/31 0600 98.2 73 20 140/80 08/31 0354 88 95 08/31 0038 82 96 08/31 0000 96 BIPAP 30% 08/30 2310 88 97 08/30 2140 98.1 81 20 140/80 96 08/30 1630 96 08/30 1600 Nasal 2.0L Cannula 08/30 1555 89 97 08/30 1539 97 Nasal 2.0L Cannula 08/30 1401 98.7 76 20 142/80 96 Nasal 3.0L Cannula 08/30 1205 95 08/30 1054 84 99 Intake & Output 08/31 1600 08/31 0800 08/31 0000 Intake Total 600 600 Output Total 1600 501 Balance -1000 99 Intake, IV 0 Intake, Oral 600 600 Number 0 Bowel Movements Output, Stool 1 Output, Urine 1600 500 Oxygen saturation on 2 L is 93% exam for chest shows diminished breath sounds there are no wheezes cardiac exam shows regular S1 and S2 lower extremities continue to have Impression/Plan Impression/Plan Impression/Plan: 36-year-old morbidly obese woman on high-dose opiates admitted with exacerbation of COPD she's been counseled regarding the need for smoking cessation. She likely has evidence of chronic hypercarbia based on elevated bicarbonate. There is high suspicion for pulmonary hypertension and venous insufficiency with chronic edema and erythema. Respiratory status is improved with diuresis supplemental oxygen Recommendations: Begin prednisone taper continue nocturnal BiPAP Taper FiO2 his saturations allow patient may require oxygen at discharge and will need outpatient sleep study
--- NOTE | 2016-08-31 10:47 | PN- Diabetes ---
Assessment/Plan Assessment: This 56-year-old woman has diabetes mellitus type 2 associated with morbid obesity. She came in with exacerbation of COPD and also has a rash with excoriated areas on her abdomen and chest. She has chronic edema of her legs with redness swelling and weeping. On high-dose steroids as part of the treatment of her COPD. Yesterday the patient's blood sugars were high. They were 322 before breakfast, 338 before lunch, 300 before dinner, and 250 at bedtime. We had increased her Levemir to 18 units twice a day and also had increased her sliding scale NovoLog to start with 8 units. Today the patient has been switched to 60 mg of prednisone once a day. This should help with her blood sugar control. The pattern should be high sugar late in the day and by the next morning her sugar should be down. Plan: Suggest continue the present insulin for now has her steroid therapy has been reduced to a single dose of 60 mg once a day in the morning. Should help with patrol of her blood sugars. After observing her sugars today further adjustments can be made. Subjective Subjective: Feels improved Review of Systems Constitutional: Denies: chills, fever. Cardiovascular: Denies: chest pain. Respiratory: Denies: cough, short of breath. Gastrointestinal: Denies: abdominal pain, nausea, vomiting. Skin: Reports: change in skin color (redness lower legs). Objective Last 24 Hrs of Vital Signs/I&O Vital Signs Date Time Temp Pulse Resp B/P Pulse O2 O2 Flow FiO2 Ox Delivery Rate 08/31 0955 80 120/80 08/31 0853 93 Nasal 2.0L Cannula 08/31 0651 98.2 73 20 140/80 100 Nasal Cannula 08/31 0600 98.2 73 20 140/80 08/31 0354 88 95 08/31 0038 82 96 08/31 0000 96 BIPAP 30% 08/30 2310 88 97 08/30 2140 98.1 81 20 140/80 96 08/30 1630 96 08/30 1600 Nasal 2.0L Cannula 08/30 1555 89 97 08/30 1539 97 Nasal 2.0L Cannula 08/30 1401 98.7 76 20 142/80 96 Nasal 3.0L Cannula 08/30 1205 95 08/30 1054 84 99 Intake & Output 08/31 1600 08/31 0800 08/31 0000 Intake Total 600 600 Output Total 1600 501 Balance -1000 99 Intake, IV 0 Intake, Oral 600 600 Number 0 Bowel Movements Output, Stool 1 Output, Urine 1600 500 Vital Signs Date Time Temp Pulse Resp B/P Pulse O2 O2 Flow FiO2 Ox Delivery Rate 08/31 0955 80 120/80 08/31 0853 93 Nasal 2.0L Cannula 08/31 0651 98.2 73 20 140/80 100 Nasal Cannula 08/31 0600 98.2 73 20 140/80 08/31 0354 88 95 08/31 0038 82 96 08/31 0000 96 BIPAP 30% 08/30 2310 88 97 08/30 2140 98.1 81 20 140/80 96 08/30 1630 96 08/30 1600 Nasal 2.0L Cannula 08/30 1555 89 97 08/30 1539 97 Nasal 2.0L Cannula 08/30 1401 98.7 76 20 142/80 96 Nasal 3.0L Cannula 08/30 1205 95 08/30 1054 84 99 Intake & Output 08/31 1600 08/31 0800 08/31 0000 Intake Total 600 600 Output Total 1600 501 Balance -1000 99 Intake, IV 0 Intake, Oral 600 600 Number 0 Bowel Movements Output, Stool 1 Output, Urine 1600 500 Physical Exam General Appearance: no apparent distress, lethargic, morbidly obese Head: normal appearance Neck: normal inspection Respiratory: decreased breath sounds Cardiovascular: regular rate/rhythm Abdomen: normal bowel sounds Extremities: normal inspection (redness lower legs) Current Medications: Current Medications Sig/Zeyad Start time Last Medication Dose Route Stop Time Status Admin Albuterol Sulfate 3 ML EVERY 4 HRS/AWAKE 08/29 0930 AC 08/31 INH 0852 Azithromycin 500 MG DAILY 08/28 2199 AC 08/31 Sodium Chloride 250 ML IV 0957 Benzonatate 100 MG Q8P PRN 08/31 0645 AC 08/31 PO 0955 Budesonide/ 2 PUF BID 08/28 2199 AC 08/31 Formoterol Fumarate INH 0958 Carisoprodol 350 MG TID 08/28 2199 AC 08/31 PO 0955 Fluticasone 2 SPRAY DAILY 08/29 1552 AC 08/31 Propionate JOSELO 0954 Furosemide 80 MG 1800 08/31 1800 AC PO Furosemide 160 MG 0700 08/31 0700 AC 08/31 PO 0626 Furosemide 160 MG DAILY 08/29 1000 DC 08/30 PO 0936 Furosemide 80 MG QPM 08/28 2200 DC 08/28 PO 2356 Heparin Sodium 5,000 UNIT Q8 08/28 2200 AC 08/31 (Porcine) SC 0626 Insulin Aspart 0 TIDAC/HS 08/29 1700 AC 08/31 SC 0747 Insulin Detemir 18 UNITS BID 08/30 2200 AC 08/31 SC 0954 Lisinopril 20 MG DAILY 08/29 1000 AC 08/31 PO 0955 Methadone HCl 40 MG DAILY 08/29 1000 AC 08/31 PO 0955 Methadone HCl 30 MG AT BEDTIME 08/28 2230 AC 08/30 PO 2114 Methylprednisolone 40 MG Q12 08/30 2200 DC 08/30 IV 2114 Morphine Sulfate 15 MG TID 08/28 2200 AC 08/31 PO 0955 Nicotine 21 MG DAILY 08/29 1000 AC 08/31 TOP 0745 Prednisone 60 MG DAILY 08/31 1000 AC 08/31 PO 1031 Pregabalin 300 MG BID 08/29 1000 AC 08/31 PO 0955 Tiotropium [place] 1 PUF DAILY 08/29 1000 AC 08/31 INH 0955 Trazodone HCl 50 MG QPM 08/28 2200 AC 08/30 PO 2120
[2016-08-31 14:00] VITALS: BP 120/82
[2016-08-31] MEDS ORDERED: PREDNISONE20 M1 PO (16:37)
[2016-08-31] MEDS ORDERED: NOVOLOG100 UNIT/2 SC (16:37)
--- NOTE | 2016-08-31 16:38 | Patient Discharge Instructions ---
Discharge Instructions General Discharge Information You were seen/treated for: copd exacerbastion Special Instructions: please f/u with Dr Palomo in 1 week of d.c you need to [place] sleep study Acute Coronary Syndrome Inclusion Criteria At DC or during hospital stay patient has or had the following: ACS DIAGNOSIS No Discharge Core Measures Meds if any: Prescribed or Continued at Discharge Meds if any: NOT Prescribed or Continued at Discharge Congestive Heart Failure Inclusion Criteria At DC or during hospital stay patient has or had the following: CHF DIAGNOSIS No Discharge Core Measures Meds if any: Prescribed or Continued at Discharge Meds if any: NOT Prescribed or Continued at Discharge Cerebrovascular accident Inclusion Criteria At DC or during hospital stay patient has or had the following: CVA/TIA Diagnosis No Discharge Core Measures Meds if any: Prescribed or Continued at Discharge Meds if any: NOT Prescribed or Continued at Discharge Venous thromboembolism Inclusion Criteria VTE Diagnosis No VTE Type NONE VTE Confirmed by (Test) NONE Discharge Core Measures - Per Current guidelines, there needs to be overlap - treatment for the first 5 days of Warfarin therapy. - If discharged on Warfarin prior to 5 days of - overlap therapy, the patient will need to be - assessed for post discharge needs including - *Post discharge parental anticoagulation - *Warfarin and/or parental anticoagulation education - *Follow up date to check INR post discharge At least 5 days overlap therapy as Inpatient No Meds if any: Prescribed or Continued at Discharge Note: Overlap Therapy is Warfarin and Anticoagulant Meds if any: NOT Prescribed or Continued at Discharge
[2016-08-31 21:56] VITALS: BP 150/70
[2016-09-01 06:00] VITALS: BP 146/72
[2016-09-01 06:55] VITALS: BP 146/72
--- NOTE | 2016-09-01 07:56 | PN- Pulmonary ---
Subjective HPI/Critical Care Issues: Patient is awake alert comfortable on nasal oxygen using nasal BiPAP overnight Objective Current Medications: Current Medications Sig/Zeyad Start time Last Medication Dose Route Stop Time Status Admin Acetaminophen 650 MG Q4P PRN 08/31 1430 AC 08/31 PO 1445 Albuterol Sulfate 3 ML EVERY 4 HRS/AWAKE 08/29 0930 AC 08/31 INH 2104 Azithromycin 500 MG DAILY 08/28 2200 DC 08/31 Sodium Chloride 250 ML IV 0957 Benzonatate 100 MG Q8P PRN 08/31 0645 AC 08/31 PO 0955 Budesonide/ 2 PUF BID 08/28 2200 AC 08/31 Formoterol Fumarate INH 2116 Carisoprodol 350 MG TID 08/28 2200 AC 08/31 PO 2116 Fluticasone 2 SPRAY DAILY 08/29 1552 AC 08/31 Propionate JOSELO 0954 Furosemide 80 MG 1800 08/31 1800 AC 08/31 PO 1850 Furosemide 160 MG 0700 08/31 0700 AC 09/01 PO 0639 Heparin Sodium 5,000 UNIT Q8 08/28 2200 AC 09/01 (Porcine) SC 0640 Insulin Aspart 0 TIDAC/HS 08/29 1700 AC 08/31 SC 2113 Insulin Detemir 18 UNITS BID 08/30 2200 AC 08/31 SC 2113 Lisinopril 20 MG DAILY 08/29 1000 AC 08/31 PO 0955 Methadone HCl 40 MG DAILY 08/29 1000 AC 08/31 PO 0955 Methadone HCl 30 MG AT BEDTIME 08/28 2230 AC 08/31 PO 2116 Methylprednisolone 40 MG Q12 08/30 2200 DC 08/30 IV 2114 Morphine Sulfate 15 MG TID 08/28 2200 AC 08/31 PO 2116 Nicotine 21 MG DAILY 08/29 1000 AC 08/31 TOP 0745 Prednisone 60 MG DAILY 08/31 1000 AC 08/31 PO 1031 Pregabalin 300 MG BID 08/29 1000 AC 08/31 PO 2115 Senna/Docusate Sodium 1 TAB BID PRN 08/31 2345 AC PO Tiotropium [place] 1 PUF DAILY 08/29 1000 AC 08/31 INH 0955 Trazodone HCl 50 MG QPM 08/28 2200 AC 08/31 PO 2117 Vital Signs & I&O Last 24 Hrs of Vitals and I&O: Vital Signs Date Time Temp Pulse Resp B/P Pulse O2 O2 Flow FiO2 Ox Delivery Rate 09/01 0655 98.1 79 20 146/72 94 BIPAP 09/01 0556 81 99 09/01 0315 78 98 09/01 0000 94 BIPAP 30% 08/31 2156 98.0 88 20 150/70 94 08/31 2155 96 98 08/31 1704 95 Nasal 2.0L Cannula 08/31 1600 Nasal 2.0L Cannula 08/31 1400 98.1 82 20 120/82 08/31 1400 98.1 82 20 120/82 94 Nasal 2.0L Cannula 08/31 0955 80 120/80 08/31 0853 93 Nasal 2.0L Cannula 08/31 0800 92 Nasal 2.0L Cannula Intake & Output 09/01 0800 09/01 0000 08/31 1600 Intake Total 480 1270 Output Total 2000 2100 Balance -1520 -830 Intake, IV 270 Intake, Oral 480 1000 Number 0 Bowel Movements Output, Urine 1999 2100 Oxygen saturation 2 L 95% exam for chest shows diminished breath sounds are no wheezes cardiac exam shows regular S1 and S2 without murmurs Impression/Plan Impression/Plan Impression/Plan: 36-year-old morbidly obese woman on high-dose opiates admitted with exacerbation of COPD she's been counseled regarding the need for smoking cessation. She likely has evidence of chronic hypercarbia based on elevated bicarbonate. There is high suspicion for pulmonary hypertension and venous insufficiency with chronic edema and erythema. Respiratory status is improved with diuresis supplemental oxygen Recommendations: Begin prednisone taper continue nocturnal BiPAP Taper FiO2 his saturations allow patient may require oxygen at discharge and will need outpatient sleep study. This management will need to arrange for home oxygen nasal BiPAP
--- NOTE | 2016-09-01 08:09 | PN- Diabetes ---
Assessment/Plan Assessment: This 56-year-old woman has diabetes mellitus type 2 associated with morbid obesity. She came in with exacerbation of COPD and also has a rash with excoriated areas on her abdomen and chest. She has chronic edema of her legs with redness swelling and weeping. On high-dose steroids as part of the treatment of her COPD. Patient was switched to 60 mg of prednisone once a day. She is on Levemir 18 units twice a day, Novolog coverage before meals and Novolog coverage at bedtime. Her FSGs were 358, 219, 350, 383 and 252. Plan: 1. continue Levemir 18 units twice a day; 2. increase Novolog coverage before meals-- detail see the inpatient DM order; 3. continue the Novolog coverage at bedtime; 4. monitor FSGs will follow. Inpatient Diabetes Orders Before Each Meal: Bolus Insulin: Novolog < 80 mg/dl: no coverage 80-100 mg/dl: 10 units 101-120 mg/dl: 10 units 121-150 mg/dl: 10 units 151-200 mg/dl: 12 units 201-250 mg/dl: 14 units 251-300 mg/dl: 16 units 301-350 mg/dl: 18 units 351-400 mg/dl: 20 units > 400 mg/dl: 22 units Subjective Subjective: She feels better this morning. Objective Last 24 Hrs of Vital Signs/I&O Vital Signs Date Time Temp Pulse Resp B/P Pulse O2 O2 Flow FiO2 Ox Delivery Rate 09/01 0655 98.1 79 20 146/72 94 BIPAP 09/01 0556 81 99 09/01 0315 78 98 09/01 0000 94 BIPAP 30% 09/01 2155 98.0 88 20 150/70 94 08/31 2155 96 98 08/31 1704 95 Nasal 2.0L Cannula 08/31 1600 Nasal 2.0L Cannula 08/31 1400 98.1 82 20 120/82 08/31 1400 98.1 82 20 120/82 94 Nasal 2.0L Cannula 08/31 0955 80 120/80 08/31 0853 93 Nasal 2.0L Cannula Intake & Output 09/01 1600 09/01 0800 09/01 0000 Intake Total 480 Output Total 1999 Balance -1520 Intake, Oral 480 Output, Urine 2000 Findings Pertinent Lab/Romain Results: Laboratory Tests 08/31 1219 Chemistry Sodium (137 - 145 mmol/L) 139 Potassium (3.5 - 5.1 mmol/L) 3.6 Chloride (98 - 107 mmol/L) 88 L Carbon Dioxide (22 - 30 mmol/L) 39 H Anion Gap (5 - 16) 12 BUN (7 - 17 mg/dL) 19 H Creatinine (0.5 - 1.0 mg/dL) 0.7 Estimated GFR (>60 ml/min) > 60 BUN/Creatinine Ratio (7 - 25 %) 27.1 H Glucose (65 - 99 mg/dL) 206 H
[2016-09-01] MEDS ORDERED: NOVOLOG100 UNIT/2 SC (09:24)
--- NOTE | 2016-09-01 09:49 | PN- Housestaff ---
SAUL NORTH,BANDAR 09/01/16 0937: Subjective Follow-up For: COPD exacerbation Bilateral lower extremity erythema Subjective: Saw patient at bedside this a.m. She was on BiPAP. Denied any complaints overnight events. Likely be discharged today if able to obtain necessary BiPAP at home O2 Review of Systems Constitutional: Reports: no symptoms. Cardiovascular: Denies: chest pain. Respiratory: Reports: short of breath. Denies: sputum production, wheezing. Gastrointestinal: Reports: no symptoms. Genitourinary: Reports: no symptoms. Musculoskeletal: Denies: joint pain, joint swelling, muscle pain, muscle stiffness. Objective Last 24 Hrs of Vital Signs/I&O Vital Signs Date Time Temp Pulse Resp B/P Pulse O2 O2 Flow FiO2 Ox Delivery Rate 09/01 0817 Nasal 2.0L Cannula 09/01 0655 98.1 79 20 146/72 94 BIPAP 09/01 0600 98.1 79 20 146/72 09/01 0556 81 99 09/01 0555 81 99 BIPAP 30% 09/01 0315 78 98 09/01 0000 94 BIPAP 30% 08/31 2156 98.0 88 20 150/70 94 08/31 2155 96 98 08/31 1704 95 Nasal 2.0L Cannula 08/31 1600 Nasal 2.0L Cannula 08/31 1400 98.1 82 20 120/82 08/31 1400 98.1 82 20 120/82 94 Nasal 2.0L Cannula 08/31 0955 80 120/80 Intake & Output 09/01 1600 09/01 0800 09/01 0000 Intake Total 580 480 Output Total 1000 1999 Balance -420 -1520 Intake, IV 0 Intake, Oral 580 480 Number 0 Bowel Movements Output, Urine 1000 1999 Physical Exam General Appearance: Alert, Oriented X3, Cooperative Skin: No Rashes, No Significant Lesion HEENT: Atraumatic, PERRLA, EOMI Neck: Supple Cardiovascular: Regular Rate, Normal S1, Normal S2, No Murmurs Lungs: upon auscultation patient still sounds like she has decreased air movement. However it sounds improved from Thursday. She has no wheezes rales or rhonchi to auscultation. Abdomen: Soft, No Tenderness Extremities: lower extremities still erythematous. Right greater than left. Not warm to touch. Nontender. Current Medications: Current Medications Sig/Zeyad Start time Last Medication Dose Route Stop Time Status Admin Acetaminophen 650 MG Q4P PRN 08/31 1430 AC 08/31 PO 1445 Albuterol Sulfate 3 ML EVERY 4 HRS/AWAKE 08/29 0930 AC 09/01 INH 0816 Azithromycin 500 MG DAILY 08/28 2200 DC 08/31 Sodium Chloride 250 ML IV 0957 Benzonatate 100 MG Q8P PRN 08/31 0645 AC 08/31 PO 0955 Budesonide/ 2 PUF BID 08/28 2200 AC 08/31 Formoterol Fumarate INH 2117 Carisoprodol 350 MG TID 08/28 2200 AC 08/31 PO 2116 Fluticasone 2 SPRAY DAILY 08/29 1552 AC 08/31 Propionate JOSELO 0954 Furosemide 80 MG 1800 08/31 1800 AC 08/31 PO 1850 Furosemide 160 MG 0700 08/31 0700 AC 09/01 PO 0639 Heparin Sodium 5,000 UNIT Q8 08/28 2200 AC 09/01 (Porcine) SC 0640 Insulin Aspart 0 TIDAC/HS 08/29 1700 AC 09/01 SC 0813 Insulin Detemir 18 UNITS BID 08/30 2200 AC 08/31 SC 2113 Lisinopril 20 MG DAILY 08/29 1000 AC 08/31 PO 0955 Methadone HCl 40 MG DAILY 08/29 1000 AC 08/31 PO 0955 Methadone HCl 30 MG AT BEDTIME 08/28 2230 AC 08/31 PO 2116 Morphine Sulfate 15 MG TID 08/28 2200 AC 08/31 PO 2116 Nicotine 21 MG DAILY 08/29 1000 AC 08/31 TOP 0745 Prednisone 60 MG DAILY 08/31 1000 AC 08/31 PO 1031 Pregabalin 300 MG BID 08/29 1000 AC 08/31 PO 2115 Senna/Docusate Sodium 1 TAB BID PRN 08/31 2345 AC PO Tiotropium [place] 1 PUF DAILY 08/29 1000 AC 08/31 INH 0955 Trazodone HCl 50 MG QPM 08/28 2200 AC 08/31 PO 2117 Last 24 Hrs of Lab/Romain Results Last 24 Hrs of Labs/Mics: Laboratory Tests 09/01/16 0808: Anion Gap 11, Estimated GFR > 60, BUN/Creatinine Ratio 27.1 H 08/31/16 1219: Anion Gap 12, Estimated GFR > 60, BUN/Creatinine Ratio 27.1 H, Glucose 206 H Assessment/Plan Assessment: This is a 56-year-old female past medical history significant for hypertension, diabetes, aortic stenosis status post valve replacement, COPD not on home OT, NISHANT, chronic back pain on methadone, and a 2 pack per day habit for "forever." She comes in for chief complaint of exertional dyspnea or productive cough. Patient states her symptoms worsened acutely over the past 2 weeks however they' ve been present since last December. She has been on chronic prednisone therapy for the past 2 months. She is admitted to the general medicine floor for continued evaluation of bilateral lower extremity erythema and COPD exacerbation. Plan 1. Acute hypoxic resp failure: She has a 2 pack per day habit of smoking, was started on bibap in hospital. Over night, used bipap and satting 94. * Appreciate pulmonary consult. * BiPAP, see construction project mgr note for settings * prednisone 60 mg daily---> Will start taper * Finished course of azithromycin. * Pulmonology recommended outpatient sleep study. * Follow-up outpatient CT scan for groundglass opacity seen on CAT scan 2. Diabetes: Last blood sugars at 252, 383, 350, 219. Elevated blood sugars likely secondary to poor diet in addition to steroid therapy * Endocrinology consult appreciated * Continue Levemir to 18 units twice a day * Her sliding scale was modified yesterday as per endocrinology today 3. Elevated d-dimer: Resolved.Patient given a d-dimer 390, given shortness of breath there was suspicion for possibility of PE. CTA was negative. 4. Bilateral lower extremity erythema: Patient came in with bilateral lower extremity edema that she states acutely worsened over the past 4 days outpatient Lower extremity venous Doppler was done and was negative for DVTs.. Patient does not have fever, or elevated white count. Likely secondary to chronic venous stasis changes. However, if suspicion for cellulitis arises we'll treat with antibiotic * continue to monitor clinically full code chemical dvt ppx diabetic diet Problem List: 1. Hypoglycemia 2. COPD (chronic obstructive pulmonary disease) Pain Ratin Pain Location: none Pain Goal: Remain pain free Pain Plan: current reg Tomorrow's Labs & Rationales: none DVT/Prophylaxis: mechanical, pharmacological MELISSA COREAS 09/01/16 1142: Attending MD Review Statement Attending Statement Attending MD Statement: examined this patient, discuss w/resident/PA/MUSIC ENGRAVER, agreed w/resident/PA/MUSIC ENGRAVER, discussed with family, reviewed EMR data (avail), discussed with nursing, discussed with case mgmt, reviewed images, amended to note Attending Assessment/Plan: 56 yo morbidly obese F, smoker, with h/o T2DM, HTN, asthma/?COPD, chronic back pain/lumbar radiculopathy on methadone (previous neurostimulator implant), chronic LE edema, 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 Chills+, chest discomfort+. She reports that since Dec 2015, her symptoms have gradually worsened. She has been treated with Azithro and most recently placed on Levofloxacin, and has been on prednisone (2 tabs now up to 4 tabs QD) for past 1-2 months, without much relief. She has never been diagnosed with COPD, sleep apnea and has not seen a Can Intake Worker." ASSESSMENT AND PLAN 1. Acute respiratory failure, chronic compensated respiratory acidosis/ hypercarbia in the setting of COPD exacerbation. No underlying pneumonia or CHF. She may have an undiagnosed component of NISHANT or OHS. Pulmonary on board, c/w taper steroids, abx completed, trial of bipap at night as per pulm. recent ECHO reviewed. Patient will require f/u o/p CT chest for groundglass opacity. 2. DM uncontrolled hyperglycemia with Recurrent hypoglycemia in this patient with T2DM on insulin. Diabetes education, RISS and titrate insulin as needed. Endocrinology consulted, f/u endo recommendations. 3. B/l LE edema appears chronic with stasis dermatitis. refused USG b/l legs 4. Chronic back pain on methadone. Prescribed by Dr. Laws and received from [facility]. resumed methadone. 5. Transaminitis f/u LFTs. DVT ppx Hep SC. Full code. d/c planning , case management on board.
--- NOTE | 2016-09-01 13:47 | NUR ---
PT AMBULATED ON 2LNC. BEGAN AT 96% O2 SAT AND DROPPED TO 94%. PT WENT FROM ROOM DOWN UNIT HALLWAY AND BACK TO BED WITH CANE. PT WAS SOB UPON TRANSFER. AFTER 15 MINUTES OF REST, PT DENYING SOB. RR WNL. PT THEN AMBULATED ON RA. STARTED AT 94% AND DROPPED TO 88%. PT WAS SOB AND AUDIBLY WHEEZING. PT STATED SHE FELT DIZZY AND WANTED TO SIT. AMBULATED SAME DISTANCE WHEN AMBULATED WITH 2LNC. SUPERVISOR FUR FLOOR WORKER AND APPLICATIONS CHEMIST NOTIFIED. 2LNC PLACED ON PATIENT AFTER AMBULATION.
[2016-09-01 14:00] VITALS: BP 130/70
--- NOTE | 2016-09-01 14:43 | PN- Student ---
Subjective Subjective: Seen this morning. No acute overnight reports. Patient was sitting on the side of the bed. Currently on BiPAP. Complaints of shortness of breath and inability to cough up respiratory secretions. Objective Objective: Vital Signs Date Time Temp Pulse Resp B/P Pulse O2 O2 Flow FiO2 Ox Delivery Rate 09/01 1400 97.7 88 20 130/70 94 Nasal 2.0L Cannula 09/01 1013 80 150/72 09/01 0817 Nasal 2.0L Cannula 09/01 0800 96 Nasal 2.0L Cannula 09/01 0655 98.1 79 20 146/72 94 BIPAP 09/01 0600 98.1 79 20 146/72 09/01 0556 81 99 09/01 0555 81 99 BIPAP 30% 09/01 0315 78 98 09/01 0000 94 BIPAP 30% 08/31 2156 98.0 88 20 150/70 94 08/31 2155 96 98 08/31 1704 95 Nasal 2.0L Cannula 08/31 1600 Nasal 2.0L Cannula Intake & Output 09/01 1600 09/01 0800 09/01 0000 Intake Total 1000 580 480 Output Total 1500 1000 2000 Balance -500 -420 -1520 Intake, IV 0 0 Intake, Oral 1000 580 480 Number 1 0 Bowel Movements Output, Urine 1500 1000 1999 Physical Exam General Appearance: Alert, Oriented X3, Cooperative Skin: Bilateral lower leg erythema HEENT: Atraumatic, PERRLA, EOMI Neck: Supple Cardiovascular: Regular Rate, Normal S1, Normal S2, No Murmurs Lungs: Upon auscultation patient still sounds like she has decreased air movement. However it sounds improved from Thursday. She has no wheezes, rales, or rhonchi to auscultation. Abdomen: Soft, No Tenderness Extremities: Lower extremities still erythematous. Right greater than left. Not warm to touch. Nontender. Current Medications Sig/Zeyad Start time Last Medication Dose Route Stop Time Status Admin Acetaminophen 650 MG Q4P PRN 08/31 1430 AC 08/31 PO 1445 Albuterol Sulfate 3 ML EVERY 4 HRS/AWAKE 08/29 0930 AC 09/01 INH 1111 Benzonatate 100 MG Q8P PRN 08/31 0645 AC 09/01 PO 1013 Budesonide/ 2 PUF BID 08/28 2200 AC 09/01 Formoterol Fumarate INH 1013 Carisoprodol 350 MG TID 08/28 2200 AC 09/01 PO 1011 Fluticasone 2 SPRAY DAILY 08/29 1552 AC 09/01 Propionate JOSELO 1009 Furosemide 80 MG 1800 08/31 1800 AC 08/31 PO 1850 Furosemide 160 MG 0700 08/31 0700 AC 09/01 PO 0639 Heparin Sodium 5,000 UNIT Q8 08/28 2200 AC 09/01 (Porcine) SC 0640 Insulin Aspart 0 TIDAC/HS 08/29 1700 AC 09/01 SC 1206 Insulin Detemir 18 UNITS BID 08/30 2200 AC 09/01 SC 1005 Lisinopril 20 MG DAILY 08/29 1000 AC 09/01 PO 1013 Methadone HCl 40 MG DAILY 08/29 1000 AC 09/01 PO 1012 Methadone HCl 30 MG AT BEDTIME 08/28 2230 AC 08/31 PO 2116 Morphine Sulfate 15 MG TID 08/28 2200 AC 09/01 PO 1011 Nicotine 21 MG DAILY 08/29 1000 AC 09/01 TOP 1002 Patient Medication 1 ED .STK-MED ONE 09/01 1314 DC Teaching ED 09/01 1315 Potassium Chloride 40 MEQ ONCE ONE 09/01 1130 DC 09/01 PO 09/01 1131 1207 Prednisone 60 MG DAILY 08/31 1000 AC 09/01 PO 1013 Pregabalin 300 MG BID 08/29 1000 AC 09/01 PO 1012 Senna/Docusate Sodium 1 TAB BID PRN 08/31 2345 AC 09/01 PO 1013 Tiotropium [place] 1 PUF DAILY 08/29 1000 AC 09/01 INH 1013 Trazodone HCl 50 MG QPM 08/28 2200 AC 08/31 PO 2117 Assessment/Plan Assessment: This is a 56-year-old female past medical history significant for hypertension, diabetes, aortic stenosis status post valve replacement, COPD not on home OT, NISHANT, chronic back pain on methadone, and a 2 pack per day habit for "forever." She comes in for chief complaint of exertional dyspnea or productive cough. Patient states her symptoms worsened acutely over the past 2 weeks however they' ve been present since last December. She has been on chronic prednisone therapy for the past 2 months. She is admitted to the general medicine floor for continued evaluation of bilateral lower extremity erythema and COPD exacerbation. Plan 1. Acute hypoxic respiratory failure secondary to COPD exacerbation: Patient was found to be desaturating to the 70s and 80s at PCP office. Was sent to ED. She has been saturating well on 2 L O2. Currently on BiPAP with a Pulse Ox of 94. She does not use any oxygen at home. She is on chronic prednisone therapy for the past 2 months per PCP. She has a 2 pack per day habit of smoking. * Appreciate pulmonary consult. * Saturating well on BiPAP * Switched to prednisone 60 mg daily * Pulmonology recommended outpatient sleep study. * She will be instructed to follow-up outpatient CT scan for groundglass opacity seen on CAT scan 2. Diabetes: Patient had an episode of hypoglycemia. She states that she took an overdose of insulin but different doctor's appointment and did not have time to eat. Patient had glucose down to 36 in ED upon admission. Her usual home regimen involves 24 units of Levemir twice a day and 15 units of short-acting prior to breakfast, followed by 15 units prior to lunch and 30 units prior to dinner. * Endocrinology consult appreciated * Continue Levemir to 18 units twice a day * Her sliding scale was modified as per endocrinology (higher) see order. * H and started steroid taper yesterday her blood glucose level 3. Elevated d-dimer: Patient had a d-dimer 390 and shortness of breath. Suspicion for possibility of PE. CTA was negative. * NTD for now 4. Bilateral lower extremity erythema: Patient came in with bilateral lower extremity edema that she states acutely worsened over the past 4 days. There are some ground glass opacities present bilaterally. Need to rule out DVT vs cellulitis. Lower extremity venous Doppler was done and was negative for DVTs * NTD for now
[2016-09-01] MEDS ORDERED: PREDNISONE20 M1 PO (14:50)
[2016-09-01] MEDS ORDERED: LEVEMIR100 UNIT/1 SC (14:58)
[2016-09-01 22:48] VITALS: BP 132/72
--- NOTE | 2016-09-02 02:22 | NUR ---
PATIENT COMPLAINED OF BEING HUNGRY. SUGAR WAS 399 AT 0100. PATIENT REQUESTED AND REQUESTED CZECH ICE AND BREAKFAST CEREAL. PATIEWNT WAS GIVEN ONE CZECH ICE AND 2 CEREALS WITH 1% MILK AT 0230.
[2016-09-02 06:15] VITALS: BP 126/84
[2016-09-02] MEDS ORDERED: PREDNISONE20 M1 PO (07:49)
--- NOTE | 2016-09-02 07:49 | PN- Pulmonary ---
Subjective HPI/Critical Care Issues: Patient is comfortable on nasal oxygen with improved oxygen saturation saturations. Persistently elevated bicarbonate reflects chronic hypercapnia. Objective Current Medications: Current Medications Sig/Zeyad Start time Last Medication Dose Route Stop Time Status Admin Acetaminophen 650 MG Q4P PRN 08/31 1430 AC 08/31 PO 1445 Albuterol Sulfate 3 ML EVERY 4 HRS/AWAKE 08/29 0930 AC 09/01 INH 2100 Benzonatate 100 MG Q8P PRN 08/31 0645 AC 09/01 PO 1013 Budesonide/ 2 PUF BID 08/28 2200 AC 09/01 Formoterol Fumarate INH 2120 Carisoprodol 350 MG TID 08/28 2200 AC 09/01 PO 2114 Fluticasone 2 SPRAY DAILY 08/29 1552 AC 09/01 Propionate JOSELO 1009 Furosemide 80 MG 1800 08/31 1800 AC 09/01 PO 1706 Furosemide 160 MG 0700 08/31 0700 AC 09/02 PO 0632 Heparin Sodium 5,000 UNIT Q8 08/28 2200 AC 09/02 (Porcine) SC 0631 Insulin Aspart 0 TIDAC/HS 08/29 1700 AC 09/01 SC 2116 Insulin Detemir 18 UNITS BID 08/30 2200 AC 09/01 SC 2115 Lisinopril 20 MG DAILY 08/29 1000 AC 09/01 PO 1013 Methadone HCl 40 MG DAILY 08/29 1000 AC 09/01 PO 1012 Methadone HCl 30 MG AT BEDTIME 08/28 2230 AC 09/01 PO 2114 Morphine Sulfate 15 MG TID 08/28 2200 AC 09/01 PO 2114 Nicotine 21 MG DAILY 08/29 1000 AC 09/01 TOP 1002 Patient Medication 1 ED .STK-MED ONE 09/01 1314 DC Teaching ED 09/01 1315 Potassium Chloride 40 MEQ ONCE ONE 09/01 1130 DC 09/01 PO 09/01 1131 1207 Prednisone 60 MG DAILY 08/31 1000 AC 09/01 PO 1013 Pregabalin 300 MG BID 08/29 1000 AC 09/01 PO 2114 Senna/Docusate Sodium 1 TAB BID PRN 08/31 2345 AC 09/01 PO 1013 Tiotropium [place] 1 PUF DAILY 08/29 1000 AC 09/01 INH 1013 Trazodone HCl 50 MG QPM 08/28 2200 AC 09/01 PO 2114 Vital Signs & I&O Last 24 Hrs of Vitals and I&O: Vital Signs Date Time Temp Pulse Resp B/P Pulse O2 O2 Flow FiO2 Ox Delivery Rate 09/02 0615 97.9 79 20 126/84 97 Nasal 2.0L Cannula 09/02 0600 98 Nasal 2.0L Cannula 09/02 0000 Nasal 2.0L Cannula 09/01 2248 98.1 89 20 132/72 93 Nasal Cannula 09/01 2200 99 Nasal 2.0L Cannula 09/01 1630 94 Nasal 2.0L Cannula 09/01 1600 Nasal 2.0L Cannula 09/01 1400 97.7 88 20 130/70 94 Nasal 2.0L Cannula 09/01 1013 80 150/72 09/01 0817 Nasal 2.0L Cannula 09/01 0800 96 Nasal 2.0L Cannula Intake & Output 09/02 0800 09/02 0000 09/01 1600 Intake Total 2899 926 1828 Output Total 2000 1500 Balance 1000 -1040 -500 Intake, IV 0 Intake, Oral 9205 251 2620 Number 1 1 Bowel Movements Output, Urine 2000 1500 Oxygen saturation 2 L 98% exam for chest shows diminished breath sounds are no wheezes cardiac exam shows regular S1 and S2 there is chronic brawny bilateral lower extremity edema Impression/Plan Impression/Plan Impression/Plan: 36-year-old morbidly obese woman on high-dose opiates admitted with exacerbation of COPD she's been counseled regarding the need for smoking cessation. She likely has evidence of chronic hypercarbia based on elevated bicarbonate. There is high suspicion for pulmonary hypertension and venous insufficiency with chronic edema and erythema. Respiratory status is improved with diuresis supplemental oxygen. Recommendations: Begin prednisone taper continue nocturnal BiPAP Taper FiO2 as saturations allow patient may require oxygen at discharge and will need outpatient sleep study. Assess oxygen saturations on room air. Maintain normal potassium in view of elevated bicarbonate.
--- NOTE | 2016-09-02 08:53 | PN- Diabetes ---
Assessment/Plan Assessment: This 56-year-old woman has diabetes mellitus type 2 associated with morbid obesity. She came in with exacerbation of COPD and also has a rash with excoriated areas on her abdomen and chest. She has chronic edema of her legs with redness swelling and weeping. On high-dose steroids as part of the treatment of her COPD. Patient was switched to 60 mg of prednisone once a day. She is on Levemir 18 units twice a day, Novolog coverage before meals and Novolog coverage at bedtime. Her FSGs were 252, 240, 425, 399, 342 and 337. Plan: 1. increase Levemir to 25 units twice a day; 2. adjust Novolog coverage before meals-- detail see the inpatient DM orders; 3. continue the current Novolog coverage at bedtime; 4. monitor FSGs. will follow. Inpatient Diabetes Orders Before Each Meal: Bolus Insulin: Novolog < 80 mg/dl: no coverage 80-100 mg/dl: 13 units 101-120 mg/dl: 13 units 121-150 mg/dl: 13 units 151-200 mg/dl: 15 units 201-250 mg/dl: 17 units 251-300 mg/dl: 19 units 301-350 mg/dl: 21 units 351-400 mg/dl: 23 units > 400 mg/dl: 25 units Subjective Subjective: She still didn't feel well this morning. Objective Last 24 Hrs of Vital Signs/I&O Vital Signs Date Time Temp Pulse Resp B/P Pulse O2 O2 Flow FiO2 Ox Delivery Rate 09/02 0615 97.9 79 20 126/84 97 Nasal 2.0L Cannula 09/02 0600 98 Nasal 2.0L Cannula 09/02 0000 Nasal 2.0L Cannula 09/01 2248 98.1 89 20 132/72 93 Nasal Cannula 09/01 2200 99 Nasal 2.0L Cannula 09/01 1630 94 Nasal 2.0L Cannula 09/01 1600 Nasal 2.0L Cannula 09/01 1400 97.7 88 20 130/70 94 Nasal 2.0L Cannula 09/01 1013 80 150/72 Intake & Output 09/02 1600 09/02 0800 09/02 0000 Intake Total 1000 960 Output Total 2000 Balance 1000 -1040 Intake, Oral 1000 960 Number 1 Bowel Movements Output, Urine 2000 Findings Pertinent Lab/Romain Results: Laboratory Tests 09/02 0704 Chemistry Sodium Pending Potassium Pending Chloride Pending Carbon Dioxide Pending Anion Gap Pending BUN Pending Creatinine Pending BUN/Creatinine Ratio Pending
[2016-09-02] MEDS ORDERED: LEVEMIR100 UNIT/1 SC (10:10)
[2016-09-02] MEDS ORDERED: NOVOLOG100 UNIT/2 SC (10:23)
--- NOTE | 2016-09-02 10:33 | NUR ---
PT TO BE D/C WITH O2 FOR DAILY USE AND BIPAP AT NIGHT, BOTH HOUSESTAFF AND THIS RN EDUCATED PT ON O2 SAFETY AT HOME, INCLUDING THE IMPORTANCE OF FIRE SAFETY. PT VERBALIZED UNDERSTANDING. WILL CONTINUE TO MONITOR.
--- NOTE | 2016-09-02 13:35 | PN- Housestaff ---
SAUL NORTH,BANDAR 09/02/16 1335: Subjective Follow-up For: AHRF COPD EXACERBATION Subjective: Saw pt at bedside. She did not recieve bipap lastnight for CPAP/O2 trial. She stated that she did not sleep well. She was somnolent upon speaking with her and did not want to answer any of my questions. Pt likely to be dc with bipap today. We educated her regarding the consequences of smoking and o2 administration at the same time. She verbally stated she understood that the combination was combustible and hazardous to her health. Review of Systems Constitutional: Denies: chills, weakness. EENTM: Reports: no symptoms. Cardiovascular: Reports: no symptoms. Respiratory: Reports: short of breath. Denies: sputum production, wheezing. Gastrointestinal: Reports: no symptoms. Genitourinary: Reports: no symptoms. Musculoskeletal: Reports: no symptoms. Objective Last 24 Hrs of Vital Signs/I&O Vital Signs Date Time Temp Pulse Resp B/P Pulse O2 O2 Flow FiO2 Ox Delivery Rate 09/02 1347 98.4 84 24 120/80 95 09/02 0950 79 126/84 09/02 0857 96 Nasal 2.0L Cannula 09/02 0800 Nasal 2.0L Cannula 09/02 0615 97.9 79 20 126/84 97 Nasal 2.0L Cannula 09/02 0600 98 Nasal 2.0L Cannula 09/02 0000 Nasal 2.0L Cannula 09/01 2248 98.1 89 20 132/72 93 Nasal Cannula 09/01 2200 99 Nasal 2.0L Cannula 09/01 1630 94 Nasal 2.0L Cannula 09/01 1600 Nasal 2.0L Cannula Intake & Output 09/02 1600 09/02 0800 09/02 0000 Intake Total 720 1000 960 Output Total 1999 Balance 720 1000 -1040 Intake, Oral 720 1000 960 Number 0 1 Bowel Movements Output, Urine 1999 Patient 122.47 kg Weight Physical Exam General Appearance: Alert, Cooperative, No Acute Distress Skin: No Rashes, No Breakdown HEENT: Atraumatic, PERRLA, EOMI Neck: Supple Cardiovascular: Regular Rate, Normal S1, Normal S2, No Murmurs Lungs: Normal Air Movement Abdomen: Soft, No Tenderness Neurological: Normal Speech Extremities: Pt has decreased erythema in bilat LE. Current Medications: Current Medications Sig/Zeyad Start time Last Medication Dose Route Stop Time Status Admin Acetaminophen 650 MG Q4P PRN 08/31 1430 AC 08/31 PO 1445 Albuterol Sulfate 3 ML EVERY 4 HRS/AWAKE 08/29 0930 AC 09/02 INH 1323 Benzonatate 100 MG Q8P PRN 08/31 0645 AC 09/01 PO 1013 Budesonide/ 2 PUF BID 08/28 2200 AC 09/02 Formoterol Fumarate INH 0947 Carisoprodol 350 MG TID 08/28 2200 AC 09/02 PO 0947 Fluticasone 2 SPRAY DAILY 08/29 1552 AC 09/02 Propionate JOSELO 0948 Furosemide 80 MG 1800 08/31 1800 AC 09/01 PO 1706 Furosemide 160 MG 0700 08/31 0700 AC 09/02 PO 0632 Heparin Sodium 5,000 UNIT Q8 08/28 2200 AC 09/02 (Porcine) SC 1442 Insulin Aspart 0 TIDAC/HS 08/29 1700 AC 09/02 SC 1204 Insulin Detemir 25 UNITS BID 09/02 1000 AC 09/02 SC 0946 Insulin Detemir 18 UNITS BID 08/30 2200 DC 09/01 SC 2115 Lisinopril 20 MG DAILY 08/29 1000 AC 09/02 PO 0950 Methadone HCl 40 MG DAILY 08/29 1000 AC 09/02 PO 0947 Methadone HCl 30 MG AT BEDTIME 08/28 2230 AC 09/01 PO 2114 Morphine Sulfate 15 MG TID 08/28 2200 AC 09/02 PO 0947 Nicotine 21 MG DAILY 08/29 1000 AC 09/02 TOP 0950 Prednisone 60 MG DAILY 08/31 1000 AC 09/02 PO 0950 Pregabalin 300 MG BID 08/29 1000 AC 09/02 PO 0950 Senna/Docusate Sodium 1 TAB BID PRN 08/31 2345 AC 09/01 PO 1013 Tiotropium [place] 1 PUF DAILY 08/29 1000 AC 09/02 INH 0947 Trazodone HCl 50 MG QPM 08/28 2200 AC 09/01 PO 2114 Last 24 Hrs of Lab/Romain Results Last 24 Hrs of Labs/Mics: Laboratory Tests 09/02/16 1100: Pulse Ox Probe Site LT, ABG O2 Sat Calc/Grant 96.0, O2 Concentration % 2L, O2 Delivery Method NC 09/02/16 0704: Anion Gap 10, Estimated GFR > 60, BUN/Creatinine Ratio 31.4 H Assessment/Plan Assessment: This is a 56-year-old female past medical history significant for hypertension, diabetes, aortic stenosis status post valve replacement, COPD not on home OT, NISHANT, chronic back pain on methadone, and a 2 pack per day habit for "forever." She comes in for chief complaint of exertional dyspnea or productive cough. Patient states her symptoms worsened acutely over the past 2 weeks however they' ve been present since last December. She has been on chronic prednisone therapy for the past 2 months. She is admitted to the general medicine floor for continued evaluation of bilateral lower extremity erythema and COPD exacerbation. Plan 1. Acute hypoxic resp failure: She has a 2 pack per day habit of smoking, was started on bibap in hospital. Over night, on cpap/o2 trial. * Appreciate pulmonary consult. * BiPAP, see donor services specialist note for settings * prednisone taper. * Finished course of azithromycin. * Pulmonology recommended outpatient sleep study. * Follow-up outpatient CT scan for groundglass opacity seen on CAT scan 2. Diabetes: Elevated blood sugars likely secondary to poor diet in addition to steroid therapy. Insulin leverir increasede to 25 bid. * Endocrinology consult appreciated * Levemir 25 units twice a day * Her sliding scale was modified yesterday as per endocrinology today 3. Elevated d-dimer: Resolved.Patient given a d-dimer 390, given shortness of breath there was suspicion for possibility of PE. CTA was negative. 4. Bilateral lower extremity erythema: Patient came in with bilateral lower extremity edema that she states acutely worsened over the past 4 days outpatient Lower extremity venous Doppler was done and was negative for DVTs.. Patient does not have fever, or elevated white count. Likely secondary to chronic venous stasis changes. However, if suspicion for cellulitis arises we'll treat with antibiotic * continue to monitor clinically full code chemical dvt ppx diabetic diet Problem List: 1. COPD (chronic obstructive pulmonary disease) Pain Ratin Pain Location: none Pain Goal: Remain pain free Pain Plan: none Tomorrow's Labs & Rationales: cbc bep DVT/Prophylaxis: pharmacological MELISSA COREAS 09/02/16 1349: Attending MD Review Statement Attending Statement Attending MD Statement: examined this patient, discuss w/resident/PA/PROCEDURE ANALYST, agreed w/resident/PA/PROCEDURE ANALYST, discussed with family, reviewed EMR data (avail), discussed with nursing, discussed with case mgmt, reviewed images, amended to note Attending Assessment/Plan: 56 yo morbidly obese F, smoker, with h/o T2DM, HTN, asthma/?COPD, chronic back pain/lumbar radiculopathy on methadone (previous neurostimulator implant), chronic LE edema, 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 Chills+, chest discomfort+. She reports that since Dec 2015, her symptoms have gradually worsened. She has been treated with Azithro and most recently placed on Levofloxacin, and has been on prednisone (2 tabs now up to 4 tabs QD) for past 1-2 months, without much relief. She has never been diagnosed with COPD, sleep apnea and has not seen a Gluing Crew Leader." ASSESSMENT AND PLAN 1. Acute respiratory failure, chronic compensated respiratory acidosis/ hypercarbia in the setting of COPD exacerbation. No underlying pneumonia or CHF. She may have an undiagnosed component of NISHANT or OHS. Pulmonary on board, c/w taper steroids, abx completed, trial of bipap at night as per pulm. recent ECHO reviewed. Patient will require f/u o/p CT chest for groundglass opacity. 2. DM uncontrolled hyperglycemia with Recurrent hypoglycemia in this patient with T2DM on insulin. Diabetes education, RISS and titrate insulin as needed. Endocrinology consulted, f/u endo recommendations. 3. B/l LE edema appears chronic with stasis dermatitis. refused USG b/l legs 4. Chronic back pain on methadone. Prescribed by Dr. Laws and received from [employer]. resumed methadone. 5. Transaminitis f/u LFTs. DVT ppx Hep SC. Full code. d/c planning , case management on board. Smoking counsellation in detail.
[2016-09-02 13:47] VITALS: BP 120/80
--- NOTE | 2016-09-03 22:17 | Discharge Summary ---
See Addendum Visit Information Visit Dates Admission Date: 08/28/16 Discharge Date: 09/02/16 Hospital Course Course Attending Physician: MELISSA COREAS MD Primary Care Physician: DAVID NORTH,ENMA Allen Consulting Request: Consulting Specialty: Pulmonary Disease Hospital Course: This is a 56-year-old female past medical history significant for hypertension, diabetes, aortic stenosis status post valve replacement, COPD not on home OT, NISHANT, chronic back pain on methadone, and a 2 pack per day habit for "forever." She comes in for chief complaint of exertional dyspnea or productive cough. Her symptoms worsened acutely over the past 2 weeks however they've been present since last December. She has been on chronic prednisone therapy for the past 2 months. She is admitted to the general medicine floor for continued evaluation of bilateral lower extremity erythema and COPD exacerbation. Pt was seen for the following problems in patient: 1. Acute hypoxic resp failure: Pt initially presented with desaturations of 70s and somnolence. She was foudn to be retaining Co2. In hospital evaluated by pulm service, placed on NC, given Nebs as necessary, given azithromycin and started on bipap at night. Per Dr. Palomo, pulmonoligist pt has failure of CPAP and requires BIPAP at home at night. She has a 2 pack per day habit of smoking. * prednisone taper. * Finished course of azithromycin. * Pulmonology recommended outpatient sleep study. * Follow-up outpatient CT scan for groundglass opacity seen on CAT scan. 2. Diabetes: Elevated blood sugars likely secondary to poor diet in addition to steroid therapy. Insulin leverir increasede to 25 bid. * Endocrinology consult appreciated * Levemir 25 units twice a day out patient basis. Insurance was clled and prior auth approved. * Stopped her lispro * Novolog started 3. Elevated d-dimer: Resolved.Patient given a d-dimer 390, given shortness of breath there was suspicion for possibility of PE. CTA was negative. 4. Bilateral lower extremity erythema: Patient came in with bilateral lower extremity edema that she states acutely worsened over the past 4 days outpatient Lower extremity venous Doppler was done and was negative for DVTs.. Patient does not have fever, or elevated white count. Likely secondary to chronic venous stasis changes. No suspicion for cellulitis not treated with antibiotic * continue to monitor clinically if worsens or pt has signs of infection consider trt of cellulitis. full code chemical dvt ppx diabetic diet Allergies: Coded Allergies: NO KNOWN ALLERGIES (03/19/11) Pertinent Lab Results: EXAMINATION: CT PULMONARY EMBOLISM STUDY CLINICAL INFORMATION: Dyspnea, tachycardia. COMPARISON: 08/28/2016. TECHNIQUE: Contiguous helical images of the chest were obtained following the administration of IV contrast. Multiplanar reconstructions were performed. MIPS were obtained and reviewed. DLP: 585 mGy-cm. CONTRAST: 73 mL of Optiray 350 were administered without incident. FINDINGS: The heart is of normal size. There is no pericardial effusion. The great vessels are unremarkable. Specifically, there is no pulmonary arterial filling defect. There is no CT evidence for pulmonary embolism. There are no chest wall masses. Intact midline sternal wires are present. Review of lung windows demonstrates that there are neither pleural effusions nor pneumothoraces. There is a small focus of and groundglass opacification within the superior segment of the right lower lobe. There are no pulmonary parenchymal nodules. Limited evaluation of the upper abdomen demonstrates that the liver is of normal size and attenuation without focal lesions. Normal adrenal glands are identified. IMPRESSION: No CT evidence for pulmonary embolism. Small focus of groundglass opacification within the superior segment of the right lower lobe. Disposition Summary Disposition Principal Diagnosis: Acute respiratory failure Additional Diagnosis: NISHANT Discharge Disposition: home health services Discharge Instructions General Discharge Information Code Status: Full Code Patient's Diet: heart healthy Patient's Activity: asa tolearated Follow-Up Instructions/Appts: 1. out pt sleep study 2. f/u with manager case 3. use o2 at tolerated 4. start using bipap; f/u with fittings Medications at Discharge Discharge Medications: Stop taking the following medications: Levofloxacin (Levofloxacin) 500 MG TABLET ORAL DAILY Qty = 10 Prednisone (Prednisone) 5 MG TABLET ORAL TWICE DAILY Qty = 60 Insulin Lispro (Humalog Kwikpen U-100) 100 UNIT/ML INSULN.PEN Inject into fatty tissue Every Morning Qty = 15 Insulin Lispro (Humalog Kwikpen U-100) 100 UNIT/ML INSULN.PEN Inject into fatty tissue TWICE DAILY Insulin Detemir (Levemir Flextouch) 100 UNIT/ML (3 ML) INSULN.PEN Inject into fatty tissue TAKE AT BEDTIME Qty = 15 Continue taking these medications: Albuterol Sulfate (Albuterol Sulfate) 2.5 MG/3 ML (0.083 %) VIAL.NEB 1 Vial Inhale Solution 4 TIMES A DAY Qty = 90 Comments: Last Taken: 09/02/16 Time: 1 PM Triamcinolone Acetonide (Triamcinolone Acetonide) 0.1 % CREAM..G. 1 Application On the skin as needed for RASH Qty = 45 Comments: NOT GIVEN IN HOSPITAL Furosemide (Furosemide) 80 MG TABLET 2 Tablet ORAL Every Morning Qty = 90 Comments: Last Taken: 09/02/16 Time: 5AM Furosemide (Lasix) 80 MG TABLET 1 Tablet ORAL Every night Comments: Last Taken: 09/01/16 Time: 5PM Metolazone (Metolazone) 2.5 MG TABLET 1 Tablet ORAL 2 times per week Qty = 10 Comments: NOT GIVEN IN HOSPITAL Fluticasone/Salmeterol (Advair 250-50 Diskus) 250 MCG-50 MCG/DOSE BLST.W.DEV 1 Puff Inhale through mouth TWICE DAILY Qty = 60 Comments: NOT GIVEN IN HOSPITAL Metformin HCl (Metformin HCl) 1,000 MG TABLET 1 Tablet ORAL TWICE DAILY Qty = 60 Comments: NOT GIVEN IN HOSPITAL Tiotropium Diller (Spiriva) 18 MCG CAP.W.DEV 1 Capsule Inhale through mouth DAILY Qty = 30 Comments: Last Taken: 09/02/16 Time: 10AM Methadone Hydrochloride (Methadone HCl) 10 MG TABLET 70 Milligram ORAL DAILY Qty = 180 Comments: Last Taken: 09/02/16 Time: 9AM Morphine Sulfate (Morphine Sulfate) 15 MG TABLET 1 Tablet ORAL THREE TIMES DAILY Qty = 90 Comments: Last Taken: 09/02/16 Time: 9AM Potassium Chloride (Potassium Chloride) 20 MEQ TAB.ER.PRT 1 Tablet ORAL THREE TIMES DAILY Qty = 90 Comments: NOT GIVEN IN HOSPITAL Albuterol Sulfate (Ventolin Hfa) 90 MCG HFA.AER.AD 2 Puff Inhale through mouth as needed for COPD Qty = 18 Comments: NOT GIVEN IN HOSPITAL Trazodone HCl (Trazodone HCl) 50 MG TABLET 1 Tablet ORAL Every night Qty = 30 Comments: Last Taken: 09/03/16 Time: 9PM Fluticasone Propionate (Fluticasone Propionate) 50 MCG/ACTUATION SPRAY.SUSP 2 [place] Both sides of nose DAILY Qty = 16 Comments: Last Taken: 09/02/16 Time: 10AM Carisoprodol (Carisoprodol) 350 MG TABLET 1 Tablet ORAL THREE TIMES DAILY Qty = 90 Comments: Last Taken: 09/02/16 Time: 10AM Lisinopril (Lisinopril) 20 MG TABLET 1 Tablet ORAL DAILY Qty = 30 Comments: Last Taken: 09/02/16 Time: 9AM Pregabalin (Lyrica) 300 MG CAPSULE 1 Capsule ORAL TWICE DAILY Qty = 60 Comments: Last Taken: 09/02/16 Time: 9AM Start taking the following new medications: Prednisone (Prednisone) 20 MG TABLET 60 Milligram ORAL DAILY Qty = 90 No Refills Instructions: On Take 09/03-09/04 50 MG 09/05-09/06 40 MG 09/07-09/08 30 MG 09/09-09/10 20 MG contnue taking 10 mg daily after that until see dr Palomo or Dr Raymond Comments: Last Taken: 09/02/16 Time: 9AM Insulin Detemir (Levemir) 100 UNIT/ML VIAL 25 Units Inject into fatty tissue TWICE DAILY Qty = 1 Refills = 3 Comments: Last Taken: 09/02/16 Time: 10AM Insulin Aspart (Novolog) 100 UNIT/ML VIAL 0 Units Inject into fatty tissue BEFORE MEALS AND AT BEDTIME Days = 30 No Refills Instructions: BEFORE MEALS Blood Insulin Sugar Units <80 0 81-100 13 101-120 13 121-150 13 151-200 15 201-250 17 251-300 19 301-350 21 351-400 23 >400 Call Doctor AT BEDTIME Blood Insulin Sugar Units <80 0 81-100 0 101-200 0 201-250 0 251-300 3 301-350 4 351-400 5 >400 Call Doctor Comments: Last Taken: 09/02/16 Time: 12 PM Copies To: DAVID NORTH,ENMA Allen
== END 2016-09-02 16:43 | disposition home health service (06) | DRG 189 ==
LOC: ENRESERVDT → ENRESERVTM → ERH 15:21 → 2NA 18:41 → ERHI 18:41 → 2NA 20:49
PROVIDERS: Emergency Medicine; Internal Medicine; Student in an Organized Health Care Education/Training Program; ADMIT Student in an Organized Health Care Education/Training Program
DX: J96.01 Acute respiratory failure with hypoxia (principal); E11.65 Type 2 diabetes mellitus with hyperglycemia; I10 Essential (primary) hypertension; J44.1 Chronic obstructive pulmonary disease with (acute) exacerbation; Z68.42 Body mass index [BMI] 45.0-49.9, adult; E66.01 Morbid (severe) obesity due to excess calories; Z79.84 Long term (current) use of oral hypoglycemic drugs; Z95.2 Presence of prosthetic heart valve; G47.33 Obstructive sleep apnea (adult) (pediatric); F17.200 Nicotine dependence, unspecified, uncomplicated; E78.5 Hyperlipidemia, unspecified; J45.909 Unspecified asthma, uncomplicated; Z79.891 Long term (current) use of opiate analgesic
CPT/HCPCS: 2NASP; 36415; 80307; 81003; 82436; 87040; 87086; 87449; 87450; 93005; 93010; 93970; 96374; 99291; J0456; J1644; J2920; J2930; J3490; J7040

== ENCOUNTER 2017-12-28 11:01 | Inpatient (IN) | payer OTHER, MEDICARE ==
[~2017-12-28] VITALS: Ht 163.8 cm; Wt 133.8 kg
[~2017-12-28 11:01] MED LIST changes: +ADVAIR 250-501 EACH INH; +ALBUTEROL2.5 MG/3 M INH/SOL; +CARISOPRODOL350 M1 PO; +CIPRO500 M1 PO; +FLUTICASONE PRO16 GM NASB; +FUROSEMIDE80 M1 PO; +HUMALOG KW100 UNIT/1 SC; +LASIX80 M1 PO; +LEVEMIR FL100 UNIT/1 SC; +LEVEMIR100 UNIT/1 SC; +LEVOFLOXACIN500 M1 PO; +LISINOPRIL20 M1 PO; +LYRICA300 M1 PO; +METFORMIN HCL1000 M1 PO; +METHADONE HCL10 M1 PO; +METOLAZONE2.5 M1 PO; +MORPHINE SULFAT15 M4 PO; +NOVOLOG100 UNIT/2 SC; +POTASSIUM CHLO20 ME2 PO; +PREDNISONE20 M1 PO; +PREDNISONE5 M1 PO; +PYRIDIUM200 M1 PO; +SPIRIVA18 MCG INH; +TRAZODONE HCL50 M1 PO; +TRIAMCINOLONE A15 G1 TOP; +VENTOLIN HFA18 GM INH
--- NOTE | 2017-12-28 12:05 | CT SCAN REPORT ---
EXAMINATION: CT HEAD WITHOUT CONTRAST CT CERVICAL SPINE WITHOUT CONTRAST CLINICAL INFORMATION: Status post fall with confusion. Assess for intracranial hemorrhage or fracture. COMPARISON: None. TECHNIQUE: Multidetector CT imaging of the head and cervical spine was performed without the use of intravenous contrast. Coronal and sagittal reformatted images were generated at the technologist workstation. Beam hardening artifact from occipital electrodes degrades imaging in the posterior fossa, and imaging is is also degraded by patient body habitus in the mid and lower cervical spine. DLP: 1005.59 mGy-cm. FINDINGS: CT head: There is no evidence of acute intracranial hemorrhage or territorial infarction. No abnormal mass-effect or midline shift is seen. Guzman to white matter differentiation is well preserved. No extra-axial fluid collections are identified. The ventricles are normal in size; asymmetry of the bodies of the lateral ventricles is within normal limits of variation. Attenuation of the brain parenchyma appears normal. There are no acute osseous findings. There are bilateral occipital electrodes to the left and right of midline extending from the chest cephalad. The mastoid air cells are well-aerated. There is mucoperiosteal thickening of the small right frontal sinus which is completely opacified. There is a retention cyst in the medial left sphenoid sinus. CT cervical spine: There is straightening of the normal cervical lordosis. There is multilevel narrowing of intervertebral disc height between C3-C4 and T1-T2. Vertebral body heights are maintained. There are multilevel marginal osteophytes, which are most prominent toward the left at C3-C4 and C4-C5. There are no acute fractures. The lateral masses of C1 and C2 are normally aligned and the dens is intact. There are multilevel facet arthropathic changes. The paravertebral structures and visualized upper lung agustin are unremarkable. IMPRESSION: 1. There are no acute bleeds or territorial infarcts. There are no acute osseous or soft tissue abnormalities. 2. There is multilevel spondylosis in the cervical spine. There no acute fractures or subluxations.
[2017-12-28 12:06] LABS: ABSOLUTE BASOPHIL COUNT 0 /CUMM (0.0-0.2); ABSOLUTE EOSINOPHIL COUNT 0.1 /CUMM (0.0-0.7); ABSOLUTE LYMPH COUNT 0.8 /CUMM (1.2-3.4); ABSOLUTE MONOCYTE COUNT 0.7 /CUMM (0.10-0.60); BASOPHIL % 0.1 % (0.0-2.0); GRANULOCYTE % 82.1 % (42.2-75.2); HEMATOCRIT 35.3 % (37-47); MEAN CORPUSCULAR HGB 28.1 PG (27.0-31.0); MEAN CORPUSCULAR HGB CONC 32.9 G/DL (33.0-37.0); MEAN CORPUSCULAR VOLUME 85.4 FL (81.0-99.0); MEAN PLATELET VOLUME 8.1 FL (7.4-10.4); PLATELET COUNT 256 /CUMM (130-400); RBC DISTRIBUTION WIDTH 15.4 % (11.5-14.5); RED BLOOD CELL CT 4.13 /CUMM (4.20-5.40); WHITE BLOOD CELL COUNT 8.6 /CUMM (4.8-10.8)
[2017-12-28 12:31] LABS: PT 14.4 SEC (9.4-12.5); PTT 24 SEC (25-37)
--- NOTE | 2017-12-28 12:36 | CT SCAN REPORT ---
EXAMINATION: CT CHEST WITHOUT CONTRAST CLINICAL INFORMATION: Status post fall onto right side. Confusion. Allergic pain. Rule out pneumothorax, fracture, trauma. COMPARISON: CTA of the chest dated 08/28/2016. TECHNIQUE: Multidetector volumetric CT imaging of the chest was obtained noncontrast. Sagittal and coronal reformations were obtained. DLP: 1070.63 mGy-cm. FINDINGS: LUNGS: Evaluation of the lungs is limited due to motion artifact and scattered linear atelectatic changes. There are stable 3 mm solid noncalcified pulmonary nodules seen, unchanged, including in the subpleural posterior segment of right upper lobe (series 4, image 113) and the peripheral lateral basal segment of the right lower lobe (series 4, image 310), unchanged from 08/29/2016, favoring an indolent/benign etiology, possibly noncalcified granulomas there is a questionable 4 mm nodular density seen associated with the small airways in the right middle lobe lateral segment (series 4, image 220), not clearly appreciated on prior study and possibly due to slight mucous plugging. Airways are otherwise unremarkable. No other new lung nodule or mass. No effusion or pneumothorax. LYMPHOVASCULAR STRUCTURES: Mild atherosclerotic calcifications of the aorta are seen. The heart is enlarged. No pericardial effusion or mediastinal hematoma. There is enlargement of the main, right and left pulmonary arteries, raising the suspicion of pulmonary arterial hypertension. Main pulmonary artery measures 3.8 cm in maximal diameter as compared to the ascending aorta, which measures 3.6 cm. Findings are similar to the prior exam. No mediastinal, hilar or axillary adenopathy or free fluid collection. THYROID GLAND: Unremarkable to the extent included. UPPER ABDOMEN: Included portions of the solid organs in the upper abdomen unremarkable. BONES: There is a comminuted intra-articular fracture of the right humeral head and neck with mild medial displacement. There may be a subtle nondisplaced hairline fracture of the posterior right ninth rib with slight angulation seen. No definite displaced rib fractures are noted. Spinal stimulator electrodes are seen within the posterior soft tissues of the thorax. The patient is status post median sternotomy. IMPRESSION: 1. Question of subtle nondisplaced and angulated fracture of the right posterior ninth rib. Comminuted nondisplaced fracture of the right humeral head and neck. 2. No evidence of right-sided pneumothorax or pleural effusion. 3. No definite mediastinal injury is seen, though evaluation is limited by noncontrast exam. 4. Stable 3 mm solid noncalcified nodules in the right upper lobe and right lower lobe, unchanged since 08/29/2016, favoring a benign etiology. Per the Fleischner criteria, no further follow-up is required, unless otherwise indicated clinically. 5. Probable small focus of mucous plugging within the lateral segmental airway in the right middle lobe.
--- NOTE | 2017-12-28 12:50 | RADIOLOGY REPORT ---
EXAMINATION: CR SHOULDER, RIGHT CR ELBOW, RIGHT CR HAND, RIGHT CLINICAL INFORMATION: Status post fall onto right shoulder with pain and swelling now. Rule out fracture or dislocation. Fall onto left elbow. Pain. Fall onto right hand. Pain and swelling. COMPARISON: CT scan of the chest dated 12/28/2017. TECHNIQUE: Three views of the right shoulder. 3 views of the right elbow. 3 views of the right hand. FINDINGS: Right shoulder: Evaluation is limited by suboptimal technique. There is a comminuted intra-articular fracture of the right humeral head and neck. The humeral head remains located within the glenoid. The acromioclavicular joint remains intact and the coracoclavicular distance is normal. The visualized right ribs are poorly seen but appear largely intact. Right elbow: Evaluation is limited due to nonstandard positioning. Mild degenerative changes are seen in the elbow joint. No definite acute fracture or dislocation is seen. No abnormal elevation of the anterior fat pad is seen. No radiopaque foreign body is noted. Right hand: Evaluation is limited due to partial flexion of the fingers. No definite acute fracture or dislocation is seen. There is dorsal soft tissue swelling over the hand. Prominent pencil in cup type deformity of the DIP joint of the fourth digit is seen, consistent with sequelae of previous fracture deformity. Milder degree of degeneration is seen in the DIP joints of the remaining digits. IMPRESSION: 1. Comminuted intra-articular fracture of the right humeral head and neck. 2. No acute fracture of the right elbow. 3. No acute fracture of the right hand. 4. Deformity of the DIP joint of the right fourth finger, consistent with sequelae of previous fracture. 5. Mild degenerative changes in the right elbow joint and the DIP joints of all digits in the right hand.
[2017-12-28] MEDS ORDERED: OXYCONTIN30 M1 PO (14:16)
[2017-12-28] MEDS ORDERED: OXYCODONE HCL10 M2 PO (14:16)
--- NOTE | 2017-12-28 14:21 | History & Physical ---
Ramses Kwan 12/28/17 1420: General Information and HPI History of Present Illness: 57-year-old female morbidities, active smoker(one pack a day since 25 years), with past medical history of diabetes mellitus, aortic valve stenosis, NISHANT(BiPAP ), COPD, chronic pain on methadone, TBI in 1998 presented to emergency department with a chief complaint of swelling and pain of the right arm, decreased movement since 2 days. Her swelling in the right arm started after she tripped on the floor and felt on ground on the right side, she denies any history of unconsciousness, bleeding, numbness and right hand. She had a sling on the right hand. She also having low blood sugar level initial presentation it was 50 mg/dL but now after dextrose saline 76 mg/dL . She denies sick contact, fever, chill, vomiting, diarrhea, burning micturition. Her labs significant for borderline low potassium level which is 3.4, her HB 11.6 g/dL, INR is 1.3, blood pressure 99/54, oxygen saturation 97% on 4 L of oxygen. Examination she she is on oxygen, right arm sling, decreased movement in the right arm, power 3/5, sensation is intact, there is no sign of cyanosis, no laceration, Chest: Bilateral normal air entry, no added sounds CVS: S1, S2 cannot appreciate any murmur. Allergies/Medications Allergies: Coded Allergies: NO KNOWN ALLERGIES (03/19/11) Past History Travel History Traveled to [place] past 21 day No Medical History Neurological: TBI EENT: NONE Cardiovascular: hypertension, hyperlipidemia Respiratory: asthma Gastrointestinal: NONE Hepatic: NONE Renal: NONE Musculoskeletal: chronic back pain Psychiatric: NONE Endocrine: diabetes Blood Disorders: NONE Cancer(s): NONE History of MRSA: No History of VRE: No History of CDIFF: No Tetanus Vaccine: 08/23/14 Surgical History Surgical History: non-contributory Past Family/Social History Psychosocial History Who Do You Live With? spouse Functional Ability Ambulation: cane Review of Systems Review of Systems Constitutional: Reports: see HPI. Exam & Diagnostic Data Last 24 Hrs of Vital Signs/I&O Vital Signs Date Time Temp Pulse Resp B/P B/P Pulse O2 O2 Flow FiO2 Mean Ox Delivery Rate 12/28 1702 98.2 122 16 99/54 97 Nasal 4.0L Cannula 12/28 1311 98.0 122 18 104/58 94 Nasal 3.5L Cannula 12/28 1106 98.6 137 18 93/63 94 Room Air Assessment/Plan Assessment: 57-year-old female morbidities, active smoker(one pack a day since 25 years), with past medical history of diabetes mellitus, aortic valve stenosis, NISHANT(BiPAP ), COPD, chronic pain on methadone, TBI in 1998 presented to emergency department with a chief complaint of swelling and pain of the right arm, decreased movement since 2 days. Her swelling in the right arm started after she tripped on the floor and felt on ground on the right side, she denies any history of unconsciousness, bleeding, numbness and right hand. She had a sling on the right hand. She also having low blood sugar level initial presentation it was 50 mg/dL. Problems list: = Right humerus head intra-articular fracture: = Hypoglycemic episodes = COPD = Diabetes mellitus =Plan: =Orthopedic consult placed. I spoke with orthopedic oim consultant by myself, she recommended that there is no need of intervention now, do CT scan of the right shoulder and I will see the patient tomorrow in a.m. =Hypoglycemic episode: Patient hypoglycemia may be due to the wrong dose of insulin administration. We will keep checking her sugar level every 2 hourly for 6 hours and then every 4 hourly till morning to look for any hypoglycemic episodes. But now her sugars 86 and normal = Admit the patient to general medicine floor. =NovoLog sliding scale once blood sugar stabilizes, and then re-assess tomorrow =Pain control for the humeral fracture =TRC/nebs =DVT PPX: Enoxaparin =Code status: Full code As Ranked By This Provider Problem List: 1. Fall at home 2. Hypoglycemia 3. COPD (chronic obstructive pulmonary disease) 4. Hypoglycemia due to insulin 5. Humerus fracture Core Measures/Misc (02/01) Acute Coronary Syndrome ACS Diagnosis: No Congestive Heart Failure Congestive Heart Failure Diagnosis No Cerebrovascular Accident CVA/TIA Diagnosis: No VTE (View Protocol) VTE Risk Factors Smoker No Mechanical VTE Prophylaxis d/t Other No VTE Pharm Prophylaxis d/t Other Sepsis (View protocol) Sepsis Present: No If YES complete Sepsis Event Note If YES complete Sepsis Event Note David NORTH,[place] 12/28/17 5631: General Information and HPI Allergies/Medications Home Med list Albuterol Sulfate 2.5 MG/3 ML (0.083 %) VIAL.NEB 1 Vial INH/ABBEY 4 TIMES/DAY COPD (Reported) Albuterol Sulfate (Ventolin Hfa) 90 MCG HFA.AER.AD 2 PUF INH PRN COPD ( Reported) Carisoprodol 350 MG TABLET 1 TAB PO TID MUSCLE RELAXER (Reported) Fluticasone Propionate 50 MCG/ACTUATION SPRAY.SUSP 2 SPRAY NASB DAILY ALLERGIES (Reported) Fluticasone/Salmeterol (Advair 250-50 Diskus) 250 MCG-50 MCG/DOSE BLST.W.DEV 1 PUF INH BID COPD (Reported) Furosemide 80 MG TABLET 2 TAB PO QAM DIURETIC (Reported) Furosemide (Lasix) 80 MG TABLET 1 TAB PO QPM DIURETIC (Reported) Insulin Aspart (Novolog) 100 UNIT/ML VIAL 0 UNITS SC TIDAC/HS diabetes BEFORE MEALS Blood Insulin Sugar Units <80 0 81-100 13 101-120 13 121-150 13 151-200 15 201-250 17 251-300 19 301-350 21 351-400 23 >400 Call Doctor AT BEDTIME Blood Insulin Sugar Units <80 0 81-100 0 101-200 0 201-250 0 251-300 3 301-350 4 351-400 5 >400 Call Doctor Insulin Detemir (Levemir) 100 UNIT/ML VIAL 25 UNITS SC BID Diabetes Linaclotide (Linzess) 290 MCG CAPSULE 1 CAP PO DAILY CONSTIPATION (Reported) Lisinopril 20 MG TABLET 1 TAB PO DAILY BP (Reported) Metformin HCl 1,000 MG TABLET 1 TAB PO BID DM (Reported) Methadone Hydrochloride (Methadone HCl) (Unknown Strength) TABLET (Unknown Dose) PO BID PAin (Reported) Metolazone 2.5 MG TABLET 1 TAB PO 2XW DIURETIC (Reported) Oxycodone HCl 10 MG TABLET 1 TAB PO BID PAIN (Reported) Oxycodone HCl (Oxycontin) 30 MG TAB.ER.12H 1 TAB PO TID PAIN (Reported) Potassium Chloride 20 MEQ TAB.ER.PRT 1 TAB PO TID SUPPLEMENT (Reported) Prednisone 20 MG TABLET 60 MG PO DAILY COPD On Take 09/03-09/04 50 MG 09/05-09/06 40 MG 09/07-09/08 30 MG 09/09-09/10 20 MG contnue taking 10 mg daily after that until see dr Palomo or Dr Zaretsky Pregabalin (Lyrica) 300 MG CAPSULE 1 CAP PO BID NERVE PAIN (Reported) Silver Sulfadiazine (Silvadene) 1 % CREAM..G. 1 KENA TOP DAILY PRN BURN ( Reported) apply to affected area(s) Tiotropium [place] (Spiriva) 18 MCG CAP.W.DEV 1 CAP INH DAILY COPD (Reported) Trazodone HCl 50 MG TABLET 1 TAB PO QPM SLEEP (Reported) Core Measures/Misc (02/01) Sepsis (View protocol) If YES complete Sepsis Event Note If YES complete Sepsis Event Note Resident Review Statement Resident Statement: examined this patient, discussed with video intern, amended to note Other Findings: 57-year-old lady with a past medical history significant for hypertension, diabetes, aortic valve replacement, COPD, obstructive sleep apnea, chronic pain, presents with right arm swelling and pain after mechanical fall from her wheelchair 2 daysa ago and is now found to have a radiological finding consistent with a commiuted right humeral head and neck fracture. SHOULDER XRAY IMPRESSION: 1. Comminuted intra-articular fracture of the right humeral head and neck. 2. No acute fracture of the right elbow. 3. No acute fracture of the right hand. 4. Deformity of the DIP joint of the right fourth finger, consistent with sequelae of previous fracture. 5. Mild degenerative changes in the right elbow joint and the DIP joints of all digits in the right hand. Impression * Humeral head/neck fracture of the right arm. * Significant Hypoglycemia as evident by accucheck readings of below 50. Possibly iatrogenic due to Levemir and Novolog use as part of patients home regimen. * History of chronic diseases; hypertension, diabetes, AVR, COPD, NISHANT, chronic pain, TBI. Plan Admit to general medicine floor Keep n.p.o. after midnight Continue D10 at 125 mils per hour for now in the context of hypoglycemic events, reduce to D5 at 75 ml/hr once blood glucose consistent above 150-180 for 2 readings. Accu-Cheks every 2-3 hrs for 3 readings than switch to q4h Levemir to be held Very low dose NovoLog sliding scale once BG stabilizes, and then re-assess scale tomorrow Pain control for the humeral fracture Orthopedic consultation for assessment of surgical intervention vs conservative management CT scan for better visualization of fracture(?), will defer to ortho. TRC/nebs DVT PPX: Enoxaparin Code status: Full code Graham Vásquez 12/29/17 1352: Core Measures/Misc (02/01) Sepsis (View protocol) If YES complete Sepsis Event Note If YES complete Sepsis Event Note Attending MD Review Statement Attending Statement Attending MD Statement: examined this patient, discuss w/resident/PA/HUMAN RESOURCES BENEFITS COORDINATOR, agreed w/resident/PA/HUMAN RESOURCES BENEFITS COORDINATOR, discussed with family, reviewed EMR data (avail) Attending Assessment/Plan: 57 year-old female with multiple co-morbidities, morbidly obese, active smoker( one pack a day since 25 years), NISHANT on Bipap, diabetes mellitus, aortic valve stenosis s/p some repari( unclear), COPD, chronic pain on methadone, TBI in 1998 presented to emergency department with a chief complaint of swelling and pain of the right arm and decreased movement since 2 days. Pt says she slept in wheen chair and it tipped over and she hurt her rt arm in the process. Pt in ER was found to have rt humeral head and neck communited fracture. Pt was also found to be hypoglycemic and her blood sugar level on initial presentation it was < 50 mg/dL and pt in Er was treated for that and was started on D10W. Rt Humeral head and neck communiuted fracture. plan is to get ortho consult and f/u on their recommendations. will get PT / OT consult. Severe hypoglycemia- pt says she was not eating over the last day prior to admission but still took all her insulin doses. Her who normally checks her bs says they have not been checking it regularly. d/w pts at bedside the care plan.
[2017-12-28] MEDS ORDERED: LINZESS290 MC1 PO (14:22)
--- NOTE | 2017-12-28 14:42 | ED AMS/SEIZURE/WEAK/DIZZY ---
History of Present Illness General Chief Complaint: Fall Stated Complaint: HUMERUS FRACTURE Source: patient, family, old records, EMS Exam Limitations: clinical condition Vital Signs & Intake/Output Vital Signs & Intake/Output Vital Signs Date Time Temp Pulse Resp B/P B/P Pulse O2 O2 Flow FiO2 Mean Ox Delivery Rate 12/28 1311 98.0 122 18 104/58 94 Nasal 3.5L Cannula 12/28 1106 98.6 137 18 93/63 94 Room Air Allergies Coded Allergies: NO KNOWN ALLERGIES (03/19/11) Reconcile Medications Albuterol Sulfate 2.5 MG/3 ML (0.083 %) VIAL.NEB 1 Vial INH/ABBEY 4 TIMES/DAY COPD (Reported) Albuterol Sulfate (Ventolin Hfa) 90 MCG HFA.AER.AD 2 PUF INH PRN COPD ( Reported) Carisoprodol 350 MG TABLET 1 TAB PO TID MUSCLE RELAXER (Reported) Fluticasone Propionate 50 MCG/ACTUATION SPRAY.SUSP 2 SPRAY NASB DAILY ALLERGIES (Reported) Fluticasone/Salmeterol (Advair 250-50 Diskus) 250 MCG-50 MCG/DOSE BLST.W.DEV 1 PUF INH BID COPD (Reported) Furosemide 80 MG TABLET 2 TAB PO QAM DIURETIC (Reported) Furosemide (Lasix) 80 MG TABLET 1 TAB PO QPM DIURETIC (Reported) Insulin Aspart (Novolog) 100 UNIT/ML VIAL 0 UNITS SC TIDAC/HS diabetes BEFORE MEALS Blood Insulin Sugar Units <80 0 81-100 13 101-120 13 121-150 13 151-200 15 201-250 17 251-300 19 301-350 21 351-400 23 >400 Call Doctor AT BEDTIME Blood Insulin Sugar Units <80 0 81-100 0 101-200 0 201-250 0 251-300 3 301-350 4 351-400 5 >400 Call Doctor Insulin Detemir (Levemir) 100 UNIT/ML VIAL 25 UNITS SC BID Diabetes Linaclotide (Linzess) 290 MCG CAPSULE 1 CAP PO DAILY CONSTIPATION (Reported) Lisinopril 20 MG TABLET 1 TAB PO DAILY BP (Reported) Metformin HCl 1,000 MG TABLET 1 TAB PO BID DM (Reported) Methadone Hydrochloride (Methadone HCl) (Unknown Strength) TABLET (Unknown Dose) PO BID PAin (Reported) Metolazone 2.5 MG TABLET 1 TAB PO 2XW DIURETIC (Reported) Oxycodone HCl 10 MG TABLET 1 TAB PO BID PAIN (Reported) Oxycodone HCl (Oxycontin) 30 MG TAB.ER.12H 1 TAB PO TID PAIN (Reported) Potassium Chloride 20 MEQ TAB.ER.PRT 1 TAB PO TID SUPPLEMENT (Reported) Prednisone 20 MG TABLET 60 MG PO DAILY COPD On Take 09/03-09/04 50 MG 09/05-09/06 40 MG 09/07-09/08 30 MG 09/09-09/10 20 MG contnue taking 10 mg daily after that until see dr Palomo or Dr Raymond Pregabalin (Lyrica) 300 MG CAPSULE 1 CAP PO BID NERVE PAIN (Reported) Tiotropium [place] (Spiriva) 18 MCG CAP.W.DEV 1 CAP INH DAILY COPD (Reported) Trazodone HCl 50 MG TABLET 1 TAB PO QPM SLEEP (Reported) Triage Note: 57 YO FEMALE TO TRIAGE FOR R[place]MOND OF R ARM PAIN, REPORTS SHE WAS IN HER WHEELCAHIR A COUPLD DAYS AGO AND IT FLIPPED ONTO THE SIDE. NOTED WITH SWELLING TO ENTIRE R ARM. PT IN PAIN MANGMENT, TAKES OXYCOTIN FOR HER PAIN. STATES IT HASNT BEEN HELPING HER. BS <50 IN TRIAGE, PER HE HAS BEEN GIVING THE PATIENT HER INSULIN BUT HASNT BEEN CHECKING HER SUGARS. PT LETHARGIC AND SLOW TO RESPIOND TO QUESTIONS IN TRIAGE, PER "SHE HAS A TBI BUT THIS SEEMS WORSE" Triage Nurses Notes Reviewed? yes Onset: 3 days Duration: day(s):, constant, continues in ED, getting worse Timing: recent history Injury Environment: home Severity: severe Modifying Factors: Worsens With: immobilization, movement, rest. LMP (ages 10-50): post menopausal : No Patient currently breastfeeds: No HPI: 3 days prior to admission patient fell in her wheelchair onto her right side. She complains of right shoulder arm pain and swelling limited range of motion severe worse with movement. Her said since this time she's been having increasing drowsiness confusion. He reports administering insulin without checking blood sugars as he did not know where the glucometer loss. She denies fever chills nausea vomiting diarrhea abdominal pain chest pain shortness breath headache dysuria rash bleeding. Past History Travel History Traveled to [place] past 21 day No Medical History Any Pertinent Medical History? see below for history Neurological: TBI EENT: NONE Cardiovascular: hypertension, hyperlipidemia Respiratory: asthma Gastrointestinal: NONE Hepatic: NONE Renal: NONE Musculoskeletal: chronic back pain Psychiatric: NONE Endocrine: diabetes Blood Disorders: NONE Cancer(s): NONE History of MRSA: No History of VRE: No History of CDIFF: No Tetanus Vaccine: 08/23/14 Surgical History Surgical History: non-contributory Psychosocial History What is your primary language Romanian Tobacco Use: Current Daily Use Daily Tobacco Use Amount/Type: => 5 Cigarettes daily Family History Hx Contributory? No Review of Systems Review of Systems Constitutional: Reports: see HPI, weakness. EENTM: Reports: no symptoms. Respiratory: Reports: no symptoms. Cardiovascular: Reports: no symptoms. GI: Reports: no symptoms. Genitourinary: Reports: no symptoms. Musculoskeletal: Reports: see HPI, joint pain. Skin: Reports: no symptoms. Neurological/Psychological: Reports: no symptoms. Hematologic/Endocrine: Reports: no symptoms. Immunologic/Allergic: Reports: no symptoms. All Other Systems: Reviewed and Negative Physical Exam Physical Exam General Appearance: well developed/nourished, alert, anxious, severe distress, obese Head: atraumatic, normal appearance Eyes: Bilateral: normal appearance, PERRL, EOMI. Ears, Nose, Throat: normal pharynx, normal ENT inspection, hearing grossly normal Neck: normal inspection, supple, full range of motion, no midline tenderness Respiratory: normal breath sounds, chest non-tender, no respiratory distress, quiet respiration, lungs clear Cardiovascular: regular rate/rhythm, normal peripheral pulses, norml femoral pulses equa Peripheral Pulses: 4+ carotid (R), 4+ carotid (L) Gastrointestinal: normal bowel sounds, soft, non-tender, no organomegaly Back: normal inspection, normal range of motion, no vertebral tenderness Extremities: evidence of injury, bony-point tenderness, limited range of motion, tenderness Neurologic/Psych: awake, alert, direct casting operator II-XII nml as tested Reflexes: 2+: bicep (R), bicep (L). Skin: intact, ecchymosis Lymphatic: no anterior cervical libby Core Measures ACS in differential dx? No CVA/TIA Diagnosis No Sepsis Present: No Sepsis Focused Exam Completed? No Progress Differential Diagnosis: CVA/stroke, dehydration, drug intoxication, electrolyte imbalance, hypoxia Plan of Care: Orders Procedure Date/time Status Consistent Carbohydrate 2 12/28 D Active Pathway - chart 12/28 1456 Active House Staff 12/28 1456 Active LACTIC ACID 12/28 1412 Active Patient Data 12/28 1408 Active OXYGEN SETUP (GEN) 12/28 1349 Active Saline Lock 12/28 1349 Active Admit to inpatient 12/28 1349 Active Vital Signs 12/28 1349 Active Activity/Ambulation 12/28 1349 Active Code Status 12/28 1349 Active Durable Medical Equipment 12/28 1303 Active Intake & Output 12/28 1302 Active FingerStick- Glucose 12/28 1113 Active URINE DRUG SCREEN FOR ER ONLY 12/28 1112 Active URINALYSIS 12/28 1112 Active TROPONIN LEVEL 12/28 1112 Complete PARTIAL THROMBOPLASTIN TIME 12/28 1112 Complete PROTHROMBIN TIME 12/28 1112 Complete MAGNESIUM 12/28 1112 Complete LACTIC ACID 12/28 1112 Complete ETHANOL 12/28 1112 Complete COMPREHENSIVE METABOLIC PANEL 12/28 1112 Complete CBC WITHOUT DIFFERENTIAL 12/28 1112 Complete EKG 12/28 1112 Active VTE Mechanical Prophylaxis 12/28 UNK Active Current Medications Sig/Zeyad Start time Last Medication Dose Stop Time Status Admin Enoxaparin Sodium 40 MG DAILY 12/29 0900 UNVr (Lovenox) Dextrose/Water 1,000 ML .Q8H 12/28 1415 AC 12/28 (Dextrose 10%) 1432 Laboratory Tests 12/28/17 1158: Anion Gap 6, Estimated GFR > 60, BUN/Creatinine Ratio 26.7 H, Glucose 36 *L, Lactic Acid 1.6, Calcium 8.7, Magnesium 1.7, Total Bilirubin 0.4, AST 67 H, ALT 64 H, Alkaline Phosphatase 70, Troponin I 0.03, Total Protein 6.4, Albumin 3.4 L, Globulin 3.0, Albumin/Globulin Ratio 1.1, PT 14.4 H, INR 1.32 H, APTT 24 L , CBC w Diff NO MAN DIFF REQ, RBC 4.13 L, MCV 85.4, MCH 28.1, MCHC 32.9 L, RDW 15.4 H, MPV 8.1, Gran % 82.1 H, Lymphocytes % 9.0 L, Monocytes % 7.8, Eosinophils % 1.0, Basophils % 0.1, Absolute Granulocytes 7.0 H, Absolute Lymphocytes 0.8 L, Absolute Monocytes 0.7 H, Absolute Eosinophils 0.1, Absolute Basophils 0, Serum Alcohol < 10.0 Diagnostic Imaging: Viewed by Me: Radiology Read, CT Scan. Discussed w/RAD: Radiology Read, CT Scan. Radiology Impression: 1. Comminuted intra-articular fracture of the right humeral head and neck. 2. No acute fracture of the right elbow. 3. No acute fracture of the right hand. 4. Deformity of the DIP joint of the right fourth finger, consistent with sequelae of previous fracture. 5. Mild degenerative changes in the right elbow joint and the DIP joints of all digits in the right hand., 1. Question of subtle nondisplaced and angulated fracture of the right posterior ninth rib. Comminuted nondisplaced fracture of the right humeral head and neck. 2. No evidence of right-sided pneumothorax or pleural effusion. 3. No definite mediastinal injury is seen, though evaluation is limited by noncontrast exam. 4. Stable 3 mm solid noncalcified nodules in the right upper lobe and right lower lobe, unchanged since 08/29/2016, favoring a benign etiology. Per the Fleischner criteria, no further follow-up is required, unless otherwise indicated clinically. 5. Probable small focus of mucous plugging within the lateral segmental airway in the right middle lobe. Initial ED EKG: RBBB, no ST T wave changes, sinus tachycardia Prior EKG: changed (now complete RBBB) Rhythm Strip: sinus tachycardia Departure Departure Disposition: STILL A PATIENT Condition: Stable Clinical Impression Primary Impression: Hypoglycemia due to insulin Secondary Impressions: Humerus fracture, Rib fracture Referrals: Sangeeta NORTH,Adin Allen (PCP/Family) Departure Forms: Customer Survey General Discharge Information Admission Note Spoke With: Graham Vásquez MD Documentation of Exam: Documentation of any treatments & extenuating circumstances including Concerns Regarding Discharge (functional status, medication knowledge or non-compliance, living conditions, etc.) that warrant an admission rather than observation: Serial fingerstick blood sugar endocrinology evaluation with repeat evaluation shoulder immobilizer analgesia IV dextrose medication adjustment physical therapy continuing care discharge planning for likely rehabilitation placement
[2017-12-28] MEDS ORDERED: SILVADENE20 GM TOP (15:27)
--- NOTE | 2017-12-28 22:31 | CT SCAN REPORT ---
EXAMINATION: CT UPPER EXTREMITY WITHOUT CONTRAST, RIGHT CLINICAL INFORMATION: Swelling and pain of right shoulder. Comminuted intra-articular fracture of the humeral head. COMPARISON: Radiograph from 12/28/2017. TECHNIQUE: Multidetector volumetric imaging of the right upper extremity targeting the shoulder was performed without IV contrast. Coronal and sagittal reformatted images were obtained and reviewed. DLP: 632 mGy-cm FINDINGS: There is a comminuted right humeral head fracture. The fracture line extends intra-articular with the glenohumeral joint inferiorly. No significant disruption of the articular surface. There is a greater tuberosity fracture fragment which displaced superiorly by approximately 0.5 cm. Mild impaction along the humeral neck torsion of the fracture. Mild posterior angulation. The glenohumeral joint remains aligned. The acromioclavicular joint is intact. Mild degenerative changes are seen at both. The visualized ribs are intact. The visualized lung is clear. Soft tissue swelling is seen at the fracture site. Multiple tiny ossific fragments are seen within the glenohumeral joint space. IMPRESSION: Comminuted intra-articular humeral head fracture with mild impaction at the humeral neck and minimal displacement of the greater tuberosity fragment. No dislocation.
[2017-12-29 02:30] VITALS: BP 122/70
[2017-12-29 06:10] VITALS: BP 144/92
--- NOTE | 2017-12-29 07:55 | PN- Housestaff ---
Ramses Kwan 12/29/17 0752: Subjective Follow-up For: Hypoglycemia, right humeral head fracture Subjective: Patient seen and examined in bed. She is concerned about her n.p.o. order. She says she want to eat some food. She also concerned about pain medication. According to her she was taking 30 mg oxycodone 3 times a day and then 20 mg oxycodone 2 times a day. She also concerned about her methadone dose. She complaining pain in her right shoulder and muscle spasm. She denies fever, chills, chest pain, palpitation, shortness of breath, diarrhea , burning micturition. Review of Systems Constitutional: Reports: see HPI. Objective Last 24 Hrs of Vital Signs/I&O Vital Signs Date Time Temp Pulse Resp B/P B/P Pulse O2 O2 Flow FiO2 Mean Ox Delivery Rate 12/29 1437 98.5 125 22 150/90 93 Nasal Cannula 12/29 1010 Nasal 5.0L Cannula 12/29 1009 93 Nasal 5.0L Cannula 12/29 0800 Nasal 5.0L Cannula 12/29 0610 98.7 126 20 144/92 92 12/29 0251 126 96 12/29 0230 100 CPAP 4.0L 12/29 0230 98.1 126 22 122/70 100 12/29 0025 128 100 12/28 1907 98.0 116 22 101/61 97 Nasal 4.0L Cannula 12/28 1702 98.2 122 16 99/54 97 Nasal 4.0L Cannula Intake & Output 12/29 1600 12/29 0800 12/29 0000 Intake Total 300 Output Total 350 1000 Balance -350 -700 Intake, IV 200 Intake, Oral 100 Number 0 Bowel Movements Output, Urine 350 1000 Patient 295 lb Weight Weight Bed scale Measurement Method Physical Exam General Appearance: Alert, Oriented X3, Cooperative, Mild Distress Assessment/Plan Assessment: 57-year-old female morbidities, active smoker(one pack a day since 25 years), with past medical history of diabetes mellitus, aortic valve stenosis, NISHANT(BiPAP ), COPD, chronic pain on methadone, TBI in 1998 presented to emergency department with a chief complaint of swelling and pain of the right arm, decreased movement since 2 days. Her swelling in the right arm started after she tripped on the floor and felt on ground on the right side, she denies any history of unconsciousness, bleeding, numbness and right hand. She had a sling on the right hand. She also having low blood sugar level initial presentation it was 50 mg/dL. Problems list: = Right humerus head intra-articular fracture: = Hypoglycemic episodes = COPD = Diabetes mellitus =Plan: =Orthopedic consult placed. I spoke with orthopedic agriculture consultant by myself, she recommended that there is no need of intervention now, they advise CT scan of the right shoulder. CT scan having the same changes on the right humeral head intra-articular fracture. =Hypoglycemic episode: Patient hypoglycemia may be due to the wrong dose of insulin administration. We will keep checking her sugar level every 2 hourly for 6 hours and then every 4 hourly till morning to look for any hypoglycemic episodes. But now her sugars 86 and normal = Pain medication started. I spoke with the pharmacy this morning and adjust his dose accordingly, = Admit the patient to general medicine floor. =NovoLog sliding scale once blood sugar stabilizes, and then re-assess tomorrow =Pain control for the humeral fracture =TRC/nebs =DVT PPX: Enoxaparin =Code status: Full code Problem List: 1. Fall at home 2. Humerus fracture 3. COPD (chronic obstructive pulmonary disease) Pain Ratin Pain Location: Backache/body aches Pain Goal: Remain pain free Pain Plan: Pain medication Tomorrow's Labs & Rationales: n/a Graham Vásquez 12/29/17 1608: Attending MD Review Statement Attending Statement Attending MD Statement: examined this patient, discuss w/resident/PA/PET STYLIST, agreed w/resident/PA/PET STYLIST, reviewed EMR data (avail), discussed with nursing, discussed with case mgmt Attending Assessment/Plan: 57 year-old female with multiple co-morbidities, morbidly obese, active smoker( one pack a day since 25 years), NISHANT on Bipap, diabetes mellitus, aortic valve stenosis s/p some repari( unclear), COPD, chronic pain on methadone, TBI in 1998 presented to emergency department with a chief complaint of swelling and pain of the right arm and decreased movement since 2 days. Pt says she slept in wheen chair and it tipped over and she hurt her rt arm in the process. Pt in ER was found to have rt humeral head and neck communited fracture. Pt was also found to be hypoglycemic and her blood sugar level on initial presentation it was < 50 mg/dL and pt in Er was treated for that and was started on D10W. Rt Humeral head and neck communiuted fracture. f/u on official ortho consult and f/u on their recommendations. will get PT / OT consult. Severe hypoglycemia- resolved. dc D5W and will get endocrine consult . d/w pt the care plan.
[2017-12-29 08:35] LABS: ABSOLUTE BASOPHIL COUNT 0 /CUMM (0.0-0.2); ABSOLUTE EOSINOPHIL COUNT 0.3 /CUMM (0.0-0.7); ABSOLUTE GRANULOCYTE CT 4.8 /CUMM (1.4-6.5); ABSOLUTE LYMPH COUNT 0.9 /CUMM (1.2-3.4); ABSOLUTE MONOCYTE COUNT 0.7 /CUMM (0.10-0.60); BASOPHIL % 0.5 % (0.0-2.0); EOSINOPHIL % 4.4 % (0-5); HEMATOCRIT 34.3 % (37-47); MEAN CORPUSCULAR HGB CONC 32.9 G/DL (33.0-37.0); MEAN CORPUSCULAR VOLUME 85.2 FL (81.0-99.0); MEAN PLATELET VOLUME 8.6 FL (7.4-10.4); PLATELET COUNT 241 /CUMM (130-400); RBC DISTRIBUTION WIDTH 15.7 % (11.5-14.5); RED BLOOD CELL CT 4.02 /CUMM (4.20-5.40); WHITE BLOOD CELL COUNT 6.8 /CUMM (4.8-10.8)
--- NOTE | 2017-12-29 13:50 | Admission Certification ---
Admission Certification Certification Statement - As attending physician, I certify that at the time of - admission, based on clinical presentation, severity of - symptoms, need for further diagnostic testing and - therapeutic interventions, and risk of adverse outcomes - without in-hospital treatment, in my clinical assessment, - this patient requires an acute hospital stay for a minimum - of two nights or longer. I have also considered psychsocial - factors such as support system, advanced age, financial - issues, cognitive issues, and failed out-patient treatments, - past re-admission history, safety of patient, and lack of - compliance as applicable. Specific rationale supporting this admission is: rt humeral head and neck communited fracture. Severe hypoglycemia.
[2017-12-29 14:37] VITALS: BP 150/90
--- NOTE | 2017-12-29 17:30 | Cons- Orthopedic ---
General Information and HPI Consulting Request Date of Consult: 12/29/17 Requested By: Anayeli Orr MD Reason for Consult: Right proximal humerus fracture Source of Information: patient History of Present Illness: 57yo RHD female with a history of chronic pain on methadone, morbid obesity, DM, aortic stenosis, NISHANT, COPD, and TBI presents with right shoulder pain and right upper extremity swelling after a fall 3 days ago. Her believes she fell out of her wheelchair due to low blood sugar. She was evaluated in the ED, where xrays showed a comminuted intra-articular fracture of the right proximal humerus. She was given a sling for the right upper extremity and admitted for pain control and hypoglycemia. Allergies/Medications Allergies: Coded Allergies: NO KNOWN ALLERGIES (03/19/11) Home Med List: Albuterol Sulfate 2.5 MG/3 ML (0.083 %) VIAL.NEB 1 Vial INH/ABBEY 4 TIMES/DAY COPD (Reported) Albuterol Sulfate (Ventolin Hfa) 90 MCG HFA.AER.AD 2 PUF INH PRN COPD ( Reported) Carisoprodol 350 MG TABLET 1 TAB PO TID MUSCLE RELAXER (Reported) Fluticasone Propionate 50 MCG/ACTUATION SPRAY.SUSP 2 SPRAY NASB DAILY ALLERGIES (Reported) Fluticasone/Salmeterol (Advair 250-50 Diskus) 250 MCG-50 MCG/DOSE BLST.W.DEV 1 PUF INH BID COPD (Reported) Furosemide 80 MG TABLET 2 TAB PO QAM DIURETIC (Reported) Furosemide (Lasix) 80 MG TABLET 1 TAB PO QPM DIURETIC (Reported) Insulin Aspart (Novolog) 100 UNIT/ML VIAL 0 UNITS SC TIDAC/HS diabetes BEFORE MEALS Blood Insulin Sugar Units <80 0 81-100 13 101-120 13 121-150 13 151-200 15 201-250 17 251-300 19 301-350 21 351-400 23 >400 Call Doctor AT BEDTIME Blood Insulin Sugar Units <80 0 81-100 0 101-200 0 201-250 0 251-300 3 301-350 4 351-400 5 >400 Call Doctor Insulin Detemir (Levemir) 100 UNIT/ML VIAL 25 UNITS SC BID Diabetes Linaclotide (Linzess) 290 MCG CAPSULE 1 CAP PO DAILY CONSTIPATION (Reported) Lisinopril 20 MG TABLET 1 TAB PO DAILY BP (Reported) Metformin HCl 1,000 MG TABLET 1 TAB PO BID DM (Reported) Methadone Hydrochloride (Methadone HCl) (Unknown Strength) TABLET (Unknown Dose) PO BID PAin (Reported) Metolazone 2.5 MG TABLET 1 TAB PO 2XW DIURETIC (Reported) Oxycodone HCl 10 MG TABLET 1 TAB PO BID PAIN (Reported) Oxycodone HCl (Oxycontin) 30 MG TAB.ER.12H 1 TAB PO TID PAIN (Reported) Potassium Chloride 20 MEQ TAB.ER.PRT 1 TAB PO TID SUPPLEMENT (Reported) Prednisone 20 MG TABLET 60 MG PO DAILY COPD On Take 09/03-09/04 50 MG 09/05-09/06 40 MG 09/07-09/08 30 MG 09/09-09/10 20 MG contnue taking 10 mg daily after that until see dr Palomo or Dr Raymond Pregabalin (Lyrica) 300 MG CAPSULE 1 CAP PO BID NERVE PAIN (Reported) Silver Sulfadiazine (Silvadene) 1 % CREAM..G. 1 KENA TOP DAILY PRN BURN ( Reported) apply to affected area(s) Tiotropium Hortense (Spiriva) 18 MCG CAP.W.DEV 1 CAP INH DAILY COPD (Reported) Trazodone HCl 50 MG TABLET 1 TAB PO QPM SLEEP (Reported) Current Medications: Current Medications Sig/Zeyad Start time Last Medication Dose Route Stop Time Status Admin Acetaminophen 650 MG Q6P PRN 12/28 1900 AC PO Acetaminophen 1,000 MG Q6P PRN 12/28 1900 AC 12/29 IV 1555 Albuterol Sulfate 3 ML EVERY 4 HRS/AWAKE 12/29 1600 AC 12/29 INH 1636 Albuterol Sulfate 3 ML EVERY 4 HRS/AWAKE 12/29 1200 DC 12/29 INH 1221 Carisoprodol 350 MG TID 12/29 1400 AC 12/29 PO 1422 Dextrose/Sodium 1,000 ML Q13H 12/28 2215 DC 12/28 Chloride IV 12/30 0014 2250 Dextrose/Water 1,000 ML .Q8H 12/28 1415 DC 12/28 IV 1432 Enoxaparin Sodium 40 MG DAILY 12/29 0900 AC 12/29 SC 0903 Fluticasone 2 SPRAY DAILY 12/31 1100 DC Propionate JOSELO Fluticasone 2 SPRAY DAILY 12/29 1415 AC 12/29 Propionate JOSELO 1422 Insulin Aspart 0 TIDAC 12/29 1200 AC 12/29 SC 1643 Insulin Detemir 25 UNITS BID 12/29 2100 AC SC Insulin Detemir 23 UNITS ONCE ONE 12/29 1345 CAN SC 12/29 1346 Insulin Human Regular 0 Q6 12/28 2359 DC SC Lidocaine 1 PAT Q24H 12/29 1545 AC TOP Methadone HCl 10 MG Q6P PRN 12/29 1415 AC 12/29 PO 1556 Methadone HCl 30 MG ONCE ONE 12/29 0830 DC 12/29 PO 12/29 0831 0903 Oxycodone HCl 30 MG Q12H 12/29 1700 DC PO Oxycodone HCl 30 MG Q8H 12/29 1415 AC 12/29 PO 1422 Oxycodone HCl 0 .STK-MED ONE 12/29 0600 DC PO Oxycodone HCl 30 MG ONCE ONE 12/29 0545 DC 12/29 PO 12/29 0546 0612 Oxycodone HCl 0 .STK-MED ONE 12/28 2010 DC PO Oxycodone HCl 10 MG Q6P PRN 12/28 1900 AC 12/29 PO 1643 Sodium Chloride 2 SPRAY Q4P PRN 12/29 0445 AC JOSELO Past History Medical History Blood Transfusion Hx: Yes Neurological: TBI EENT: NONE Cardiovascular: aortic stenosis, hypertension, hyperlipidemia Respiratory: COPD Gastrointestinal: constipation Hepatic: NONE Renal: NONE Musculoskeletal: chronic back pain, spinal stenosis Psychiatric: NONE Endocrine: diabetes Blood Disorders: NONE Cancer(s): NONE WAREHOUSE ASSOCIATE/Reproductive: NONE Surgical History Pertinent Surgical History: OPEN HEART/SPINAL INPLANT Psychosocial History Where Do You Live? Home Who Do You Live With? spouse Services at Home: None Smoking Status: Current Everyday Smoker Functional Ability Ambulation: cane Exam & Diagnostic Data Vital Signs and I&O Vital Signs Date Time Temp Pulse Resp B/P B/P Pulse O2 O2 Flow FiO2 Mean Ox Delivery Rate 12/29 1702 Nasal 4.0L Cannula 12/29 1640 96 Nasal 4.0L Cannula 12/29 1437 98.5 125 22 150/90 93 Nasal Cannula 12/29 1010 Nasal 5.0L Cannula 12/29 1009 93 Nasal 5.0L Cannula 12/29 0800 Nasal 5.0L Cannula 12/29 0610 98.7 126 20 144/92 92 12/29 0251 126 96 12/29 0230 100 CPAP 4.0L 12/29 0230 98.1 126 22 122/70 100 12/29 0025 128 100 12/28 1907 98.0 116 22 101/61 97 Nasal 4.0L Cannula Intake & Output 12/29 0812/29 0000 12/28 1600 12/28 0000 Intake Total 775 300 Output Total 350 1000 Balance 425 -700 Intake, IV 75 200 Intake, Oral 700 100 Number 0 Bowel Movements Output, Urine 350 1000 Patient 295 lb Weight Weight Bed scale Measurement Method Physical Exam: Alert, oriented, uncomfortable; at bedside. Right Upper Extremity: Sling to right upper extremity; ice packs to right shoulder Skin intact, no lacerations or abrasions Ecchymosis over right shoulder and upper arm Diffuse swelling of the right upper arm, including in hand and fingers SILT over RUE in the Axillary, median, radial, and ulnar nerve distributions Hand warm and well-perfused; palpable radial pulse. Last 24 Hours of Labs: Laboratory Tests 12/29 12/29 12/29 1611 0741 0600 Chemistry Sodium Pending Potassium Pending Chloride Pending Carbon Dioxide Pending Anion Gap Pending BUN Pending Creatinine Pending BUN/Creatinine Ratio Pending Hemoglobin A1c (4.2 - 5.8 %) 8.3 H Hematology CBC w Diff NO MAN DIFF REQ WBC (4.8 - 10.8 /CUMM) 6.8 RBC (4.20 - 5.40 /CUMM) 4.02 L Hgb (12.0 - 16.0 G/DL) 11.3 L Hct (37 - 47 %) 34.3 L MCV (81.0 - 99.0 FL) 85.2 MCH (27.0 - 31.0 PG) 28.0 MCHC (33.0 - 37.0 G/DL) 32.9 L RDW (11.5 - 14.5 %) 15.7 H Plt Count (130 - 400 /CUMM) 241 MPV (7.4 - 10.4 FL) 8.6 Gran % (42.2 - 75.2 %) 71.0 Lymphocytes % (20.5 - 51.1 %) 13.2 L Monocytes % (1.7 - 9.3 %) 10.9 H Eosinophils % (0 - 5 %) 4.4 Basophils % (0.0 - 2.0 %) 0.5 Absolute Granulocytes (1.4 - 6.5 /CUMM) 4.8 Absolute Lymphocytes (1.2 - 3.4 /CUMM) 0.9 L Absolute Monocytes (0.10 - 0.60 /CUMM) 0.7 H Absolute Eosinophils (0.0 - 0.7 /CUMM) 0.3 Absolute Basophils (0.0 - 0.2 /CUMM) 0 Imaging Results: XR right shoulder (, 12/28/17): "1. Comminuted intra-articular fracture of the right humeral head and neck. 2. No acute fracture of the right elbow. 3. No acute fracture of the right hand. 4. Deformity of the DIP joint of the right fourth finger, consistent with sequelae of previous fracture. 5. Mild degenerative changes in the right elbow joint and the DIP joints of all digits in the right hand." CT right shoulder (, 12/28/17): "Comminuted intra-articular humeral head fracture with mild impaction at the humeral neck and minimal displacement of the greater tuberosity fragment. No dislocation." Assessment/Plan Assessment/Plan 57yo RHD female with multiple medical comorbidities presents with comminuted but minimally displaced proximal humerus fracture s/p fall at home, possibly secondary to hypoglycemic episode. 1. NWB right upper extremity; sling when sitting up or ambulating. 2. Ice to right shoulder 3. Elevation of hand on pillows as tolerated to minimize edema. 4. Pain control 5. Medical management of patient's comorbidities; including blood glucose. Plan for non-operative management of patient's right proximal humerus fracture. Given the minimal displacement of her fractures and her other medical comorbities, strongly recommend conservative treatment. Patient may follow up in the office in 2wks for reevaluation and repeat xrays. Consult Acknowledgment - Thank you for your consult request. Attending MD Review Statement Attending Statement Attending MD Statement: examined this patient, discuss w/resident/PA/EMERGENCY PREPAREDNESS MANAGER, discussed with family, reviewed images
[2017-12-29 21:40] VITALS: BP 148/84
[2017-12-30 05:38] VITALS: BP 138/78
--- NOTE | 2017-12-30 08:07 | PN- Housestaff ---
Ramses Kwan 12/30/17 0806: Subjective Follow-up For: Follow up for hypoglycemia, Fracture of right femur head Subjective: Patient seen and examined at bed today. He is complaining of pain and want to increase her pain medication does, she is not compliant and she removed the sling from her right side. She denies fever, chills, chest pain, palpitation, abdominal pain, loose motion, constipation, burning micturition. Review of Systems Constitutional: Reports: see HPI. Objective Last 24 Hrs of Vital Signs/I&O Vital Signs Date Time Temp Pulse Resp B/P B/P Pulse O2 O2 Flow FiO2 Mean Ox Delivery Rate 12/30 1433 98.2 126 21 142/75 95 Nasal Cannula 12/30 1055 Nasal 4.0L Cannula 12/30 1043 Nasal 4.0L Cannula 12/30 0822 92 Nasal 4.0L Cannula 12/30 0800 Nasal 5.0L Cannula 12/30 0538 98.5 124 22 138/78 96 Nasal 3.0L Cannula 12/30 0035 82 98 12/30 0000 Nasal 5.0L Cannula 12/29 2309 95 Nasal 4.0L Cannula 12/29 2140 98.5 112 22 148/84 96 Nasal Cannula 12/29 2037 94 Nasal 4.0L Cannula 12/29 1702 Nasal 4.0L Cannula 12/29 1640 96 Nasal 4.0L Cannula Intake & Output 12/30 1600 12/30 0800 12/30 0000 Intake Total 360 400 340 Output Total 550 600 Balance -190 400 -260 Intake, IV 100 Intake, Oral 360 400 240 Number 4 1 Bowel Movements Output, Urine 550 600 Physical Exam General Appearance: Alert, Oriented X3, Mild Distress Assessment/Plan Assessment: 57-year-old female morbidities, active smoker(one pack a day since 25 years), with past medical history of diabetes mellitus, aortic valve stenosis, NISHANT(BiPAP ), COPD, chronic pain on methadone, TBI in 1998 presented to emergency department with a chief complaint of swelling and pain of the right arm, decreased movement since 2 days. Her swelling in the right arm started after she tripped on the floor and felt on ground on the right side, she denies any history of unconsciousness, bleeding, numbness and right hand. She had a sling on the right hand. She also having low blood sugar level initial presentation it was 50 mg/dL. Problems list: = Right humerus head intra-articular fracture: = Hypoglycemic episodes = COPD = Diabetes mellitus =Plan: =Orthopedic consult placed. Orthopedic advise conservative management due to her multiple comorbidities and will follow up after 2 weeks with fresh x-ray. Patient is not cooperative he is complaining to increase his pain medication dose, which is already high-dose. She also not bearing sling on her right hand. She is not compliant. =Hypoglycemic episode: Patient hypoglycemia may be due to the wrong dose of insulin administration. We will keep checking her sugar level every 2 hourly for 6 hours and then every 4 hourly till morning to look for any hypoglycemic episodes. But now her sugars 86 and normal. I placed geothermal installer consultation he will come and see the patient today. = Pain medication started. I spoke with the pharmacy this morning and adjust his dose accordingly, = Admit the patient to general medicine floor. =NovoLog sliding scale once blood sugar stabilizes, and then re-assess tomorrow =Pain control for the humeral fracture =TRC/nebs =DVT PPX: Enoxaparin =Code status: Full code Problem List: 1. Humerus fracture Pain Ratin Pain Location: Right shoulder bake, Pain Goal: Remain pain free Pain Plan: Pain medication Tomorrow's Labs & Rationales: Fasting blood sugar Anayeli Orr 12/30/17 1223: Attending MD Review Statement Attending Statement Attending MD Statement: examined this patient, discuss w/resident/PA/MBA INTERN, agreed w/resident/PA/MBA INTERN, discussed with family, reviewed EMR data (avail), discussed with nursing, discussed with case mgmt, reviewed images, amended to note Attending Assessment/Plan: 57 year-old female with multiple co-morbidities, morbidly obese, active smoker( one pack a day since 25 years), NISHANT on Bipap, diabetes mellitus, aortic valve stenosis s/p some repair( unclear), COPD, chronic pain on methadone, TBI in 1998 presented to emergency department with a chief complaint of swelling and pain of the right arm and decreased movement since 2 days. Pt says she slept in wheen chair and it tipped over and she hurt her rt arm in the process. Pt in ER was found to have rt humeral head and neck communited fracture. Overnight non coperaitve with sling placement. Vital stable. C/o Pain in right shoulder. Rt Humeral head and neck communiuted fracture. Ortho consulted and f/u on their recommendations. F/u PT / OT consult. Severe hypoglycemia- pending endocrine consult. Pain management: c/w home regimen. Ask pain management consult or call. d/w pt the care plan.
[2017-12-30 14:33] VITALS: BP 142/75
--- NOTE | 2017-12-30 17:50 | Cons- Endocrinology ---
General Information and HPI Consulting Request Date of Consult: 12/30/17 Requested By: MEDICAL TEAM Reason for Consult: uncontrolled diabetes and hypoglycemia Source of Information: patient, old records Exam Limitations: poor historian History of Present Illness: This 57-year-old woman has a known history of diabetes type 2 associated with morbid obesity. She was taking Levemir 25 units twice a day at home. In addition she states she was using NovoLog 50 units before breakfast, 30 units before lunch, and 30 units before dinner. The patient is on prednisone at home 60 mg once a day. She was subject to frequent hypoglycemia. When she came to the emergency room her blood sugar was only 36. The patient is usually wheelchair bound at home. She states she had a scooter but it broke down and she was using the wheelchair every day. Apparently she fell out of her wheelchair and fractured her right arm. Allergies/Medications Allergies: Coded Allergies: NO KNOWN ALLERGIES (03/19/11) Home Med List: Albuterol Sulfate 2.5 MG/3 ML (0.083 %) VIAL.NEB 1 Vial INH/ABBEY 4 TIMES/DAY COPD (Reported) Albuterol Sulfate (Ventolin Hfa) 90 MCG HFA.AER.AD 2 PUF INH PRN COPD ( Reported) Carisoprodol 350 MG TABLET 1 TAB PO TID MUSCLE RELAXER (Reported) Fluticasone Propionate 50 MCG/ACTUATION SPRAY.SUSP 2 SPRAY NASB DAILY ALLERGIES (Reported) Fluticasone/Salmeterol (Advair 250-50 Diskus) 250 MCG-50 MCG/DOSE BLST.W.DEV 1 PUF INH BID COPD (Reported) Furosemide 80 MG TABLET 2 TAB PO QAM DIURETIC (Reported) Furosemide (Lasix) 80 MG TABLET 1 TAB PO QPM DIURETIC (Reported) Insulin Aspart (Novolog) 100 UNIT/ML VIAL 0 UNITS SC TIDAC/HS diabetes BEFORE MEALS Blood Insulin Sugar Units <80 0 81-100 13 101-120 13 121-150 13 151-200 15 201-250 17 251-300 19 301-350 21 351-400 23 >400 Call Doctor AT BEDTIME Blood Insulin Sugar Units <80 0 81-100 0 101-200 0 201-250 0 251-300 3 301-350 4 351-400 5 >400 Call Doctor Insulin Detemir (Levemir) 100 UNIT/ML VIAL 25 UNITS SC BID Diabetes Linaclotide (Linzess) 290 MCG CAPSULE 1 CAP PO DAILY CONSTIPATION (Reported) Lisinopril 20 MG TABLET 1 TAB PO DAILY BP (Reported) Metformin HCl 1,000 MG TABLET 1 TAB PO BID DM (Reported) Methadone Hydrochloride (Methadone HCl) (Unknown Strength) TABLET (Unknown Dose) PO BID PAin (Reported) Metolazone 2.5 MG TABLET 1 TAB PO 2XW DIURETIC (Reported) Oxycodone HCl 10 MG TABLET 1 TAB PO BID PAIN (Reported) Oxycodone HCl (Oxycontin) 30 MG TAB.ER.12H 1 TAB PO TID PAIN (Reported) Potassium Chloride 20 MEQ TAB.ER.PRT 1 TAB PO TID SUPPLEMENT (Reported) Prednisone 20 MG TABLET 60 MG PO DAILY COPD On Take 09/03-09/04 50 MG 09/05-09/06 40 MG 09/07-09/08 30 MG 09/09-09/10 20 MG contnue taking 10 mg daily after that until see dr Palomo or Dr Raymond Pregabalin (Lyrica) 300 MG CAPSULE 1 CAP PO BID NERVE PAIN (Reported) Silver Sulfadiazine (Silvadene) 1 % CREAM..G. 1 KENA TOP DAILY PRN BURN ( Reported) apply to affected area(s) Tiotropium Blackwell (Spiriva) 18 MCG CAP.W.DEV 1 CAP INH DAILY COPD (Reported) Trazodone HCl 50 MG TABLET 1 TAB PO QPM SLEEP (Reported) Review of Systems Review of Systems Constitutional: Reports: weakness. Cardiovascular: Denies: chest pain. Respiratory: Reports: short of breath. GI: Denies: abdominal pain, nausea, vomiting. Past History Travel History Traveled to [place] past 21 day No Medical History Blood Transfusion Hx: Yes Neurological: TBI EENT: NONE Cardiovascular: aortic stenosis, hypertension, hyperlipidemia Respiratory: COPD Gastrointestinal: constipation Hepatic: NONE Renal: NONE Musculoskeletal: chronic back pain, spinal stenosis Psychiatric: NONE Endocrine: diabetes Blood Disorders: NONE Cancer(s): NONE TEST INSPECTION ENGINEER/Reproductive: NONE Surgical History Surgical History: OPEN HEART/SPINAL INPLANT Psychosocial History Where Do You Live? Home Who Do You Live With? spouse Services at Home: None Smoking Status: Current Everyday Smoker Functional Ability Ambulation: cane Exam & Diagnostic Data Last 24 Hrs of Vital Signs/I&O Vital Signs Date Time Temp Pulse Resp B/P B/P Pulse O2 O2 Flow FiO2 Mean Ox Delivery Rate 12/30 1710 98 Nasal 4.5L Cannula 12/30 1433 98.2 126 21 142/75 95 Nasal Cannula 12/30 1055 Nasal 4.0L Cannula 12/30 1043 Nasal 4.0L Cannula 12/30 0822 92 Nasal 4.0L Cannula 12/30 0800 Nasal 5.0L Cannula 12/30 0538 98.5 124 22 138/78 96 Nasal 3.0L Cannula 12/30 0035 82 98 08 0000 Nasal 5.0L Cannula 12/29 2309 95 Nasal 4.0L Cannula 12/29 2140 98.5 112 22 148/84 96 Nasal Cannula 12/29 203 94 Nasal 4.0L Cannula Intake & Output 12/30 1600 12/30 0800 12/30 0000 Intake Total 360 400 340 Output Total 550 600 Balance -190 400 -260 Intake, IV 100 Intake, Oral 360 400 240 Number 4 1 Bowel Movements Output, Urine 550 600 Vital Signs Date Time Temp Pulse Resp B/P B/P Pulse O2 O2 Flow FiO2 Mean Ox Delivery Rate 12/30 1710 98 Nasal 4.5L Cannula 12/30 1433 98.2 126 21 142/75 95 Nasal Cannula 12/30 1055 Nasal 4.0L Cannula 12/30 1043 Nasal 4.0L Cannula 12/30 0822 92 Nasal 4.0L Cannula 12/30 0800 Nasal 5.0L Cannula 12/30 0538 98.5 124 22 138/78 96 Nasal 3.0L Cannula 12/30 0035 82 98 08/ 0000 Nasal 5.0L Cannula 12/29 2309 95 Nasal 4.0L Cannula 12/29 2140 98.5 112 22 148/84 96 Nasal Cannula 12/29 2036 94 Nasal 4.0L Cannula Intake & Output 12/30 1600 12/30 0800 12/30 0000 Intake Total 360 400 340 Output Total 550 600 Balance -190 400 -260 Intake, IV 100 Intake, Oral 360 400 240 Number 4 1 Bowel Movements Output, Urine 550 600 Physical Exam General Appearance: awake, lethargic Head: normal appearance Neck: normal inspection Respiratory: normal breath sounds Cardiovascular: regular rate/rhythm Gastrointestinal: normal bowel sounds, soft Assessment/Plan Assessment/Plan This patient has diabetes mellitus type 2 associated with morbid obesity. Her diabetes control is being aggravated by steroid therapy when she was home. She had fallen and incurred a fracture of her right humerus. The patient is on very large doses of insulin at home. She also takes metformin. Her insulin dose at home is Levemir 25 units twice a day along with NovoLog 50 units before breakfast, 30 units before lunch, and 30 units before dinner. She has been subject to frequent hypoglycemia and had a sugar of only 36 when she got to the emergency room. In the hospital the patient's blood sugars recently on 25 units of Levemir twice a day having a fairly good range. She has received very little NovoLog. Her prednisone has been stopped. Her diet in the hospital was probably much different than at home. At home it appears that the patient has been over insulinized and subject to low blood sugar reactions as a result of too much insulin. Suggest reduce Levemir to 22 units twice a day. Adjust sliding scale NovoLog before meals to be less than 150 give no insulin, 151-200 give 4 units NovoLog, 201-250 give 5 units NovoLog, 251-300 give 6 units NovoLog, 301-350 give 7 units NovoLog, 351-400 give 8 units NovoLog. The patient is drowsy probably secondary to pain medicine but we should do her thyroid tests including a free T4 and TSH. The patient also has iatrogenic Yogi's disease. This undoubtedly contributed to her fracture. Because of her weight she cannot undergo a bone density study. I would however check her serum calcium, albumin, 25 hydroxy vitamin D level and parathyroid hormone level. If her renal function is normal we can begin alendronate 70 mg once a week first thing in the morning on an empty stomach. We may want to wait about a month before starting alendronate to give the fracture chance to heal. A good marker of increased bone turnover would be a C telopeptide measurement. This correlates highly with osteoporosis. Consult Acknowledgment - Thank you for your consult request.
[2017-12-30 20:15] VITALS: BP 130/72
[2017-12-30 23:43] VITALS: BP 130/60
[2017-12-31 05:51] VITALS: BP 128/64
--- NOTE | 2017-12-31 07:27 | PN- Housestaff ---
Ramses Kwan 12/31/17 0726: Subjective Follow-up For: Hypoglycemia, right humerus intra-articular fracture. Subjective: Patient seen and examined at bedside. He still complaining pain. She wants to increase her pain medication. She denies fever, chills, chest pain, palpitation , diarrhea, burning micturition, severe pain or numbness in the right upper extremity. Review of Systems Constitutional: Reports: see HPI. Objective Last 24 Hrs of Vital Signs/I&O Vital Signs Date Time Temp Pulse Resp B/P B/P Pulse O2 O2 Flow FiO2 Mean Ox Delivery Rate 12/31 1700 96 Nasal 3.0L Cannula 12/31 1522 97.8 112 22 110/60 98 12/31 0835 96 Nasal 3.0L Cannula 12/31 0800 97 Nasal 3.5L Cannula 12/31 0551 98.0 109 22 128/64 96 12/31 0550 95 Nasal 3.5L Cannula 12/31 0000 95 Nasal 3.5L Cannula 12/30 2343 98.5 116 21 130/60 96 Nasal Cannula 12/30 2244 125 98 12/30 2015 98.4 112 18 130/72 97 Nasal 3.5L Cannula Intake & Output 12/31 1600 12/31 0800 12/31 0000 Intake Total 1260 280 240 Output Total Balance 1260 280 240 Intake, Oral 1260 280 240 Physical Exam General Appearance: Alert, Oriented X3, Mild Distress Assessment/Plan Assessment: 57-year-old female morbidities, active smoker(one pack a day since 25 years), with past medical history of diabetes mellitus, aortic valve stenosis, NISHANT(BiPAP ), COPD, chronic pain on methadone, TBI in 1998 presented to emergency department with a chief complaint of swelling and pain of the right arm, decreased movement since 2 days. Her swelling in the right arm started after she tripped on the floor and felt on ground on the right side, she denies any history of unconsciousness, bleeding, numbness and right hand. She had a sling on the right hand. She also having low blood sugar level initial presentation it was 36 mg/dL. Problems list: = Right humerus head intra-articular fracture: = Hypoglycemic episodes = COPD = Diabetes mellitus = Osteoporosis =Pain control =Plan: =Orthopedic consult placed. Orthopedic advise conservative management due to her multiple comorbidities and will follow up after 2 weeks with fresh x-ray. Patient still complaining of pain. Pain management doctor consultation placed. Pain management doctor has seen the patient before hospitalization. He will see the patient today. We also added pregabalin for her neuropathic pain. =Hypoglycemic episode: Patient hypoglycemia may be due to high insulin dose. At the same time patient on high-dose of steroid which contribute hyperglycemia along with diabetes mellitus. Informatics Consultant consultation placed. I discussed the case with institution librarian. He want to decrease the dose of steroids, decrease the dose of insulin. Levemir insulin dose decreased from 25 to 22 units. He advised to start pregabalin, start alendronate after 1 month, start vitamin D supplements. He also recommended PTH, TSH, calcium levels. TSH level is normal. Remaining will follow up accordingly = She is already on high-dose pain medication, will adjust doses is per pain management doctor recommendation. = Patient will not be in position to go home and take self-care she will be sent to homecare health facility. =TRC/nebs =She denies Alps device for DVT prophylaxsis today =DVT PPX: Enoxaparin =Code status: Full code. Problem List: 1. Fall at home 2. COPD (chronic obstructive pulmonary disease) 3. Humerus fracture Pain Ratin Pain Location: Back pain, pain in right arm Pain Goal: Remain pain free Pain Plan: Pain medication, pain management doctor recommendation Tomorrow's Labs & Rationales: Anayeli Briseno 12/31/17 1325: Attending MD Review Statement Attending Statement Attending MD Statement: examined this patient, discuss w/resident/PA/NATIONAL SALES EXECUTIVE, agreed w/resident/PA/NATIONAL SALES EXECUTIVE, discussed with family, reviewed EMR data (avail), discussed with nursing, discussed with case mgmt, reviewed images, amended to note Attending Assessment/Plan: 57 year-old female with multiple co-morbidities, morbidly obese, active smoker( one pack a day since 25 years), NISHANT on Bipap, diabetes mellitus, aortic valve stenosis s/p some repair( unclear), COPD, chronic pain on methadone, TBI in 1998 presented to emergency department with a chief complaint of swelling and pain of the right arm and decreased movement since 2 days. Pt says she slept in wheen chair and it tipped over and she hurt her rt arm in the process. Pt in ER was found to have rt humeral head and neck communited fracture. She was also hypoglycemic. No new complaints. Vitals stable. Rt Humeral head and neck communiuted fracture. Ortho consulted and f/u on their recommendations. F/u PT / OT consult. Severe hypoglycemia- Endocrinology appreciated, decreased basal insulin. Monitor bood glucose Osteoporosis; likely steroid induced + vit D insufficency: Replace vit D. Alendronate after 1 month post fracture healing. Pain management: c/w home regimen. F/u pain management consult or call. gi/dvt prophylaxis
--- NOTE | 2017-12-31 07:58 | PN- Diabetes ---
Assessment/Plan Diabetes Assessment: Patient feels about the same. At home she was on a large dose of steroids which was aggravating her diabetes. She was also on large doses of insulin as documented in the note from yesterday which contributed to her hypoglycemia. In the hospital she is off prednisone and her insulin requirements are much smaller. The patient also undoubtely has steroid-induced osteoporosis as again she was on prednisone for a long period of time. The patient states she has severe diabetic neuropathy. She was on Lyrica as an outpatient. Plan: Suggest as mentioned above reduce her Levemir to 22 units twice a day and change the sliding scale as outlined in yesterday's note for her pre-meal NovoLog. With regard to her evaluation for osteoporosis, once again we should measure her calcium, albumin, 25-hydroxy vitamin D level, and PTH level. Thyroid function tests should also be checked. In about a month the patient should be started on alendronate 70 mg once a week. I would try to place the patient back on Lyrica starting with small doses and gradually reduce her dose of narcotic pain medication Subjective Subjective: Feels about the same. Has pain right arm. Review of Systems Constitutional: Denies: chills, fever. Cardiovascular: Denies: chest pain. Respiratory: Denies: cough, short of breath. Gastrointestinal: Denies: abdominal pain, nausea, vomiting. Objective Last 24 Hrs of Vital Signs/I&O Vital Signs Date Time Temp Pulse Resp B/P B/P Pulse O2 O2 Flow FiO2 Mean Ox Delivery Rate 12/31 0551 98.0 109 22 128/64 96 12/31 0550 95 Nasal 3.5L Cannula 12/31 0000 95 Nasal 3.5L Cannula 12/30 2343 98.5 116 21 130/60 96 Nasal Cannula 12/30 2244 125 98 12/30 2014 98.4 112 18 130/72 97 Nasal 3.5L Cannula 12/30 1710 98 Nasal 4.5L Cannula 12/30 1600 96 Nasal 3.5L Cannula 12/30 1433 98.2 126 21 142/75 95 Nasal Cannula 12/30 1055 Nasal 4.0L Cannula 12/30 1043 Nasal 4.0L Cannula 12/30 0822 92 Nasal 4.0L Cannula 12/30 0800 Nasal 5.0L Cannula Intake & Output 12/31 0800 12/31 0000 12/30 1600 Intake Total 280 240 360 Output Total 550 Balance 280 240 -190 Intake, Oral 280 240 360 Number 4 Bowel Movements Output, Urine 550 Vital Signs Date Time Temp Pulse Resp B/P B/P Pulse O2 O2 Flow FiO2 Mean Ox Delivery Rate 12/31 0551 98.0 109 22 128/64 96 12/31 0550 95 Nasal 3.5L Cannula 12/31 0000 95 Nasal 3.5L Cannula 12/30 2343 98.5 116 21 130/60 96 Nasal Cannula 12/30 2244 125 98 12/30 2014 98.4 112 18 130/72 97 Nasal 3.5L Cannula 12/30 1710 98 Nasal 4.5L Cannula 12/30 1600 96 Nasal 3.5L Cannula 12/30 1433 98.2 126 21 142/75 95 Nasal Cannula 12/30 1055 Nasal 4.0L Cannula 12/30 1043 Nasal 4.0L Cannula 12/30 0822 92 Nasal 4.0L Cannula 12/30 0800 Nasal 5.0L Cannula Intake & Output 12/31 0800 12/31 0000 12/30 1600 Intake Total 280 240 360 Output Total 550 Balance 280 240 -190 Intake, Oral 280 240 360 Number 4 Bowel Movements Output, Urine 550 Physical Exam General Appearance: alert, awake, pain on moving right arm. Neck: normal inspection Respiratory: normal breath sounds Extremities: right arm in sling
[2017-12-31 10:49] LABS: ABSOLUTE BASOPHIL COUNT 0 /CUMM (0.0-0.2); ABSOLUTE EOSINOPHIL COUNT 0.3 /CUMM (0.0-0.7); ABSOLUTE GRANULOCYTE CT 3.8 /CUMM (1.4-6.5); ABSOLUTE LYMPH COUNT 0.9 /CUMM (1.2-3.4); ABSOLUTE MONOCYTE COUNT 0.6 /CUMM (0.10-0.60); BASOPHIL % 0.3 % (0.0-2.0); EOSINOPHIL % 5.8 % (0-5); GRANULOCYTE % 66.7 % (42.2-75.2); HEMATOCRIT 34.8 % (37-47); MEAN CORPUSCULAR HGB 27.7 PG (27.0-31.0); MEAN CORPUSCULAR HGB CONC 32.8 G/DL (33.0-37.0); MEAN CORPUSCULAR VOLUME 84.5 FL (81.0-99.0); MEAN PLATELET VOLUME 8.6 FL (7.4-10.4); PLATELET COUNT 236 /CUMM (130-400); RBC DISTRIBUTION WIDTH 16.1 % (11.5-14.5); RED BLOOD CELL CT 4.12 /CUMM (4.20-5.40); WHITE BLOOD CELL COUNT 5.8 /CUMM (4.8-10.8)
[2017-12-31 15:22] VITALS: BP 110/60
[2017-12-31 21:46] VITALS: BP 130/80
[2018-01-01 06:39] VITALS: BP 122/94
--- NOTE | 2018-01-01 07:14 | PN- Housestaff ---
Ramses Kwan 01/01/18 0659: Subjective Follow-up For: Hypoglycemia, intraarticular fracture of right humurus Subjective: Patient seen and examine in bed, she is still complaing of pain and demanding for extra pain medication, she is counseled that she is on high dose of pain medication already and her pain doctor will be consulted today. She denies severe pain in right upper extremety, numbness,burning sensation,shortness of breath, palpitaion, chest pain, loose motion, fever, chills. Review of Systems Constitutional: Reports: see HPI. Objective Last 24 Hrs of Vital Signs/I&O Vital Signs Date Time Temp Pulse Resp B/P B/P Pulse O2 O2 Flow FiO2 Mean Ox Delivery Rate 01/01 0842 97 Nasal 3.0L Cannula 01/01 0800 96 Nasal 3.0L Cannula 01/01 0639 98.3 117 22 122/94 97 01/01 0000 98 Nasal 3.0L Cannula 12/31 2146 98.4 124 24 130/80 98 Nasal 3.0L Cannula 12/31 1700 96 Nasal 3.0L Cannula 12/31 1600 96 Nasal 3.0L Cannula 12/31 1522 97.8 112 22 110/60 98 Intake & Output 01/01 1600 01/01 0800 01/01 0000 Intake Total 150 600 Output Total 150 300 Balance 0 300 Intake, IV 0 Intake, Oral 150 600 Number 0 Bowel Movements Output, Urine 150 300 Physical Exam General Appearance: Alert, Oriented X3, Mild Distress Assessment/Plan Assessment: 57-year-old female morbidities, active smoker(one pack a day since 25 years), with past medical history of diabetes mellitus, aortic valve stenosis, NISHANT(BiPAP ), COPD, chronic pain on methadone(Methadone dependency), TBI in 1998 presented to emergency department with a chief complaint of swelling and pain of the right arm, decreased movement since 2 days. Her swelling in the right arm started after she tripped on the floor and felt on ground on the right side, she denies any history of unconsciousness, bleeding, numbness and right hand. She had a sling on the right hand. She also having low blood sugar level initial presentation it was 36 mg/dL. Problems list: = Right humerus head intra-articular fracture/intractable pain. = Hypoglycemic episodes = COPD = Diabetes mellitus = Osteoporosis =Pain control = Tachycardia =Plan: = Right humerus fracture/pain management: Orthopedic advise conservative management due to her multiple comorbidities and will follow up after 2 weeks with fresh x-ray. =Patient still complaining of intractable pain 01/25: Pain management doctor consultation placed. Pain management nursing staff Timbo visited patient, she recommended IV Toradol 30 mg q. 8, not to exceed 90 mg per 24 hour, for 72 hours. = Then tablet Toradol 10 mg for oral every q6 hours for 48 hours , then DC Toradol tablet and start tablet Tylenol 650 mg q6 hours at discharge to long- term rehab. =Hypoglycemic episode: Patient hypoglycemia may be due to high insulin dose. At the same time patient on high-dose of steroid which contribute hyperglycemia along with diabetes mellitus. Manager Respiratory Care consultation placed. I discussed the case with automotive electrical fitter. He want to decrease the dose of steroids, decrease the dose of insulin. Levemir insulin dose decreased from 25 to 22 units. He advised to start pregabalin, start alendronate after 1 month, start vitamin D supplements. He also recommended PTH, TSH, calcium levels these all labs are normal. -PTH: 42, -Calcium: 8.9 -Fasting blood sugar;179(Yesterday). = Tachycardia: -This patient having tachycardia, her heart rate is in the range of 100 and 140 since admission. Today heart rate is 117/mint. We did an EKG 2 days earlier, there was no new changes. = Patient will not be in position to go home and take self-care she will be sent to homecare health facility. Patient will stay admitted in the hospital for 72 hours for intractable pain management. = Patient declined OT today, = Patient agreed for PT evaluation. =TRC/nebs =Code status: Full code. Problem List: 1. Humerus fracture 2. Fall at home 3. COPD (chronic obstructive pulmonary disease) Pain Ratin Pain Location: Back pain, right shoulder Pain Goal: Remain pain free Pain Plan: Pain management pathway Tomorrow's Labs & Rationales: Anayeli Mckeon 01/01/18 1111: Attending MD Review Statement Attending Statement Attending MD Statement: examined this patient, discuss w/resident/PA/MEDICAL HEALTH RESEARCHER, agreed w/resident/PA/MEDICAL HEALTH RESEARCHER, discussed with family, reviewed EMR data (avail), discussed with nursing, discussed with case mgmt, reviewed images, amended to note Attending Assessment/Plan: 57 year-old female with multiple co-morbidities, morbidly obese, active smoker( one pack a day since 25 years), NISHANT on Bipap, diabetes mellitus, aortic valve stenosis s/p some repair( unclear), COPD, chronic pain on methadone, TBI in 1998 presented to emergency department with a chief complaint of swelling and pain of the right arm and decreased movement since 2 days. Pt says she slept in wheen chair and it tipped over and she hurt her rt arm in the process. Pt in ER was found to have rt humeral head and neck communited fracture. She was also hypoglycemic. C/O pain 12/25. Vitals stable. She is overall non coperative with nursing and physical therapy staff. Rt Humeral head and neck communiuted fracture. Ortho consulted and f/u on their recommendations. F/u PT / OT consult. Severe hypoglycemia- Endocrinology appreciated, decreased basal insulin. Monitor bood glucose Osteoporosis; likely steroid induced + vit D insufficency: Replacement of vit D ongoing. Alendronate after 1 month post fracture healing. Pain management: c/w home regimen. Added Toradol as per pain management HERACLIO Izquierdo/Pain management consult. gi/dvt prophylaxis
--- NOTE | 2018-01-01 09:42 | PN- Diabetes ---
Assessment/Plan Diabetes Assessment: 57-year-old woman has a known history of diabetes type 2 associated with morbid obesity. At home, she was taking Levemir 25 units twice a day, NovoLog 50 units before breakfast, 30 units before lunch, and 30 units before dinner; in addition, she was on prednisone 60 mg once a day. She was admitted to hospital for severe hypoglycemia of 36. Now she has been off on prednisone. In Hospital, she is on Levemir 22 units twice a day, Novolog coverage before meals. Her po intake has been poor. Her FSGs were 145, 191, 156, 279 and 176. Plan: 1. continue Levemir 22 units twice a day; 2. adjust Novolog coverage before meals and add another Novolog coverage at bedtime-- detail see the inpatient DM orders; 3. monitor FSGs. will follow. Inpatient Diabetes Orders Before Each Meal: Bolus Insulin: Novolog < 80 mg/dl: no coverage 80-100 mg/dl: no coverage 101-120 mg/dl: no coverage 121-150 mg/dl: no coverage 151-200 mg/dl: 2 units 201-250 mg/dl: 4 units 251-300 mg/dl: 6 units 301-350 mg/dl: 8 units 351-400 mg/dl: 10 units > 400 mg/dl: 12 units Bedtime: Bolus Insulin: Novolog < 80 mg/dl: no coverage 80-100 mg/dl: no coverage 101-120 mg/dl: no coverage 121-150 mg/dl: no coverage 151-200 mg/dl: no coverage 201-250 mg/dl: no coverage 251-300 mg/dl: 2 units 301-350 mg/dl: 3 units 351-400 mg/dl: 4 units > 400 mg/dl: 5 units Subjective Subjective: Her po intake has been poor. Objective Last 24 Hrs of Vital Signs/I&O Vital Signs Date Time Temp Pulse Resp B/P B/P Pulse O2 O2 Flow FiO2 Mean Ox Delivery Rate 01/01 0842 97 Nasal 3.0L Cannula 01/01 0800 96 Nasal 3.0L Cannula 01/01 0639 98.3 117 22 122/94 97 01/01 0000 98 Nasal 3.0L Cannula 12/31 2146 98.4 124 24 130/80 98 Nasal 3.0L Cannula 12/31 1700 96 Nasal 3.0L Cannula 12/31 1600 96 Nasal 3.0L Cannula 12/31 1522 97.8 112 22 110/60 98 Intake & Output 01/01 1600 01/01 0800 01/01 0000 Intake Total 150 600 Output Total 150 300 Balance 0 300 Intake, IV 0 Intake, Oral 150 600 Number 0 Bowel Movements Output, Urine 150 300 Findings Pertinent Lab/Romain Results: Laboratory Tests 01/01 0634 Chemistry Sodium (137 - 145 mmol/L) 136 L Potassium (3.5 - 5.1 mmol/L) 4.0 Chloride (98 - 107 mmol/L) 94 L Carbon Dioxide (22 - 30 mmol/L) 35 H Anion Gap (5 - 16) 7
--- NOTE | 2018-01-01 14:10 | History & Physical ---
General Information and HPI Source of Information: patient, old records Exam Limitations: poor historian Allergies/Medications Allergies: Coded Allergies: NO KNOWN ALLERGIES (03/19/11) Home Med list Albuterol Sulfate 2.5 MG/3 ML (0.083 %) VIAL.NEB 1 Vial INH/ABBEY 4 TIMES/DAY COPD (Reported) Albuterol Sulfate (Ventolin Hfa) 90 MCG HFA.AER.AD 2 PUF INH PRN COPD ( Reported) Carisoprodol 350 MG TABLET 1 TAB PO TID MUSCLE RELAXER (Reported) Fluticasone Propionate 50 MCG/ACTUATION SPRAY.SUSP 2 SPRAY NASB DAILY ALLERGIES (Reported) Fluticasone/Salmeterol (Advair 250-50 Diskus) 250 MCG-50 MCG/DOSE BLST.W.DEV 1 PUF INH BID COPD (Reported) Furosemide 80 MG TABLET 2 TAB PO QAM DIURETIC (Reported) Furosemide (Lasix) 80 MG TABLET 1 TAB PO QPM DIURETIC (Reported) Insulin Aspart (Novolog) 100 UNIT/ML VIAL 0 UNITS SC TIDAC/HS diabetes BEFORE MEALS Blood Insulin Sugar Units <80 0 81-100 13 101-120 13 121-150 13 151-200 15 201-250 17 251-300 19 301-350 21 351-400 23 >400 Call Doctor AT BEDTIME Blood Insulin Sugar Units <80 0 81-100 0 101-200 0 201-250 0 251-300 3 301-350 4 351-400 5 >400 Call Doctor Insulin Detemir (Levemir) 100 UNIT/ML VIAL 25 UNITS SC BID Diabetes Linaclotide (Linzess) 290 MCG CAPSULE 1 CAP PO DAILY CONSTIPATION (Reported) Lisinopril 20 MG TABLET 1 TAB PO DAILY BP (Reported) Metformin HCl 1,000 MG TABLET 1 TAB PO BID DM (Reported) Methadone Hydrochloride (Methadone HCl) (Unknown Strength) TABLET (Unknown Dose) PO BID PAin (Reported) Metolazone 2.5 MG TABLET 1 TAB PO 2XW DIURETIC (Reported) Oxycodone HCl 10 MG TABLET 1 TAB PO BID PAIN (Reported) Oxycodone HCl (Oxycontin) 30 MG TAB.ER.12H 1 TAB PO TID PAIN (Reported) Potassium Chloride 20 MEQ TAB.ER.PRT 1 TAB PO TID SUPPLEMENT (Reported) Prednisone 20 MG TABLET 60 MG PO DAILY COPD On Take 09/03-4/20 50 MG 09/05-09/06 40 MG 09/07-09/08 30 MG 09/09-09/10 20 MG contnue taking 10 mg daily after that until see dr Palomo or Dr Ramyond Pregabalin (Lyrica) 300 MG CAPSULE 1 CAP PO BID NERVE PAIN (Reported) Silver Sulfadiazine (Silvadene) 1 % CREAM..G. 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 Home Who Do You Live With? spouse Services at Home: None Smoking Status: Current Everyday Smoker Functional Ability Ambulation: cane Core Measures/Misc (02/01) Cerebrovascular Accident CVA/TIA Diagnosis: No VTE (View Protocol) VTE Risk Factors Smoker Sepsis (View protocol) Sepsis Present: No If YES complete Sepsis Event Note If YES complete Sepsis Event Note
[2018-01-01 14:47] VITALS: BP 128/90
[2018-01-01 22:28] VITALS: BP 130/80
--- NOTE | 2018-01-02 02:28 | Event Note ---
Event Note Event Note: 57-year-old female with past medical history hypertension type 2 diabetes mellitus obstructive sleep apnea, aortic stenosis, chronic back pain on methadone, spinal stenosis. She is not cooperating, manipulating and demanding every time for pain medication right now she brought some medication from home and her belongings and she took those pills right now, when the nurse inquire she said that I took two prednisone and 1 trazodone but nobody for sure know that how many tablets she had another bottle. She is in her baseline there is no new changes in her mental and physical state of health, she will be observed for any physical or mental changes.
--- NOTE | 2018-01-02 05:25 | PN- Housestaff ---
Subjective Follow-up For: Hypoglycemia, right humerus fracture Subjective: Patient seen and examined at bedside. She was complaining that I took 2 tablet prednisones and 1 tablet of trazodone which was with me here my belongings. The nursing staff is not going to give him medication. She apologized that she should not do this. The patient counseled. She still complaining of pain instead of high-dose NSAID, opiate, methadone. She denies chest pain, palpitation, abdominal pain, diarrhea, constipation, burning micturition, fever, chills. Review of Systems Constitutional: Reports: see HPI. Objective Last 24 Hrs of Vital Signs/I&O Vital Signs Date Time Temp Pulse Resp B/P B/P Pulse O2 O2 Flow FiO2 Mean Ox Delivery Rate 01/02 0000 Nasal 3.0L Cannula 01/01 2228 98.7 124 21 130/80 94 Nasal Cannula 01/01 2142 94 Nasal 3.0L Cannula 01/01 1447 98.6 125 21 128/90 94 Nasal Cannula 01/01 0842 97 Nasal 3.0L Cannula 01/01 0800 96 Nasal 3.0L Cannula 01/01 0639 98.3 117 22 122/94 97 Intake & Output 01/02 0800 01/02 0000 01/01 1600 Intake Total 480 Output Total 300 300 Balance -300 -300 480 Intake, Oral 480 Output, Urine 300 300 Physical Exam General Appearance: Alert, Oriented X3, Cooperative, Mild Distress Assessment/Plan Assessment: 57-year-old female morbidities, active smoker(one pack a day since 25 years), with past medical history of diabetes mellitus, aortic valve stenosis, NISHANT(BiPAP ), COPD, chronic pain on methadone(Methadone dependency), TBI in 1998 presented to emergency department with a chief complaint of swelling and pain of the right arm, decreased movement since 2 days. Her swelling in the right arm started after she tripped on the floor and felt on ground on the right side, she denies any history of unconsciousness, bleeding, numbness and right hand. She had a sling on the right hand. She also having low blood sugar level initial presentation it was 36 mg/dL. Problems list: = Right humerus head intra-articular fracture/intractable pain. = Hypoglycemic episodes = COPD = Diabetes mellitus = Osteoporosis =Pain control = Tachycardia =Plan: = Right humerus fracture/pain management: Orthopedic advise conservative management due to her multiple comorbidities and will follow up after 2 weeks with fresh x-ray. =Patient still complaining of intractable pain 01/25: Pain management doctor consultation placed. Pain management nursing staff Timbo visited patient, she recommended IV Toradol 30 mg q. 8, not to exceed 90 mg per 24 hour, for 72 hours. = Then tablet Toradol 10 mg for oral every q6 hours for 48 hours , then DC Toradol tablet and start tablet Tylenol 650 mg q6 hours at discharge to long- term rehab. Patient is very manipulative she is still complaining of pain. She opiate as well as methadone dependency. =Hypoglycemic episode: Patient hypoglycemia may be due to high insulin dose. At the same time patient on high-dose of steroid which contribute hyperglycemia along with diabetes mellitus. = Tachycardia: -This patient having tachycardia, her heart rate is in the range of 100 and 140 since admission. Yesterday heart rate is 124. We did an EKG 2 days earlier, there was no new changes. = Patient will not be in position to go home and take self-care she will be sent to homecare health facility. Patient will stay admitted in the hospital for 48 hours hours for intractable pain management. = Patient declined OT today, patient declining ALPS to prevent DVT. = Patient agreed for PT evaluation. =TRC/nebs =Code status: Full code. Problem List: 1. Fall at home 2. COPD (chronic obstructive pulmonary disease) 3. Humerus fracture Pain Ratin Pain Location: Right shoulder this patient, patient Pain Goal: Remain pain free Pain Plan: Pain management pathway Tomorrow's Labs & Rationales: n/a
[2018-01-02 06:32] VITALS: BP 140/90
--- NOTE | 2018-01-02 11:41 | PN- Diabetes ---
Assessment/Plan Diabetes Assessment: 57-year-old woman has a known history of diabetes type 2 associated with morbid obesity. At home, she was taking Levemir 25 units twice a day, NovoLog 50 units before breakfast, 30 units before lunch, and 30 units before dinner; in addition, she was on prednisone 60 mg once a day. She was admitted to hospital for severe hypoglycemia of 36. Now she has been off on prednisone. In Hospital, she is on Levemir 22 units twice a day, Novolog coverage before meals and Novolog coverage at bedtime. Her po intake has been improving. Her FSGs were 164 , 201, 230 and 175. Plan: 1. continue Levemir 22 units twice a day; 2. adjust Novolog coverage before meals -- detail see the inpatient DM orders; 3. continue the current Novolog coverage at bedtime; 4. monitor FSGs. will follow. Inpatient Diabetes Orders Before Each Meal: Bolus Insulin: Novolog < 80 mg/dl: no coverage 80-100 mg/dl: 3 units 101-120 mg/dl: 3 units 121-150 mg/dl: 3 coverage 151-200 mg/dl: 5 units 201-250 mg/dl: 7 units 251-300 mg/dl: 9 units 301-350 mg/dl: 11 units 351-400 mg/dl: 13 units > 400 mg/dl: 15 units Plan: as above. Subjective Subjective: Her po intake has improved. Objective Last 24 Hrs of Vital Signs/I&O Vital Signs Date Time Temp Pulse Resp B/P B/P Pulse O2 O2 Flow FiO2 Mean Ox Delivery Rate 01/02 0954 94 Nasal 3.0L Cannula 01/02 0800 95 Nasal 3.0L Cannula 01/02 0632 98.7 118 20 140/90 98 Nasal Cannula 01/02 0000 Nasal 3.0L Cannula 01/01 2228 98.7 124 21 130/80 94 Nasal Cannula 01/01 2142 94 Nasal 3.0L Cannula 01/01 1447 98.6 125 21 128/90 94 Nasal Cannula Intake & Output 01/02 1600 01/02 0800 01/02 0000 Intake Total Output Total 300 300 Balance -300 -300 Output, Urine 300 300 Patient 295 lb Weight
[2018-01-02 14:17] VITALS: BP 142/82
[2018-01-02 21:35] VITALS: BP 112/80
[2018-01-03 05:49] VITALS: BP 122/82
--- NOTE | 2018-01-03 08:58 | PN- Housestaff ---
David NORTH,Spencer 01/03/18 0857: Subjective Follow-up For: HUmerus fracture Subjective: Seen and examined while seated comfortbaly at the recliner. She still complains of [place] chronic pain. No acute o/n nurisng event. Review of Systems Constitutional: Reports: no symptoms. Objective Last 24 Hrs of Vital Signs/I&O Vital Signs Date Time Temp Pulse Resp B/P B/P Pulse O2 O2 Flow FiO2 Mean Ox Delivery Rate 01/03 1435 98.3 100 20 130/70 93 Nasal 3.0L Cannula 01/03 0803 99 Nasal 3.0L Cannula 01/03 0800 97 Nasal 3.0L Cannula 01/03 0549 98.4 124 22 122/82 100 Nasal 3.0L Cannula 01/03 0130 113 98 01/03 0000 95 Nasal 3.0L Cannula 01/02 2135 98.7 127 18 112/80 100 Intake & Output 01/03 1600 01/03 0800 01/03 0000 Intake Total 480 120 400 Output Total 400 Balance 480 -280 400 Intake, Oral 480 120 400 Output, Urine 400 Physical Exam General Appearance: Alert, Oriented X3, Cooperative Skin: No Significant Lesion Cardiovascular: Regular Rate, Normal S1, Normal S2 Lungs: Clear to Auscultation, Normal Air Movement Abdomen: Normal Bowel Sounds, Soft, No Tenderness Neurological: Normal Speech, Strength at 5/5 X4 Ext, Sensation Intact Assessment/Plan Assessment: 57-year-old lady with a past medical history significant for hypertension, diabetes, aortic valve replacement, COPD, obstructive sleep apnea, chronic pain, presents with right arm swelling and pain after mechanical fall from her wheelchair 2 daysa ago and is now presented with a radiological finding consistent with a commiuted right humeral head and neck fracture. Admitted to [facility], seen by orthopedic who reccomended conservative non surgical intervention. Assesment and Plan. Patient's pain seemed to be better control after the addition of Toradol IV which was added to her OxyContin gabapentin and methadone regimen. We are planning to switch to oral Toradol tomorrow in anticipation of discharge. Her sugars have been better controlled since admission, most likely the cessation of prednisone has contributed to this. We'll continue with the current sliding scale as recommended by endocrine team (appreciated). Patient has complex medical condition and will benefit from [facility], case management had already initiated the process and patient had a bed awaiting it looks and plan. However, today patient adamantly stated to me that she does not want to go to [facility] and will like to go home. We'll discuss discharge disposition tomorrow morning with case management, patient and patient 's . If patient is still adamant about going home will have to pursue visiting nurse tomorrow increased frequency. Problem List: 1. Fall at home 2. Humerus fracture Pain Ratin Pain Location: Muscular skeletal Pain Goal: Pain 4 or less Pain Plan: Per pathway Tomorrow's Labs & Rationales: CBC and BEP Jared NORTH,Amir 01/03/18 1508: Attending MD Review Statement Attending Statement Attending MD Statement: examined this patient, discuss w/resident/PA/FIELD ARTILLERY TARGETING TECHNICIAN, agreed w/resident/PA/FIELD ARTILLERY TARGETING TECHNICIAN, reviewed EMR data (avail), discussed with nursing
[2018-01-03 14:35] VITALS: BP 130/70
--- NOTE | 2018-01-03 16:04 | PN- Diabetes ---
Assessment/Plan Diabetes Assessment: 57-year-old woman has a known history of diabetes type 2 associated with morbid obesity. At home, she was taking Levemir 25 units twice a day, NovoLog 50 units before breakfast, 30 units before lunch, and 30 units before dinner; in addition, she was on prednisone 60 mg once a day. She was admitted to hospital for severe hypoglycemia of 36. Now she has been off on prednisone. In Hospital, she is on Levemir 22 units twice a day; Novolog coverage before meals was adjusted multiple times. In addition, she is on Novolog coverage at bedtime. Before Each Meal: Bolus Insulin: Novolog < 80 mg/dl: no coverage 80-100 mg/dl: 3 units 101-120 mg/dl: 3 units 121-150 mg/dl: 3 coverage 151-200 mg/dl: 5 units 201-250 mg/dl: 7 units 251-300 mg/dl: 9 units 301-350 mg/dl: 11 units 351-400 mg/dl: 13 units > 400 mg/dl: 15 units Her FSGs were 219, 245 and 116. Plan: continue the current insulin regimen for now; monitor FSGs; will follow. Subjective Subjective: She has been feeling slightly better. Objective Last 24 Hrs of Vital Signs/I&O Vital Signs Date Time Temp Pulse Resp B/P B/P Pulse O2 O2 Flow FiO2 Mean Ox Delivery Rate 01/03 1435 98.3 100 20 130/70 93 Nasal 3.0L Cannula 01/03 0803 99 Nasal 3.0L Cannula 01/03 0800 97 Nasal 3.0L Cannula 01/03 0549 98.4 124 22 122/82 100 Nasal 3.0L Cannula 01/03 0130 113 98 01/03 0000 95 Nasal 3.0L Cannula 01/02 2135 98.7 127 18 112/80 100 01/02 2015 96 Nasal 3.0L Cannula 01/02 1700 95 Nasal Cannula Intake & Output 01/03 1600 01/03 0800 01/03 0000 Intake Total 120 400 Output Total 400 Balance -280 400 Intake, Oral 120 400 Output, Urine 400
[2018-01-03 21:50] VITALS: BP 128/60
[2018-01-04 06:35] VITALS: BP 127/66
--- NOTE | 2018-01-04 07:52 | PN- Diabetes ---
Assessment/Plan Diabetes Assessment: The patient states she still has pain right. He states she would not go to rehab. She wants to go home. Review of her most recent blood sugars reveals her sugar yesterday was 116 before breakfast, 169 before lunch, 252 before dinner, and 327 at bedtime. The patient is presently on Levemir 20 units twice a day. She is also on sliding scale NovoLog. Plan: Suggest continue the present insulin. Patient goes home we can keep her on the present regimen with Levemir 22 units twice a day and sliding scale NovoLog before meals. Bedtime coverage could be eliminated. The patient should continue to take vitamin D as she has severe vitamin D deficiency. After she finishes the 8 doses of her ergocalciferol she should be placed on vitamin D3 1000 units once a day. In about 4 weeks she could begin alendronate 70 mg once a week. Subjective Subjective: Still has pain right shoulder Review of Systems Constitutional: Denies: chills, fever. Cardiovascular: Denies: chest pain. Respiratory: Denies: short of breath. Gastrointestinal: Denies: abdominal pain, nausea, vomiting. Objective Last 24 Hrs of Vital Signs/I&O Vital Signs Date Time Temp Pulse Resp B/P B/P Pulse O2 O2 Flow FiO2 Mean Ox Delivery Rate 01/04 0635 98.2 123 22 127/66 99 Nasal Cannula 01/04 0000 Nasal 3.0L Cannula 01/04 2204 97 Nasal 3.0L Cannula 01/03 2150 98.8 127 20 128/60 100 01/03 1435 98.3 100 20 130/70 93 Nasal 3.0L Cannula 01/03 0803 99 Nasal 3.0L Cannula 01/03 08 97 Nasal 3.0L Cannula Intake & Output 01/04 0800 01/04 0000 01/03 1600 Intake Total 300 200 480 Output Total 400 Balance 300 -200 480 Intake, Oral 300 200 480 Output, Urine 400 Vital Signs Date Time Temp Pulse Resp B/P B/P Pulse O2 O2 Flow FiO2 Mean Ox Delivery Rate 01/04 0635 98.2 123 22 127/66 99 Nasal Cannula 01/04 0000 Nasal 3.0L Cannula 01/04 2204 97 Nasal 3.0L Cannula 01/03 2150 98.8 127 20 128/60 100 01/03 1435 98.3 100 20 130/70 93 Nasal 3.0L Cannula 01/03 803 99 Nasal 3.0L Cannula 01/04 800 97 Nasal 3.0L Cannula Intake & Output 01/04 0800 01/04 0000 01/03 1600 Intake Total 300 200 480 Output Total 400 Balance 300 -200 480 Intake, Oral 300 200 480 Output, Urine 400 Physical Exam General Appearance: alert, awake, comfortable
--- NOTE | 2018-01-04 08:28 | PN- Housestaff ---
Ramses Kwan 01/04/18 0827: Subjective Follow-up For: Right humerus head freacture, Hypoglycemia Subjective: Patient seen and examined at bedside. She was doing well. She wanted to go home. Long-term rehab offered but she denied. She wanted to go home with home healthcare services. She denies chest pain, palpitation, abdominal pain, diarrhea, constipation, burning micturition, fever, chills Review of Systems Constitutional: Reports: see HPI. Objective Last 24 Hrs of Vital Signs/I&O Vital Signs Date Time Temp Pulse Resp B/P B/P Pulse O2 O2 Flow FiO2 Mean Ox Delivery Rate 01/04 1547 99.0 120 24 132/70 95 01/04 0845 92 Nasal 3.0L Cannula 01/04 08 96 Nasal 2.0L Cannula 01/04 0635 98.2 123 22 127/66 99 Nasal Cannula 01/04 0000 Nasal 3.0L Cannula 01/03 2204 97 Nasal 3.0L Cannula 01/03 2150 98.8 127 20 128/60 100 Intake & Output 01/04 1600 01/04 0800 01/04 0000 Intake Total 1600 300 200 Output Total 200 400 Balance 1400 300 -200 Intake, Oral 1600 300 200 Output, Urine 200 400 Physical Exam General Appearance: Alert, Oriented X3, Cooperative, No Acute Distress Assessment/Plan Assessment: 57-year-old female morbidities, active smoker(one pack a day since 25 years), with past medical history of diabetes mellitus, aortic valve stenosis, NISHANT(BiPAP ), COPD, chronic pain on methadone(Methadone dependency), TBI in 1998 presented to emergency department with a chief complaint of swelling and pain of the right arm, decreased movement since 2 days. Her swelling in the right arm started after she tripped on the floor and felt on ground on the right side, she denies any history of unconsciousness, bleeding, numbness and right hand. She had a sling on the right hand. She also having low blood sugar level initial presentation it was 36 mg/dL. Problems list: = Right humerus head intra-articular fracture/intractable pain. = Hypoglycemic episodes = COPD = Diabetes mellitus = Osteoporosis =Pain control = Tachycardia =Plan: = Right humerus fracture/pain management: Orthopedic advise conservative management due to her multiple comorbidities and will follow up after 2 weeks with fresh x-ray. We will continue on vitamin D supplement and will start alendronate after 4 weeks. =Patient still complaining of intractable pain 01/25: Pain management doctor consultation placed. Pain management nursing staff Timbo visited patient, she recommended IV Toradol 30 mg q. 8, not to exceed 90 mg per 24 hour, for 72 hours. = Then tablet Toradol 10 mg for oral every q6 hours for 48 hours , then DC Toradol tablet and start tablet Tylenol 650 mg q6 hours at discharge to long- term rehab. Patient is very manipulative she is still complaining of pain. She opiate as well as methadone dependency. =Hypoglycemic episode: Patient hypoglycemia may be due to high insulin dose. At the same time patient on high-dose of steroid which contribute hyperglycemia along with diabetes mellitus. = Tachycardia: -This patient having tachycardia, her heart rate is in the range of 100 and 140 since admission. Yesterday heart rate is 124. We did an EKG 2 days earlier, there was no new changes. =She wanted to go home with home healthcare services = Patient declined OT today, patient declining ALPS to prevent DVT. = Patient agreed for PT evaluation. =TRC/nebs =Code status: Full code. We will discharge today = Patient counseled regarding her insulin = Patient counseled regarding taking care of her right humerus fracture = Patient counseled to be conscious and right arm ambulation Problem List: 1. Fall at home 2. COPD (chronic obstructive pulmonary disease) 3. Humerus fracture Pain Ratin Pain Location: Backache, right shoulder Pain Goal: Remain pain free Pain Plan: Pain pathway Tomorrow's Labs & Rationales: No labs Anayeli Orr 01/04/18 1306: Attending MD Review Statement Attending Statement Attending MD Statement: examined this patient, discuss w/resident/PA/INDUSTRIAL MECHANIC, agreed w/resident/PA/INDUSTRIAL MECHANIC, discussed with family, reviewed EMR data (avail), discussed with nursing, discussed with case mgmt, reviewed images, amended to note Attending Assessment/Plan: 57 year-old female with multiple co-morbidities, morbidly obese, active smoker( one pack a day since 25 years), NISHANT on Bipap, diabetes mellitus, aortic valve stenosis s/p some repair( unclear), COPD, chronic pain on methadone, TBI in 1998 presented to emergency department with a chief complaint of swelling and pain of the right arm and decreased movement since 2 days. Pt says she slept in wheen chair and it tipped over and she hurt her rt arm in the process. Pt in ER was found to have rt humeral head and neck communited fracture. She was also hypoglycemic. C/O pain better controlled. Vitals stable. She ambulated to bathroom. Rt Humeral head and neck communiuted fracture. Ortho consulted and f/u on their recommendations. F/u PT / OT consult. Offered PT/OT services which she declined inpatient. Severe hypoglycemia resolved- Endocrinology f/u at discharge, decreased basal insulin. Osteoporosis; likely steroid induced + vit D insufficency: Replacement of vit D ongoing. Alendronate after 1 month post fracture healing. Pain management: c/w home regimen. Added Toradol as per pain management HERACLIO Izquierdo/Pain management consult. Contniue PO toradol at discharge. Creatinine stable. Anticipate discharge planning with home services soon as her clinical condition significantly improved.
[2018-01-04] MEDS ORDERED: VITAMIN D250000 UNIT PO ×2 (12:42→13:09)
[2018-01-04] MEDS ORDERED: KETOROLAC TROME10 M1 PO (12:54)
[2018-01-04] MEDS ORDERED: NOVOLOG100 UNIT/2 SC ×2 (12:58→13:13)
--- NOTE | 2018-01-04 13:16 | Patient Discharge Instructions ---
Discharge Instructions General Discharge Information You were seen/treated for: Fracture Uncontrolled sugars Special Instructions: Please follow up with your primary care within 1 week Please follow up with your pain doctor within 1wee after discharge Please follow up with your client renewal specialist within 1 week Acute Coronary Syndrome Inclusion Criteria At DC or during hospital stay patient has or had the following: ACS DIAGNOSIS No Discharge Core Measures Meds if any: Prescribed or Continued at Discharge Meds if any: NOT Prescribed or Continued at Discharge Congestive Heart Failure Inclusion Criteria At DC or during hospital stay patient has or had the following: CHF DIAGNOSIS No Discharge Core Measures Meds if any: Prescribed or Continued at Discharge Meds if any: NOT Prescribed or Continued at Discharge Cerebrovascular accident Inclusion Criteria At DC or during hospital stay patient has or had the following: CVA/TIA Diagnosis No Discharge Core Measures Meds if any: Prescribed or Continued at Discharge Meds if any: NOT Prescribed or Continued at Discharge Venous thromboembolism Inclusion Criteria VTE Diagnosis No VTE Type NONE VTE Confirmed by (Test) NONE Discharge Core Measures - Per Current guidelines, there needs to be overlap - treatment for the first 5 days of Warfarin therapy. - If discharged on Warfarin prior to 5 days of - overlap therapy, the patient will need to be - assessed for post discharge needs including - *Post discharge parental anticoagulation - *Warfarin and/or parental anticoagulation education - *Follow up date to check INR post discharge Meds if any: Prescribed or Continued at Discharge Note: Overlap Therapy is Warfarin and Anticoagulant Meds if any: NOT Prescribed or Continued at Discharge
[2018-01-04] MEDS ORDERED: ALENDRONATE SOD70 M2 PO ×2 (13:21→13:32)
[2018-01-04 15:47] VITALS: BP 132/70
--- NOTE | 2018-01-05 15:17 | Discharge Summary ---
Visit Information Visit Dates Admission Date: 12/28/17 Discharge Date: 01/04/18 Hospital Course Course Attending Physician: Anayeli Orr MD Primary Care Physician: Sangeeta NORTH,Adin Allen Other Care Providers: Dr Kash MD([employer]), Hospital Course: 57-year-old female morbidly obese, active smoker(one pack a day since 25 years), with past medical history of diabetes mellitus, aortic valve stenosis, NISHANT(BiPAP ), COPD, chronic pain on methadone, TBI in 1998 presented to emergency department with a chief complaint of right humerus intra-articular head fracture and hypoglycemia. Her labs significant for borderline low potassium level which is 3.4, her HB 11.6 g/dL, INR is 1.3, blood pressure 99/54, oxygen saturation 97% on 4 L of oxygen and blood sugar level 36mg/dl. Examination right arm sling, decreased movement in the right arm, power 3/5, sensation is intact, there is no sign of cyanosis, no laceration, Chest: Bilateral normal air entry, no added sounds CVS: S1, S2 cannot appreciate any murmur. In emergency she was started on D10 IV fluid at 125 mils per hour, blood sugar got normal, then she was started on D5 75 mL and blood sugar maintain between 150 and 1 80 mg/dL. Accu-Chek monitoring done. She was shifted to general medical floor. Endocrinology consultation appreciated. He started on Levemir and NovoLog. Vitamin D was started because she had osteoporosis. Orthopedic consultation placed conservative management recommended. For her pain management, pain medication oxycodone, OxyContin, methadone, ketorolac started, pain management doctor consultation placed. Pain medication started as per recommended dose. Her pain controlled, blood sugar became normal, she is ready to go home health care. Patient discharged home today. At the time of discharge she ambulate well, she was vitally stable. She was counseled regarding her strict sugar control, insulin use, taking care of her arm, ambulation with great care, quit smoking, decrease weight. Allergies: Coded Allergies: NO KNOWN ALLERGIES (03/19/11) Disposition Summary Disposition Principal Diagnosis: Right arm humerus head intra-articular fracture, diabetes mellitus type 2 with hypoglycemic episode Additional Diagnosis: Hypertension, aortic stenosis, COPD, obstructive sleep apnea, chronic back pain. Discharge Disposition: home health services Discharge Instructions General Discharge Information Code Status: Full Code Patient's Diet: CC to diabetic diet Patient's Activity: Ambulate up to her comfort level with support, walker Follow-Up Instructions/Appts: Follow-up with primary care physician in 1 week Follow up with pain management doctor in 1 week Follow up with orthopedic within 1 week In case of medical attention, since swelling, pain and right hand, hypoglycemia please can take her primary care physician Regular use of insulin and other medication Quit smoking Weight loss Medications at Discharge Discharge Medications: Stop taking the following medications: Metformin HCl (Metformin HCl) 1,000 MG TABLET ORAL TWICE DAILY Qty = 60 Prednisone (Prednisone) 20 MG TABLET ORAL DAILY Qty = 90 Continue taking these medications: Albuterol Sulfate (Albuterol Sulfate) 2.5 MG/3 ML (0.083 %) VIAL.NEB 1 Vial Inhale Solution 4 TIMES A DAY Qty = 90 Comments: Last Taken: 01/04/18 Time: 1223PM Furosemide (Lasix) 80 MG TABLET 1 Tablet ORAL Every night Comments: Last Taken: 01/04/18 Time: 804AM Fluticasone/Salmeterol (Advair 250-50 Diskus) 250 MCG-50 MCG/DOSE BLST.W.DEV 1 Puff Inhale through mouth TWICE DAILY Qty = 60 Comments: NOT GIVEN IN HOSPITAL Tiotropium [place] (Spiriva) 18 MCG CAP.W.DEV 1 Capsule Inhale through mouth DAILY Qty = 30 Comments: NOT GIVEN IN HOSPITAL Potassium Chloride (Potassium Chloride) 20 MEQ TAB.ER.PRT 1 Tablet ORAL THREE TIMES DAILY Qty = 90 Comments: NOT GIVEN IN HOSPITAL Albuterol Sulfate (Ventolin Hfa) 90 MCG HFA.AER.AD 2 Puff Inhale through mouth as needed for COPD Qty = 18 Comments: NOT GIVEN IN HOSPITAL Trazodone HCl (Trazodone HCl) 50 MG TABLET 1 Tablet ORAL Every night Qty = 30 Comments: NOT GIVEN IN HOSPITAL Fluticasone Propionate (Fluticasone Propionate) 50 MCG/ACTUATION SPRAY.SUSP 2 [place] Both sides of nose DAILY Qty = 16 Comments: Last Taken: 01/04/18 Time: 803AM Carisoprodol (Carisoprodol) 350 MG TABLET 1 Tablet ORAL THREE TIMES DAILY Qty = 90 Comments: Last Taken: 01/04/18 Time: 150PM Lisinopril (Lisinopril) 20 MG TABLET 1 Tablet ORAL DAILY Qty = 30 Comments: NOT GIVEN IN HOSPITAL Pregabalin (Lyrica) 300 MG CAPSULE 1 Capsule ORAL TWICE DAILY Qty = 60 Comments: Last Taken: 01/04/18 Time: 805AM Insulin Detemir (Levemir) 100 UNIT/ML VIAL 25 Units SC TWICE DAILY Qty = 1 Comments: Last Taken: 01/04/18 Time: 804AM Oxycodone HCl (Oxycodone HCl) 10 MG TABLET 1 Tablet ORAL TWICE DAILY Comments: Last Taken: 01/04/18 Time: 805AM Oxycodone HCl (Oxycontin) 30 MG TAB.ER.12H 1 Tablet ORAL THREE TIMES DAILY Comments: Last Taken: 01/04/18 Time: 150PM Linaclotide (Linzess) 290 MCG CAPSULE 1 Capsule ORAL DAILY Qty = 30 Comments: Last Taken: 01/04/18 Time: 805AM Silver Sulfadiazine (Silvadene) 1 % CREAM..G. 1 Application On the skin DAILY as needed for BURN Qty = 400 Instructions: apply to affected area(s) Comments: NOT GIVEN IN HOSPITAL Start taking the following new medications: Ergocalciferol (Vitamin D2) (Vitamin D2) 50,000 UNIT CAPSULE 50,000 International Unit ORAL ONCE A WEEK Qty = 7 No Refills Instructions: TAKE 1 WEEKLY FOR 7 WEEKS, AND THEN SWICTH TO VITAMIN D3 1000 IU DAILY Comments: NOT GIVEN IN HOSPITAL Alendronate Sodium (Alendronate Sodium) 70 MG TABLET 1 Tablet ORAL Once a Week Qty = 4 No Refills Instructions: in the morning, at least 30 minutes before the first food, beverage, or medication of the day (start on 02/04) Comments: NOT GIVEN IN HOSPITAL Ketorolac Tromethamine (Ketorolac Tromethamine) 10 MG TABLET 1 Tablet ORAL THREE TIMES DAILY Qty = 21 No Refills Comments: Last Taken: 01/03/18 Time: 503PM The following medications have been changed: Old: Insulin Aspart (Novolog) 100 UNIT/ML VIAL 0 Units SC BEFORE MEALS AND AT BEDTIME Qty = 30 New: Insulin Aspart (Novolog) 100 UNIT/ML VIAL 0 Units SC 3 TIMES DAILY BEFORE MEALS Qty = 30 Instructions: BEFORE MEALS Blood Insulin Sugar Units <80 0 81-150 3 151-200 5 201-250 7 251-300 9 301-350 11 351-400 13 >400 15 (Call MD) [phone] >400 Call Doctor Comments: Last Taken: 01/04/18 Time: 1254PM Copies To: Sangeeta NORTH,Adin Allen
== END 2018-01-04 17:35 | disposition home health service (06) | DRG 638 ==
LOC: ERH 11:01 → ERHI 13:49 → 2NA 13:49 → ENRESERV 12-29 00:36 → 2NA 12-29 02:27 → ENPENDDIS 01-04 13:40 → ENTRNSPT 01-04 16:46 → EDTRNSPTSTS 01-04 17:18 → 2NA 01-04 17:35 → CMPTRNSPT 01-04 17:49
PROVIDERS: Physician Assistant; Preventive Medicine Addiction Medicine; Student in an Organized Health Care Education/Training Program
PROC: 5A09357 Assistance with Respiratory Ventilation, Less than 24 Consecutive Hours, Continuous Positive Airway Pressure (ICD-10-PCS; principal; 2017-12-28)
DX: E11.649 Type 2 diabetes mellitus with hypoglycemia without coma (principal); Z68.42 Body mass index [BMI] 45.0-49.9, adult; E24.2 Drug-induced Cushing's syndrome; M80.021A Age-related osteoporosis with current pathological fracture, right humerus, initial encounter for fracture; E66.01 Morbid (severe) obesity due to excess calories; E11.40 Type 2 diabetes mellitus with diabetic neuropathy, unspecified; G47.33 Obstructive sleep apnea (adult) (pediatric); J44.9 Chronic obstructive pulmonary disease, unspecified; G89.29 Other chronic pain; I10 Essential (primary) hypertension; E78.5 Hyperlipidemia, unspecified; R00.0 Tachycardia, unspecified; M54.9 Dorsalgia, unspecified; F17.200 Nicotine dependence, unspecified, uncomplicated; Z79.4 Long term (current) use of insulin; T38.3X5A Adverse effect of insulin and oral hypoglycemic [antidiabetic] drugs, initial encounter; Z87.820 Personal history of traumatic brain injury
CPT/HCPCS: 2NASP; ERO; 36415; 36592; 73030-RT; 73080-RT; 73130-RT; 80307; 82436; 82652; 93005; 93010; 96374; 96376; 97110-GO; 97165-GO; G0480; J0131; J1650; J1885; J7042